=== PATIENT | female | born 1975 | race Caucasian/White ===

== ENCOUNTER 2020-12-31 00:27 | Observation (INO) | payer OTHER, SELFPAY ==
[2020-12-31] VITALS (54 sets, daily range): BP systolic 97–146; BP diastolic 55–91; PULSE 54–92; RESP 12–21; TEMP 36.1–36.8; O2SAT 96–100; BMI 29.5
--- NOTE | ~2020-12-31 | CT_ITS ---
EXAMINATION: CT brain wo con INDICATION: Headache and altered mental status COMPARISON: None TECHNIQUE: Standard unenhanced head CT. The dose-length product (DLP) was 605.33 mGy-cm. The mA was a djusted according to patient size. Iterative reconstruction technique was employed. FINDINGS: There is no intracranial hemorrhage, acute infarction, or abnormal mass lesion. The ventric les are normal. There is no abnormal mass effect or midline shift. The hercules-white matter differentiat ion is normal. The basal cisterns are patent. The orbits are normal. There is mild mucosal thickening of the paranasal sinuses. IMPRESSION: 1. No acute intracranial abnormality. Reviewed, dictated and finalized at location A.
--- NOTE | ~2020-12-31 | CT_ITS ---
EXAMINATION: CTA brain carotid DATE: 12/31/2020 06:48 INDICATION: Headache, repetitive speech TECHNIQUE: Computed tomographic angiography (CTA) of the head was performed without and with 100 mL O mnipaque-350 intravenous contrast. CTA of the neck was performed with intravenous contrast. The dose- length product was 1131.84 mGy-cm. Maximum intensity projection and volume rendered 3D-reconstruction s were created by the technologist on a separate workstation. Automated exposure control and iterativ e reconstruction technique were employed. COMPARISON: None. FINDINGS: HEAD CTA: There is no intracranial hemorrhage, acute infarction, or abnormal mass lesion. The ventric les are normal. There is no abnormal mass effect or midline shift. The hercules-white matter differentiat ion is normal. The basal cisterns are patent. The orbits are normal. There is mild mucosal thickening of the paranasal sinuses. . There is no significant stenosis of the basilar artery or posterior cerebral arteries. There is no si gnificant stenosis of the intracranial internal carotid arteries or the anterior or middle cerebral a rteries. The anterior communicating artery and left posterior communicating arteries are normal. The right posterior communicating artery is diminutive. There is no aneurysm. NECK CTA: The thyroid gland is unremarkable. The submandibular and parotid glands are symmetric. Ther e is no lymphadenopathy. There are no masses identified. The airway is unremarkable. There is mild ce rvical spondylosis. The superior mediastinum is unremarkable. There is 0% stenosis of the proximal right internal carotid artery relative to normal distal artery l umen diameter (NASCET criteria). There is 0% stenosis of the proximal left internal carotid artery re lative to normal distal artery lumen diameter. IMPRESSION: 1. No acute intracranial abnormality. Unremarkable head CTA. 2. 0% stenosis of the proximal right internal carotid artery relative to normal distal artery lumen d iameter (NASCET criteria). 3. 0% stenosis of the proximal left internal carotid artery relative to normal distal artery lumen di ameter. Reviewed, dictated and finalized at location A. IMPRESSION: 1. No acute intracranial abnormality. Unremarkable head CTA. 2. 0% stenosis of the proximal right internal carotid artery relative to normal distal artery lumen diameter (NASCET criteria). 3. 0% stenosis of the proximal left internal carotid artery relative to normal distal artery lumen diameter.
--- NOTE | ~2020-12-31 | MR_ITS ---
EXAMINATION: MR brain/brain stem wo/w con EXAM DATE: 12/31/2020 12:57 INDICATION: Headache. TECHNIQUE: Magnetic resonance imaging (MRI) of the brain/brain stem obtained without contrast. Sagit rich T1, axial diffusion, gradient echo (T2*), T1, T2, FLAIR sequences obtained. Patient was then inj ected with 14 cc intravenous Multihance contrast. Axial and coronal postcontrast T1 weighted sequence s obtained. Correlation is made to head CT earlier same day. FINDINGS: Small region of left periventricular nonspecific white matter signal T2 hyperintensity, wit hin normal limits for patient's age. There are no areas of restricted diffusion to suggest acute infa rction. There is no acute hemorrhage seen on the T2*, a hemosiderin sensitive sequence. No intrapar enchymal brain mass. The ventricles are normal in size. There are no extra-axial collections. Flow voids are seen in the cerebral arteries on the T2-weighted sequences consistent with their expected p atency. The orbits are unremarkable. Soft tissue is unremarkable. There are no areas of abnormal enhancement on the postcontrast images. IMPRESSION: 1. No acute intracranial findings. Reviewed, dictated and finalized at location B.
[2020-12-31 00:59] LABS: Basophils Percent Auto 0.5 % (0.2-1.2); Eosinophils Absolute Auto 0.2 K/mm3 (0-0.3); Eosinophils Percent Auto 2.2 % (0-4.4); Hematocrit 44.5 % (37.0-47.0); Immature Granulocyte Absolute 0.03 K/mm3 (0.00-0.031); Immature Granulocyte Percent A 0.4 % (0-0.5); Lymphocytes Absolute Auto 2.03 K/mm3 (0.9-3.2); Lymphocytes Percent Auto 27.3 % (18.3-44.2); Mean Corpuscular HGB Conc 33.7 g/dl (32-36); Mean Corpuscular Hemoglobin 29.4 pg (26-34); Mean Corpuscular Volume 87.3 fl (80-100); Mean Platelet Volume 10.4 fl (7.4-10.4); Monocytes Absolute Auto 0.4 K/mm3 (0.1-0.6); Monocytes Percent Auto 5.2 % (2.6-8.5); Neutrophils Absolute Auto 4.8 K/mm3 (1.3-6.7); Neutrophils Percent Auto 64.4 % (45.5-73.1); Platelet Count Result 302 k/mm3 (150-375); Red Cell Distribution Width 13.2 % (11.5-14.5); White Blood Count 7.4 K/mm3 (4.5-10.0)
[2020-12-31] MEDS: SODIUM CHLORIDE 0.9% IV 1,000 ML 999 ML IV CONT (01:04)
[2020-12-31] MEDS: PROCHLORPERAZINE EDISYLATE 10 MG/2 ML VIAL IV PUSH (01:05)
[2020-12-31] MEDS: KETOROLAC 30 MG/ML VIAL (*BKC) 15 MG IV PUSH (01:05)
[2020-12-31] MEDS: diphenhydrAMINE HCl INJ 50 MG/ML VIAL IV PUSH (01:05)
[2020-12-31 01:06] LABS: Add Urine Microscopic? NO; Appearance Urine Clear (Clear); Bilirubin Urine Negative (Negative); Blood Urine Negative (Negative); Color Urine Yellow (Yellow); Glucose Urine UA Negative (Negative); Ketones Urine Negative (Negative); Leukocyte Esterase Ur Negative LEU/UL (Negative); Nitrate Urine Negative (Negative); Protein Urine Negative (Negative); Specific Grav Ur 1.015 (1.001-1.035); Urobilinogen Urine Negative mg/dL (<2.0)
--- NOTE | 2020-12-31 01:09 | ED.GENADULT ---
HPI - General Adult General Chief complaint: Unspecified <Andrew Mueller MD - Last Filed: 12/31/20 07:06> Stated complaint: nausea vomiting x 30 min <Andrew Mueller MD - Last Filed: 12/31/20 07:06> Time Seen by Provider: 12/31/20 00:38 <Andrew Mueller MD - Last Filed: 12/31/20 07:06> History of Present Illness HPI narrative: Patient is a 45-year-old female presents to emergency department with chief complaint of headache. Patient reports that this evening she started having severe pain in her head reports nausea photophobia patient states is not able to get comfortable in any position reports is not improved by anything. Patient denies focal neurological deficit. Patient significant other reports symptoms started this evening around midnight patient does report that she has been having a headache for about a week. <Andrew Mueller MD - Last Filed: 12/31/20 07:06> Related Data Home medications: Home Medications Medication Instructions Recorded Confirmed No Home Medications 12/31/20 12/31/20 <Andrew Mueller MD - Last Filed: 12/31/20 07:06> Allergies/adverse reactions: Allergies Allergy/AdvReac Type Severity Reaction Status Date / Time No Known Allergies Allergy Verified 12/31/20 00:31 <Andrew Mueller MD - Last Filed: 12/31/20 07:06> Review of Systems Review of Systems: A 10 system review of systems was completed on the patient and is negative except for what is stated in the HPI. Nursing and ancillary documentation was reviewed. <Andrew Mueller MD - Last Filed: 12/31/20 07:06> Exam Narrative: GENERAL: Well-appearing, well-nourished, and in no acute distress. HEAD: Normocephalic, atraumatic. EYES: PERRLA and EOMI. ENT: Nares clear, no rhinorrhea or epistaxis. Mucous membranes moist. NECK: Supple. CHEST: Clear to auscultation. No respiratory distress. HEART: Regular rate and rhythm. No murmur heard. Normal peripheral pulses. ABDOMEN: Soft, nontender, nondistended, normal active bowel sounds. EXTREMITIES: Normal range of motion. No edema. SKIN: Warm, dry, no rash. NEURO: No focal deficits. Alert and oriented x3. PSYCH: Normal mood and affect. <Andrew Mueller MD - Last Filed: 12/31/20 07:06> Course Course Emergency Course: Patient was treated with antiemetics Benadryl and low-dose Toradol the patient after receiving these does report that the headache has improved but has occasional episodes where she has had repeated questioning and has had problems answering the appropriate answer to a question. The patient still has no focal motor deficit the case was discussed with the on-call stroke neurologist at [facility] who given the patient's overall presentation felt this was highly unlikely to be a stroke event. A CTA was obtained to determine if there is any large vessel occlusion. If this is negative the plan will be to admit the patient for MRI and neurological consultation <Andrew Mueller MD - Last Filed: 12/31/20 07:06> Reevaluation(s) Reevaluation #2: Patient with persistent headache. Informed results. Will admit for observation and MRI and pain control. Discussed case with neurology as well as hospitalist service. <Pernell Chaudhary MD - Last Filed: 12/31/20 08:17> Date: 12/31/20 <Pernell Chaudhary MD - Last Filed: 12/31/20 08:17> Time: 08:16 <Pernell Chaudhary MD - Last Filed: 12/31/20 08:17> Vital Signs Vital signs: Vital Signs Temperature 97.7 F 12/31/20 00:23 Pulse Rate 84 12/31/20 00:23 Respiratory Rate 20 12/31/20 00:23 Blood Pressure 131/82 12/31/20 00:23 Pulse Oximetry 99 12/31/20 00:23 Temperature 97.7 F 12/31/20 00:23 Pulse Rate 72 12/31/20 07:32 Respiratory Rate 16 12/31/20 07:32 Blood Pressure 139/73 12/31/20 07:30 Pulse Oximetry 98 12/31/20 07:01 <Andrew Mueller MD - Last Filed:
[2020-12-31 01:12] LABS: Alanine Aminotransferase 13 U/L (4-35); Albumin Level 4.3 g/dL (3.5-5.1); Alkaline Phosphatase 62 U/L (38-126); Anion Gap 11 mmol/L (8-16); Aspartate Amino Transferase 18 U/L (14-36); Bilirubin,Total 0.3 mg/dL (0.2-1.3); Blood Urea Nitrogen 11 mg/dL (7-17); Calcium 9.5 mg/dL (8.4-10.2); Carbon Dioxide 22 mmol/L (22-30); Chloride 104 mmol/L (98-107); Estimated Glomerular Filt Rate > 60; Glucose 119 mg/dL (65-110); Lipase 124 U/L (23-300); Potassium 3.6 mmol/L (3.4-5.0); Sodium 137 mmol/L (137-145)
[2020-12-31 01:13] LABS: Lactic Acid Reflex 1.4 mmol/L (0.7-2.1)
--- NOTE | 2020-12-31 01:27 | PC.NURSE ---
Pt asked to go to the bathroom. pct notified and upon entry to room found pt squatting and urinating on the floor.
--- NOTE | 2020-12-31 01:56 | PC.NURSE ---
Pt here after ems called to her home for vomiting. On arrival, pt c/o headache x 1 week worse tonight. able to answer her name, and speech delayed but clear. unable to state birthday. per boyfriend, pt has no hx of same. he reports pt c/o stomach pain x 1 week and brown tonight. On MD arrival in room, pt more responsive and able to answer his questions without difficulty. still tearful at times. Pt also called out, stating she had to urinate. on embedded software engineer arrival in room, pt found squatting in corner, urinating on floor. pt also continuously pulling off monitoring equipment including cardiac leads, pulse ox, and bp cuff.
--- NOTE | 2020-12-31 02:53 | PC.NURSE ---
Pt resting on stretcher c eyes closed. resps even, nonlabored, regular, symmetrical. no s/s of distress. will continue to monitor.
[2020-12-31 04:00] LABS: Barbiturate Screen Urine Negative (Negative)
[2020-12-31 04:01] LABS: Amphetamine Screen Urine Negative (Negative); Cannabinoid Screen Urine Negative (Negative); Cocaine Screen Urine Negative (Negative); Methadone Screen Urine Negative (Negative); Opiate Screen Urine Negative (Negative); Phencyclidine Screen Urine Negative (Negative)
[2020-12-31 04:05] LABS: Benzodiazepines Screen Urine Negative (Negative)
--- NOTE | 2020-12-31 05:16 | PC.NURSE ---
Pt ambulated with unsteady gait with assist of 2 ED techs per verbal order from ED MD. Back to ED 12 and to [facility] assist. When asked if pt's headache was better, pt nodded in assent. When asked where she was at, pt able to state hospital , but when asked which specific hospital she was at, pt kept repeating hospital . ED MD notified, and pt continues to be monitored with family at bedside. no s/s of distress.
--- NOTE | 2020-12-31 06:02 | PC.NURSE ---
Pt continues to have repetitive speech patterns. when asked her name, pt able to answer correctly. but when asked her age, pt continues to repeat her name. After multiple repetitions, pt able to state 29 , but not month or year of . pt continues to repeat 29 . notified and in room with this RN to assess pt. will continue to monitor.
[2020-12-31] MEDS: MORPHINE SULFATE (*CRX) 4 MG/ML INJ IV PUSH ×2 (07:50→09:35)
[2020-12-31] MEDS: SODIUM CHLORIDE 0.9% IV 1,000 ML 125 ML IV CONT ×2 (09:36→18:50)
--- NOTE | 2020-12-31 10:33 | ADMGEN ---
This patient, Mary Gunderson, was admitted to 3 [facility] Surg Room 324-01. Patient/family oriented to hospital policies and general routines including ID bracelet, bed and alarms, visiting hours, pain management, procedures, bathroom and other care routines, personal items, smoking policy, room service/diet, and visiting hours. Information on how to activate the Rapid Response Team has been discussed. Patient/Family are encouraged to report perceived risks to care and to ask questions if they do not understand what they are told or what they should do. BOYFRIEND AT BEDSIDE
[2020-12-31] MEDS: HYDROcodone/acetaminophen (*CRX) 5-325 MG TABLET 1 TAB PO (14:16)
--- NOTE | 2020-12-31 15:33 | PM.IMHP ---
H&P: HPI History of Present Illness Date/Time: 12/31/20 15:33 Chief Complaint: Headache Narrative: Patient is a 45-year-old female who presents to the ED with complaint of headache that started about a week ago. The headache is in the frontal area. There is a so associated watering of the eyes. No sinus pain or cough or shortness of breath or chest pain. The pain has been constant however was aggravated last night which brought her to the ER. The pain is associated with nausea and abdominal pain last night there is also associated photophobia with the pain that started since the week now she denies any prior history of headaches or migraines in the past. She reports she had some tingling and numbness in her month forearm yesterday along with her headache. No fever or chills shortness of breath chest pain no lower extremity pain or weakness. CT head in the ER was done which suggested no acute abduction abnormality. This was followed by head neck CTA which showed no acute intracranial abnormality unremarkable head CT a no carotid artery disease noted as well. Patient was treated with antiemetic Benadryl and low-dose Toradol which improved some headache. And on called stroke neurologist at [facility] was contacted and was felt it was highly unlikely to be a stroke event and suggested admission in this hospital and further neurology consultation. Dr. Murphy has been contacted and suggested admission and further evaluation an MRI brain. She is getting admitted for above reasons Review of Systems Review of Systems: - CONSTITUTIONAL: Denies weight loss, fever and chills. - HEENT: Reports changes in vision and denies hearing loss - RESPIRATORY: Denies SOB and cough. - CV: Denies palpitations and CP. - GI: Reports abdominal pain, nausea, denies vomiting and diarrhea. - : Denies dysuria and urinary frequency. - MSK: Denies myalgia and joint pain. - SKIN: Denies rash and pruritus. - NEUROLOGICAL: Reports headache and denies syncope. - PSYCHIATRIC: Denies recent changes in mood. Denies anxiety and depression. All systems reviewed & are unremarkable except as noted in HPI and below Constitutional: Constitutional: Reports fatigue and Reports weakness Neurologic: Reports weakness Endocrine: Endocrine: Reports fatigue [facility] Family History Family History (Updated 12/31/20 @ 10:42 by Xochitl Gallardo RN) Mother Cerebrovascular accident Father Acute myocardial infarction Social History Social History Smoking packs per day: 0.5 Smoking cigarettes per day: 10.0 Years smoked: 20 Smoking pack-years: 10.00 Smoking status: Current every day smoker Tobacco type: cigarettes Alcohol intake: never Substance use: never Substance use type: does not use Spiritual care concerns: No Meds Home Medications and Allergies Home Medications Medication Instructions Recorded Confirmed Type No Home Medications 12/31/20 12/31/20 History Allergies Allergy/AdvReac Type Severity Reaction Status Date / Time No Known Allergies Allergy Verified 12/31/20 00:31 Vital Signs Vital Signs - 24 hr 12/31/20 00:23 12/31/20 01:01 12/31/20 01:02 Temperature 97.7 F Pulse Rate 84 85 79 Respiratory Rate 20 17 17 Blood Pressure 131/82 128/79 Pulse Oximetry 99 12/31/20 01:18 12/31/20 01:30 12/31/20 01:36 Temperature Pulse Rate 80 Respiratory Rate 17 Blood Pressure 97/80 L Pulse Oximetry 99 99 100 12/31/20 01:45 12/31/20 01:47 12/31/20 01:48 Temperature Pulse Rate 64 68 67 Respiratory Rate 14 18 14 Blood Pressure 111/56 L Pulse Oximetry 98 100 100 12/31/20 02:00 12/31/20 02:03 12/31/20 02:19 Temperature Pulse Rate 92 66 Respiratory Rate 17 16 Blood Pressure 116/75 Pulse Oximetry 100 100 12/31/20 02:30 12/31/20 02:31 12/31/20 02:32 Temperature Pulse Rate 74 73 70 Respiratory Rat
[2020-12-31] MEDS: SUMAtriptan SUCCINATE 25 MG TABLET 50 MG PO (17:37)
[2020-12-31] MEDS: ACETAMINOPHEN 325 MG TABLET 650 MG PO (22:10)
[2021-01-01] VITALS: PULSE 54
[2021-01-01] MEDS: SODIUM CHLORIDE 0.9% IV 1,000 ML 125 ML IV CONT (03:00)
[2021-01-01 03:56] VITALS: BP 127/66; PULSE 59; RESP 17; TEMP 36; O2SAT 100
[2021-01-01 04:00] VITALS: PULSE 72
[2021-01-01] MEDS: HYDROcodone/acetaminophen (*CRX) 5-325 MG TABLET 1 TAB PO (09:08)
[2021-01-01 09:15] VITALS: PULSE 81
[2021-01-01 10:12] LABS: Folic Acid 5.2 ng/mL (2.76->20)
[2021-01-01] MEDS: CYANOCOBALAMIN 1,000 MCG TABLET 1000 MCG PO (12:33)
[2021-01-01 14:00] VITALS: BP 104/65; PULSE 69; RESP 18; TEMP 36.4; O2SAT 99
--- NOTE | 2021-01-01 16:58 | WPDNEURCNPN ---
Assessment and Plan Additional Plan Even though the patient thought it was the 1st episode of headache but on further conversation she managed to say that she had had milder headaches before her happened to be in the room after thorough discussion I started her on Imitrex p.r.n. for the headache in addition to transient 3.75 mg p.o. HS she has been advised to call me the headaches recur and I will consider changing the medication all the pros and cons of the diagnosis were discussed Consult date: 01/01/21 HPI: Mary Gunderson is a 45 year old female 45 years old lady has been admitted to [facility] through the emergency room for the complaints of 3 of a headache which she never had before of 1 week duration mainly located in the frontal area without associated any other neurological signs the pain had been constant however it was aggravated last night when she was brought to the emergency room along with nausea and abdominal pain there was no history of such headaches in the past she did complain of tingling and numbness in her perioral area and forearm CT head of in the emergency room was negative CTA of the head also revealed no evidence of aneurysm or territorial blockage patient was treated symptomatically with the diagnosis of migraine and neuro consultation was obtained for that particular reason as well Review of Systems Review of Systems: All systems reviewed & are unremarkable except as noted in HPI and below PMFSH Family History Family History Mother Cerebrovascular accident Father Acute myocardial infarction Social History Social History Smoking packs per day: 0.5 Smoking cigarettes per day: 10.0 Years smoked: 20 Smoking pack-years: 10.00 Smoking status: Current every day smoker Tobacco type: cigarettes Alcohol intake: never Substance use: never Substance use type: does not use Spiritual care concerns: No Meds Home Medications and Allergies Home Medications Medication Instructions Recorded Confirmed Type clorazepate dipotassium [Tranxene 3.75 mg PO HS 60 Days #30 tablet 01/01/21 Rx T-Tab] sumatriptan succinate [Imitrex] 50 mg PO PRN PRN #30 tablet 01/01/21 Rx Allergies Allergy/AdvReac Type Severity Reaction Status Date / Time No Known Allergies Allergy Verified 12/31/20 00:31 Vital Signs Vital Signs - 24 hr 12/31/20 20:00 12/31/20 20:44 12/31/20 21:07 Temperature 36.1 C L Pulse Rate 54 L 57 L 62 Respiratory Rate 16 16 Blood Pressure 136/73 Pulse Oximetry 98 98 01/01/21 00:00 01/01/21 03:56 01/01/21 04:00 Temperature 36.0 C L Pulse Rate 54 L 59 L 72 Respiratory Rate 17 Blood Pressure 127/66 Pulse Oximetry 100 01/01/21 09:15 01/01/21 14:00 Temperature 36.4 C Pulse Rate 81 69 Respiratory Rate 18 Blood Pressure 104/65 Pulse Oximetry 99 Exam Narrative: examination revealed her to be awake alert cooperative in no obvious acute distress at this particular time head was normocephalic with no cranial bruit ear nose throat examination was normal neck was supple with no cervical bruits no thyromegaly no lymphadenopathy heart was regular with no murmur lungs were clear to auscultation with no crepitations abdomen was soft with no organomegaly. Neurological examination revealed her to be awake alert oriented x3 his speech nor dysphasic not dysarthric nor dysphonic pupils round regular feels the vision full extraocular movements. Face symmetrical tongue midline motor examination revealed her to have no drift a one-sided other side tone normal reflexes symmetrical plantars downgoing no evidence of ataxia or dysmetria on [id number]-finger and heel to knee to pang. Results Labs CBC & Chem 7: 12/31/20 00:53 12/31/20 00:53 [facility]G Consult Billing Inpatient Consult [id number] Consult Moderate
--- NOTE | 2021-01-01 17:01 | PM.DS ---
DS: Admitting Diagnosis Discharge Date 01/01/21 Admitting Diagnosis migraine DS: Discharge Diagnosis Discharge Diagnosis (1) Migraine: Code(s): G43.909 - Migraine, unspecified, not intractable, without status migrainosus Status: Acute DS: Summary Hospital Course Hospital Course: DOS 01/01/21 Pt is 45-year-old female who presented emergency room due to severe frontal headache. She did also mention that she had some tingling and numbness around her mouth yesterday. Vitals in the ER temperature 97.7? F, pulse 84, respiratory rate 20, blood pressure 131/82, pulse ox 99 on room air. CBC and BMP within normal limits. UA with no sign of infection. test negative. Head CT showed no acute abnormalities. CTA of the brain was unremarkable was 0% stenosis. Patient was admitted to the hospitalist service and given any done medications to help such as Imitrex, Benadryl, ketorolac, morphine, hydrocodone etc. she underwent MRI of the brain showed no acute findings. The day of discharge the patient was feeling much better and only had a very mild headache. She had no further numbness or tingling. She did have a slightly low B12 lab which was replaced to see if that helped with her numbness and tingling around her mouth. She is to follow up with her primary care physician about that. Neurology was consulted and recommended some medications outpatient. I did inform her in the discharge instructions to only use tranxene sparingly as needed as this can have potential for addiction. She was educated about the worrisome signs and symptoms to come back to emergency room for and was discharged in stable condition Status at Discharge Functional status at discharge: independent ambulation Time Spent with Patient Time attestation: Total time spent providing and/or coordinating discharge services:38 min Time spent: Greater than 30 minutes Exam Narrative: General: Well developed well nourished patient in NAD HEENT: normocephalic Neck: supple Neuro: Alert and oriented x4. Cranial nerves 2-12 intact. Equal strength the upper lower extremity 5/5. Able to do [id number] and rapid alternating movements CV:RRR Resp:CTA Abd: Soft, non distended. No pain to palpation. Positive bowel sounds Extremities: No swelling, erythema, or pain to palpation. DS: Data Data Completed and Pending Labs on day of discharge: Labs from last 24 hours 01/01/21 08:39 Vitamin B12 263.0 Folate 5.2 Discharge Plan Discharge Attending physician on discharge: Brittani Ferguson Consulting providers: Jorge L Murphy Discharging Clinician: Roxana Alba Patient Disposition: Home, Self-Care Activity: as tolerated Diet: regular Discharge Instructions: Do not drive on clorazepate (tranxene). Please note, this medication can be addicting and should only be taken for short amount of time. Please follow-up with Dr. Murphy, Neurology if you have further questions with this medication -If you have stroke like symptoms which include: numbness/tingling to any part of the body, asymmetrical features, problems with speech, problems with word-finding, problems with balance or walking, or worsened confusion call 911 -follow-up with your primary care physician in 1-2 weeks about this stay Worrisome signs and symptoms come back to emergency room for: Chest pain, shortness of breath, progressive significant weakness, fevers 100.4 or greater, worsening headache, or any other worrisome symptom Patient Instructions: Antibiotic Form, How to Stop Smoking (GEN), Cigarette Smoking and Your Health (GEN) Stand Alone Forms: General Discharge Information, Work/School Release IP Follow-up/Referrals: Jorge L Murphy MD [Physician] - 6 Weeks Discharge Medications: New cyanocobalamin (vitamin B-12) [Vitamin B-12] 1,000 mcg Tablet 1,000 mcg PO QAM Qty: 30 RF: 0 clorazepate dipotassium [Tranxene T-Tab] 7.5 mg Tablet 3.75 mg P
== END 2021-01-01 18:06 | disposition home or self-care (01) ==
LOC: ANHED 08:17 → ANH3MEDSUR 08:26
PROVIDERS: Emergency Medicine; Physician Assistant; Admitting Provider Internal Medicine; Emergency Provider Emergency Medicine; PCP Advanced Practice Midwife; Visit Provider Family Medicine
DX: G43.909 Migraine, unspecified, not intractable, without status migrainosus (principal); R10.9 Unspecified abdominal pain; R11.0 Nausea; F17.210 Nicotine dependence, cigarettes, uncomplicated; R41.0 Disorientation, unspecified
CPT/HCPCS: 36415; 70450; 70496; 70498; 70553; 80053; 80307; 81003; 81025; 82607; 82746; 83605; 83690; 85025; 96360; 96361; 96374; 96375; 96376; 99285; A9270; A9577; G0378; G0379; J0780; J1200; J1885; J2270; J7030; Q9967

== ENCOUNTER 2021-01-16 10:44 | Outpatient (CLI) | payer OTHER, SELFPAY ==
[2021-01-16 11:22] LABS: Hemoglobin A1C 5.1 % (<5.7)
[2021-01-16 11:26] LABS: Albumin Level 4.1 g/dL (3.5-5.1); Anion Gap 8 mmol/L (8-16); Blood Urea Nitrogen 9 mg/dL (7-17); Calcium 9.3 mg/dL (8.4-10.2); Carbon Dioxide 21 mmol/L (22-30); Chloride 109 mmol/L (98-107); Cholesterol 135 mg/dL (0-200); Estimated Glomerular Filt Rate > 60; Glucose 90 mg/dL (65-110); HDL Direct 35 mg/dL; Phosphorus 3.8 mg/dL (2.5-4.5); Potassium 4.1 mmol/L (3.4-5.0); Sodium 138 mmol/L (137-145); Triglycerides 148 mg/dL (<150)
[2021-01-16 11:33] LABS: Rheumatoid Factor < 8.6 IU/ML (<12)
[2021-01-16 11:36] LABS: LDL Cholesterol Direct 76 mg/dL
[2021-01-16 11:40] LABS: Creatinine Urine 216.3 mg/dL
[2021-01-16 11:46] LABS: MALB Creatinine Ratio 3.4 mg/g (0-30); Microalbumin Urine Random 7.3 mg/L (0-16.7)
[2021-01-16 12:49] LABS: Erythrocyte Sedimentation Rate 8 mm/hr (0-20)
== END 2021-01-16 10:45 | disposition home or self-care (01) ==
PROVIDERS: PCP Emergency Medicine; Visit Provider Emergency Medicine
DX: Z00.00 Encounter for general adult medical examination without abnormal findings (principal)
CPT/HCPCS: 36415; 80061; 80069; 82043; 83036; 84439; 84443; 85652; 86038; 86430

== ENCOUNTER 2021-01-30 14:02 | Outpatient (CLI) | payer OTHER, SELFPAY ==
--- NOTE | ~2021-01-30 | US_ITS ---
US abdomen complete EXAMINATION: US Abdomen Complete INDICATION: Abdomen pain for 2 months. PROCEDURE: Realtime High Resolution abdomen ultrasound. COMPARISON: Ultrasound dated 11/28/2016 FINDINGS: There are multiple echogenic foci in the gallbladder lumen some of which shadow and some no t, likely a combination of a bladder polyps and gallstones. Common bile duct measures 6.5 mm. Liver echotexture within normal limits without focal mass. Pancreas within normal limits. Pancreati c tail is obscured by bowel gas. Spleen is unremarkeable. Renal echotexture is within normal limits bilaterally without hydronephrosis, contour deforming mass or renal stone. Right kidney measures 11.1 cm. Left kidney measures 10.2 cm. Visualized aspects of the aorta and IVC are within normal limits. Portal vein is patent. No sonograph ic Vega's sign indicated by the technologist. IMPRESSION: 1: Multiple echogenic foci of the gallbladder which likely represents a combination of stones and gal lbladder polyps. Reviewed, dictated and finalized at location A. WORK OPERATOR IMPRESSION: 1: Multiple echogenic foci of the gallbladder which likely represents a combina tion of stones and gallbladder polyps.
== END 2021-01-30 14:03 | disposition home or self-care (01) ==
LOC: ANHIMG 14:07
PROVIDERS: PCP Emergency Medicine; Visit Provider Advanced Practice Midwife
DX: R10.9 Unspecified abdominal pain (principal); R93.3 Abnormal findings on diagnostic imaging of other parts of digestive tract
CPT/HCPCS: 76700

== ENCOUNTER → 2021-04-03 01:47 | Outpatient (CLI) | payer OTHER, SELFPAY ==
[2021-04-03 19:36] LABS: SARS-CoV-2 RNA PCR Negative
== END ==
PROVIDERS: PCP Emergency Medicine; Visit Provider Surgery
DX: Z01.812 Encounter for preprocedural laboratory examination (principal); Z20.822 Contact with and (suspected) exposure to COVID-19
CPT/HCPCS: C9803; U0003; U0005

== ENCOUNTER 2021-04-03 09:45 | Outpatient (CLI) | payer OTHER, SELFPAY ==
[2021-04-03 11:05] LABS: Alanine Aminotransferase 17 U/L (4-35); Albumin Level 4.4 g/dL (3.5-5.1); Alkaline Phosphatase 63 U/L (38-126); Amylase 68 U/L (30-110); Aspartate Amino Transferase 22 U/L (14-36); Bilirubin,Total 0.5 mg/dL (0.2-1.3); Lipase 49 U/L (23-300)
== END 2021-04-03 09:46 | disposition home or self-care (01) ==
LOC: ANHSURGERY 09:48
PROVIDERS: PCP Emergency Medicine; Visit Provider Surgery
DX: Z01.818 Encounter for other preprocedural examination (principal); K80.20 Calculus of gallbladder without cholecystitis without obstruction
CPT/HCPCS: 36415; 80076; 82150; 83690; 86850; 86900; 86901; C9803; U0003; U0005

== ENCOUNTER 2021-04-05 01:31 | Day surgery (SDC) | payer OTHER, SELFPAY ==
[2021-04-01 11:57] VITALS: BMI 28.3
--- NOTE | 2021-04-01 12:13 | PC.NURSE ---
Report to the Outpatient Waiting Room, entrance under the green pavilion located off [facility], at time 10:00 on date 04/05/21. OR Time: 12:00. - You will be asked a series of questions to screen for COVID 19 for your protection. - A mask is required within the hospital. - No visitors are allowed at this time. Preoperative COVID Testing Requirements: MARCH 2021 - E-MAILING RESULT No COVID Test needed if: (proof is required; if not received patient will have Rapid Test prior to entry) - Patient has received COVID Vaccine at least 14 days prior to procedure date or - Patient has positive COVID test result within last 90 days of surgery date. COVID Test needed if above criteria is not met Patients may have clear liquids (water, carbonated beverages, clear teas, apple juice) until 3 hours prior to surgery (9:00) with a maximum of 20 ounces. - No food from midnight until time of surgery Take the following medications with a SIP of water the morning of surgery: PREGABALIN, NURTEC (IF NEEDED) Medications to discontinue per physician: VITAMINS/SUPPLEMENTS Date to take last dose: 04/01/21 Please no make-up, nail hong konger, hairspray, perfume, deodorant, or body powder the day of surgery. No jewelry (including any body piercings) or valuables the day of surgery, leave them at home. Please take a shower or bath the night before, or the morning of, surgery with an antibacterial soap. Wear comfortable, loose fitting clothing. HIBICLENS SHOWER - Jewelry must be removed prior to entering the operating room. Rings and piercings that are not removed may be cut off. - The hospital will not accept responsibility for valuables. - Please leave all valuables, including medications, at home the day of surgery. If you are going home after surgery, a licensed special events driver must drive you home. - NO public transportation without another adult. - We recommend that an adult stay with you for 24 hours following discharge. - We also recommend that you do not drive, make important decision, drink alcoholic beverages, or take any drugs that were not prescribed by your health care provider for at least 24 hours after your discharge time. Follow any additional instructions given to you from your surgeon. Telephone instructions given to TRUDY BARNES and asked if any additional questions and then verbalized understanding. Patient advised to call surgeon office or pre surgery nurse liaison [phone] if any additional questions.
[2021-04-05] VITALS (14 sets, daily range): BP systolic 106–143; BP diastolic 64–77; PULSE 75–95; RESP 14–20; TEMP 36.8–37.4; O2SAT 96–100
[2021-04-05] MEDS: LACTATED RINGERS 1,000 ML 30 ML IV CONT ×3 (10:56→15:53)
--- NOTE | 2021-04-05 11:31 | WPDHPUPDATE1 ---
History and Physical Update Update Date/Time: 04/05/21 11:31 History and Physical has been reviewed, including an updated exam of the patient. There are NO changes in the patient's condition. Risks, benefits, and alternatives have been discussed and questions answered. Patient agrees to proceed with procedure.
--- NOTE | 2021-04-05 11:32 | PM.IMHP ---
H&P: HPI History of Present Illness Date/Time: 04/05/21 11:32 Chief Complaint: RUQ pain Narrative: 45 yo woman presents for laparoscopic cholecystectomy. She reports no changes since last seen in office. Review of Systems Review of Systems: All systems reviewed & are unremarkable except as noted in HPI and below Constitutional: Constitutional: Denies chills, Denies fever(s), Denies headache(s) and Denies weight loss Eyes: Eyes: Denies change in vision ENT: Denies dizziness, Denies headache(s), Denies neck mass and Denies throat swelling Cardiovascular: Cardiovascular: Denies chest pain, Denies lightheadedness and Denies dyspnea Respiratory: Respiratory: Denies cough, Denies dyspnea and Denies wheezing Gastrointestinal: Gastrointestinal: Denies abdominal pain, Denies change in bowel habits, Denies nausea and Denies vomiting Genitourinary: Genitourinary: Denies hematuria and Denies dysuria Musculoskeletal: Musculoskeletal: Reports as per HPI Integumentary/Breasts: Skin/Breast: Reports as per HPI Neurologic: Denies dizziness and Denies headache(s) Allergic/Immunologic: Allergic/Immunologic: Denies throat swelling and Denies wheezing [facility] Past Medical History Medical History delivery delivered Family History Family History Mother Cerebrovascular accident Father Acute myocardial infarction Social History Social History Social History: occasional caffeine use Smoking packs per day: 0.5 Smoking cigarettes per day: 10.0 Years smoked: 20 Smoking pack-years: 10.00 Smoking status: Current every day smoker Tobacco type: cigarettes Alcohol intake: never Substance use: never Substance use type: does not use Living arrangements: with family Spiritual care concerns: No Meds Home Medications and Allergies Home Medications Medication Instructions Recorded Confirmed Type cyanocobalamin (vitamin B-12) 1,000 mcg PO QAM #30 tablet 01/01/21 04/01/21 Rx [Vitamin B-12] rimegepant 75 mg disintegrating 75 mg PO ONCE PRN 02/18/21 04/01/21 History tablet pregabalin 50 mg PO BID 04/01/21 04/01/21 History Allergies Allergy/AdvReac Type Severity Reaction Status Date / Time No Known Allergies Allergy Verified 04/01/21 11:56 Vital Signs Vital Signs - 24 hr 04/05/21 10:55 Temperature 37.4 C Pulse Rate 75 Respiratory Rate 14 Blood Pressure 106/72 Pulse Oximetry 98 Exam Const: General: no acute distress and alert Orientation/consciousness: patient oriented x3 HENMT: Head: normocephalic and atraumatic Ears: hearing grossly normal bilaterally General nose exam: Normal nares present Mouth: Yes Normal oral and palatal mucosa present Eyes: Periorbital: periorbital findings normal Sclera: sclerae normal EOM: EOMs intact bilaterally Neck: Neck: normal visual inspection, no lymphadenopathy and trachea midline Chest: Chest palpation & inspection: normal inspection of the chest Resp: Effort & Inspection: normal respiratory effort Auscultation: clear to auscultation bilaterally Cardio: Jugular venous distension: no JVD Rate: regular rate Rhythm: regular rhythm Heart sounds: S1 normal heart sound present and S2 normal heart sound present Peripheral pulses: Peripheral pulses 2+ throughout GI: Inspection: normal to inspection GI Palp: Yes Soft to palpation, No Tenderness to palpation present (GI), No Guarding due to palpation present (GI) and No Rebound tenderness present Percussion: Yes normal to percussion Auscultation: normal bowel sounds : General: Yes no CVA tenderness Back/Spine/Pelvis: Back: no CVA tenderness Neuro: General: patient oriented x3, no focal motor deficits and CN's II-XI intact bilaterally Cognition (Neuro): normal cognition Speech: normal speech Motor exam (n
--- NOTE | 2021-04-05 11:35 | SUR.PREOP ---
PATIENT NOTIFIED OF POSSIBLE DELAY TO SURGERY START.
[2021-04-05] MEDS: ACETAMINOPHEN 500 MG TABLET 1000 MG PO (11:36)
[2021-04-05] MEDS: KETOROLAC 15 MG/ML VIAL (*BKC) IV PUSH (11:38)
--- NOTE | 2021-04-05 11:57 | WPDANESEPPF ---
Anes - Initial Pre Proc Eval Procedure: Operation Date: 04/05/21 12:00 Proposed Procedures p Laparoscopic Cholecystectomy, Possible Open - Dano Hurtado DO Date/Time: 04/05/21 11:57 Surgeon: Dano Hurtado DO Pre Op Diagnosis: symptomatic cholelithiasis Patient Data Age: 45 Gender: F Height: 1.55 m Weight: 69.6 kg Last Vital Signs Temp 37.4 C 04/05/21 10:55 Pulse 75 04/05/21 10:55 Resp 14 04/05/21 10:55 BP 106/72 04/05/21 10:55 Pulse Ox 98 04/05/21 10:55 Allergies Allergy/AdvReac Type Severity Reaction Status Date / Time No Known Allergies Allergy Verified 04/05/21 11:54 Home Medications Medication Instructions Recorded Confirmed Type cyanocobalamin (vitamin B-12) 1,000 mcg PO QAM #30 tablet 01/01/21 04/01/21 Rx [Vitamin B-12] rimegepant 75 mg disintegrating 75 mg PO ONCE PRN 02/18/21 04/01/21 History tablet pregabalin 50 mg PO BID 04/01/21 04/01/21 History Patient hx anesthesia problems: none Family hx anesthesia problems: none Results Review: All pre-operative results and documents have been reviewed as part of the pre-operative evaluation. [facility] Past Medical History Medical History delivery delivered Migraine Family History Family History Mother Cerebrovascular accident Father Acute myocardial infarction Social History Social History Social History: occasional caffeine use Smoking packs per day: 0.5 Smoking cigarettes per day: 10.0 Years smoked: 20 Smoking pack-years: 10.00 Smoking status: Current every day smoker Tobacco type: cigarettes Alcohol intake: never Substance use: never Substance use type: does not use Living arrangements: with family Spiritual care concerns: No Anes - Eval Final PreProcedure Day of Procedure 04/05/21 11:57 Patient weight: overweight Heart: regular rate and rhythm Lungs: decreased breath sounds Airway: Mallampati scale class II Neurological: alert and oriented Last oral intake: >/= 8 hours ASA classification: III Emergent: no Anesthetic plan: proceed Anesthesia type and monitoring: general ETT and standard monitoring Results Review: All pre-operative results and documents have been reviewed as part of the pre-operative evaluation. Informed Consent: The patient's anesthetic plan and its attendant risks and benefits were discussed with the patient/family/POA. Questions were solicited and answers provided to the satisfaction of the patient/family/POA.
[2021-04-05] MEDS: ceFAZolin 2 GM/D5W 50 ML 2 GM/50 ML BAG IVPB (13:10)
[2021-04-05] MEDS: BUPIVACAINE/EPINEPHRINE 0.5% 10 ML VIAL 30 ML INFILTRATE (14:01)
--- NOTE | 2021-04-05 14:15 | W.PM.PROC2 ---
Procedure Note - Detailed Date of Procedure 04/05/21 Pre-op Diagnosis symptomatic cholelithiasis Post-op Diagnosis other (Gallbladder hydrops) Procedure Performed Laparoscopic Cholecystectomy Surgeon Dano Hurtado, DO Anesthesia general and local (0.5% bupivacaine) Indications This is a 45-year-old woman who presented with intermittent upper abdominal pain for the past year. She underwent a gallbladder ultrasound which showed evidence of cholelithiasis and a gallbladder polyp. Discussions were made with the patient about her treatment options and decision was made to proceed with laparoscopic cholecystectomy, possible open. Findings Laparoscopic cholecystectomy was performed. The gallbladder was somewhat tense and dilated. A laparoscopic aspirating needle was used to decompress the gallbladder and about 50 mL of clear mucus bile was aspirated. There were several stones within the gallbladder and 1 notably right near the neck of the gallbladder. The cystic duct appeared normal in size. No other abnormalities were noted. The gallbladder was removed and sent to the lab for pathology. Description of Procedure Procedure as well as risks, benefits, and alternatives were discussed with patient. Written consent was obtained and placed in chart prior to procedure. The patient was brought back to surgical suite. Patient was placed in supine position on operating table. Time-out was done to confirm patient and procedure. Patient was then intubated by the anesthesia department. Abdomen was prepped and draped in sterile fashion using chlorhexidine prep. 0.5% bupivacaine with epinephrine was infiltrated at each site of incision. A 5 millimeter incision was made near the umbilicus, and a 5 millimeter Optiview trocar was advanced through the abdominal layers under direct visualization. Once inside the abdominal cavity, carbon dioxide was insufflated to create a pneumoperitoneum. The camera was inserted and the abdomen was inspected. No immediate abnormalities were identified. The patient was placed in reverse Trendelenburg position and rotated slightly to the left. An 11 millimeter incision was made in the subxiphoid region, and an 11 millimeter trocar was inserted under direct visualization. Two 5 millimeter incisions were made in the right upper quadrant, and two 5 millimeter trocars were inserted under direct visualization. The gallbladder was identified and grasped at the fundus and retracted superiorly. It was then grasped at the infundibulum retracted laterally. Careful dissection around the neck of the gallbladder was performed using blunt dissection with a [place] grasper and hook electrocautery. The cystic duct was identified, and a window was created behind it. The cystic artery was also identified and a window was created behind it. The critical view of safety was identified, visualizing the cystic duct running directly into the neck of the gallbladder, and the cystic artery running directly into the wall of the gallbladder. A 5 millimeter clip crime lab analyst was then used to place 2 clips proximally and 1 clip distally on both the cystic duct and cystic artery. They were then both transected using endoscopic scissors. Once safely away from the lucho hepatitis, the gallbladder was dissected free from the liver bed using hook electrocautery. Hemostasis was achieved along the way. The gallbladder was removed completely and then removed through the subxiphoid port. The liver bed was then inspected. Hemostasis appeared adequate, and our clips appeared secure. The area was gently irrigated with sterile saline. No other abnormalities were seen. The patient was flattened out in bed, and 1 final inspection was made around the abdominal cavity. The subxiphoid port was removed, and a Aaron Padmini cone was used to approximate the fascia with an 0-Vicryl simple interrupted suture. The remaining ports were then removed under direct visualization, the camer
[2021-04-05] MEDS: fentaNYL CITRATE INJ (*CRX) 100 MCG/2 ML VIAL 25 MCG IV PUSH ×8 (14:39→15:14)
--- NOTE | 2021-04-05 15:20 | SUR.PHASEI ---
[id number]- Call to Dr. Walden patient having 8/10 pain to abdomen after 200MCG fentanyl IVP. Patient requesting additional pain medication. Per Dr. Walden place orders for Dilaudid 1MG IVP every 5 minutes up to 3MG total.
[2021-04-05] MEDS: ONDANSETRON INJ 4 MG/2 ML VIAL IV PUSH (15:21)
[2021-04-05] MEDS: HYDROmorphone HCL INJ (*CRX) 1 MG/ML SYR IV PUSH (15:22)
[2021-04-05] MEDS: oxyCODONE HCL (*CRX) 5 MG TAB IR PO (16:21)
[2021-04-05] MEDS: diphenhydrAMINE HCl INJ 50 MG/ML VIAL 25 MG IV PUSH (16:33)
[2021-04-05] MEDS: SCOPOLAMINE 1.5 MG PATCH TRANSDERM (16:35)
== END 2021-04-05 17:30 | disposition home or self-care (01) ==
PROVIDERS: PCP Emergency Medicine; Visit Provider Surgery
PROC: 0FT44ZZ Resection of Gallbladder, Percutaneous Endoscopic Approach (ICD-10-PCS; CPT 47562; principal; 2021-04-05 12:00)
DX: K80.10 Calculus of gallbladder with chronic cholecystitis without obstruction (principal); K82.1 Hydrops of gallbladder; R10.13 Epigastric pain; F17.210 Nicotine dependence, cigarettes, uncomplicated
CPT/HCPCS: 47562; 88304; A9270; J0690; J1100; J1170; J1200; J1885; J2250; J2405; J2704; J2710; J3010; J7030; J7120

== ENCOUNTER 2021-04-26 11:31 | Outpatient (CLI) | payer OTHER, SELFPAY ==
--- NOTE | ~2021-04-26 | XR_ITS ---
XR chest 2V DATE: 04/26/2021 12:08 INDICATION: Tobacco use 2 views TECHNIQUE: PA and lateral views COMPARISON: None FINDINGS: Normal heart size. No hilar or mediastinal enlargement. No pulmonary infiltrate or consolid ation. Possible 5 mm nodular density overlying the lateral right upper lung; CT thorax examination is recommended. No pleural effusion or pulmonary vascular congestion or pneumothorax. Surgical clips appear to overlie right upper quadrant, likely due to cholecystectomy. Included skeletal structures are unremarkable. IMPRESSION: 5 mm nodular density overlying the lateral right upper lung; CT thorax is recommended Reviewed, dictated and finalized at location B. H SUPERVISOR IMPRESSION: 5 mm nodular density overlying the lateral right upper lung; CT thorax is recom mended
--- NOTE | ~2021-04-26 | XR_ITS ---
EXAMINATION: XR cervical spine 4-5V EXAM DATE: 04/26/2021 12:08 INDICATION: Back Pain, Reduced Mobility X 5 Months, No Injury TECHNIQUE: Cervical spine frontal, lateral, lateral swimmers, and open-mouth odontoid projections. There is no prior study for comparison. FINDINGS: There is mild reversal of the normal cervical lordosis which may be positional or spasm. T here is mild to moderate disc disease at C5-6, mild at C4-5. Mild to moderate cervical arthropathy. T he odontoid process is intact. The lateral masses of C1 line up with C2. Prevertebral soft tissue an d pre-dens space are within normal limits. IMPRESSION: 1. Mild to moderate cervical spondylosis. 2. Mild reversal of cervical lordosis. Reviewed, dictated and finalized at location G. UNICATIONS OFFICER
--- NOTE | ~2021-04-26 | XR_ITS ---
EXAMINATION: XR thoracic spine 3V EXAM DATE: 04/26/2021 12:08 INDICATION: Back Pain, Reduced Mobility X 5 Months, No Injury TECHNIQUE: Frontal and lateral projections of the thoracic spine as well as lateral swimmers projecti on of the upper thoracic spine for interpretation. There is no prior study for comparison. FINDINGS: The vertebral bodies are aligned in the AP dimension. Vertebral body and disc heights are w ell-maintained. There are no acute fractures identified. Paraspinal soft tissue is unremarkable. Ther e are cholecystectomy clips. IMPRESSION: Unremarkable thoracic x-ray. Reviewed, dictated and finalized at location G. OR NETWORK SECURITY ARCHITECT
--- NOTE | ~2021-04-26 | XR_ITS ---
EXAMINATION: XR lumbar spine 2-3V EXAM DATE: 04/26/2021 12:08 INDICATION: Back pain, instability. TECHNIQUE: Lumber spine frontal, lateral, lateral L5-S1 projections for interpretation. There is no prior study for comparison. FINDINGS: There are cholecystectomy clips. There is mild upper lumbar, mild to moderate lower lumbar facet arthropathy. There are no bony erosions identified. Paraspinal soft tissue is unremarkable. Th ere are no acute fractures identified. IMPRESSION: Mild to moderate lower lumbar facet arthropathy. Reviewed, dictated and finalized at location G. 4 H YOUTH DEVELOPMENT SPECIALIST
== END 2021-04-26 11:32 | disposition home or self-care (01) ==
LOC: ANHIMG 11:36
PROVIDERS: PCP Emergency Medicine; Visit Provider Emergency Medicine
DX: M54.50 Low back pain, unspecified (principal); M12.88 Other specific arthropathies, not elsewhere classified, other specified site; M47.812 Spondylosis without myelopathy or radiculopathy, cervical region; M53.82 Other specified dorsopathies, cervical region; R91.8 Other nonspecific abnormal finding of lung field
CPT/HCPCS: 71046; 72050; 72072; 72100

== ENCOUNTER 2021-05-15 11:32 | Outpatient (CLI) | payer OTHER, SELFPAY ==
--- NOTE | ~2021-05-15 | CT_ITS ---
EXAMINATION: CT diagnostic chest wo con DATE: 05/15/2021 13:09 INDICATION: Lung nodule TECHNIQUE: Computed tomography (CT) of the chest was performed without intravenous contrast. The dose -length product (DLP) was 81.13 mGy-cm. Automated exposure control and iterative reconstruction techn ique were employed. COMPARISON: Chest radiograph, 04/26/2021 FINDINGS: There are multiple some solid right upper lobe nodules which measure up to 4 mm. None defin itely correlate with the chest radiographic finding. There is no pleural effusion or pneumothorax. No pathologically enlarged thoracic lymph nodes are identified. The heart size is normal. There is mild thoracic spondylosis. IMPRESSION: 1. Multiple right upper lobe nodules, likely infectious or inflammatory. Follow-up low-dose chest CT in 3-6 months is recommended. Reviewed, dictated and finalized at location B. DYNAMICS PROFESSOR IMPRESSION: 1. Multiple right upper lobe nodules, likely infectious or inflammatory. Follow -up low-dose chest CT in 3-6 months is recommended.
[2021-05-15 12:53] LABS: Iron 35 ug/dL (37-170)
[2021-05-15 13:03] LABS: Percent Iron Saturation 12 % (20-50)
== END 2021-05-15 11:33 | disposition home or self-care (01) ==
LOC: ANHIMG 11:33
PROVIDERS: PCP Emergency Medicine; Visit Provider Emergency Medicine
DX: R91.8 Other nonspecific abnormal finding of lung field (principal)
CPT/HCPCS: 36415; 71250; 83540; 83550

== ENCOUNTER 2021-05-31 12:30 | Outpatient (RCR) | payer OTHER, SELFPAY ==
--- NOTE | 2021-04-26 10:51 | PTOPEVAL ---
PHYSICAL THERAPY EVALUATION AND PLAN OF CARE 04-26-21 Thank you for referring Mary Gunderson to [facility], for the diagnosis of muscle weakness. Mary is scheduled to be seen for therapy? 1-2x/week for 5 weeks. The plan of care is for 1-2 x/wk due to her multiple testing and dr appointments, work schedule and relying on others for transportation. Please review, sign, date and return this plan of care DARCY. I agree with and certify that the following plan of care is medically necessary. Referring Physician Date Attending Provider: Arleen Rodriguez APRN-[facility] Past Medical History Past Medical History Source of Past Medical History Recalled from Previous Visit, Confirmed with Patient/Family Neurological History Hx Migraine Yes: meds, have migraines every couple days Cardiovascular History Hx Cardiac Disorders No Significant History Respiratory History Hx COVID-19 Yes: MAR 2021 - H/A, BODY ACHES- ill for 2 days Hx Sleep Apnea Yes: to have test next week Gastrointestinal History Hx Cholecystectomy Yes: Mar 2021; no restrictions /limitations- Hx Gall Bladder Disease Yes Genitourinary History Hx Genitourinary Disorders No Significant History Musculoskeletal History Hx Back Pain Yes Hx Fractures Yes: R CHEEK Hx Orthopedic Surgery Yes: R CHEEK Hematological History Hx Hematological Disorders No Significant History Endocrine History Hx Endocrine Disorders No Significant History HEENT History Hx HEENT Disorders No Significant History Integumentary History Hx Skin Disorders No Significant History Reproductive History Hx Section Yes: X1 Diagnosis muscle weakness Onset Dec 2020 Additional Evaluation Detail pt PT order is dated January 2021--pt reports dr told her to wait until after gall bladder surgery to start PT; Subjective Information saw neurologiast ? small fiber Query Text:As Reported By Patient/ neuropathy-test June 03 to Family determine what it is; in December- sudden onset of weakness; no falls, but have had loss of balance; to have back and chest x ray, from orders of general dr; MRI of back next week- to be done at [facility], by orders of neurologist; pt and Jeevan voiced frustration about her situation and not a
--- NOTE | 2021-05-29 12:31 | PCPTNOTE ---
Patient called & cancelled scheduled appointment this date due to have MD appointment.
--- NOTE | 2021-05-31 13:25 | PTOPEVAL ---
PHYSICAL THERAPY RE-EVALUATION 05-31-21 Refer to the clinical summary below, for her status today, compared to the initial evaluation. Mary continues to have high pain rating and limited mobility, with neurological type movements of her legs. She has upcoming appointments for neurological dr, back dr and EMG testing. PLAN: she is to continue with her home exercise program for strengthening, use the wheeled walker for walking. Will hold PT for now, she will discuss therapy with her doctors, get results of the appointments, and determine if PT is to continue or not. If PT is to continue, she will need a new PT order for continued treatment. Thank you for referring Mary Gunderson to [facility]. Please review, sign, date and return this updated plan of care DARCY. I agree with and certify that the following plan of care is medically necessary. Referring Physician Date Attending Provider: Arleen Rodriguez APRN-YARN SPOOLER CC: Saleem Mckeon MD-- per pt request, her general physician Subjective Information Mary and her report: Query Text:As Reported By Patient/ have not had any falls; saw Family neuro dr earlier this week--to have EMG next week and see back in June; saw lung dr --had more blood work, with repeat CT scan on lung in Nov -due to R nodules there; on iron pills, continue to have headaches every day- all day long; when it gets worse, vision starts to go, take meds have not gone down into the basement- steep steps; activity about 5 min then have to rest Pain Assessment Pain Scale Used Numeric (1 - 10) Self Report Pain Assessment Bilateral Back Reported Pain Level 7 Pain Description Aching,Sharp Radicular Pain Location have headaches daily, last all day, vary in intensity Pain Frequency Chronic,Continuous Other Pain Description feels like a headache over my whole body painful Lowest Pain Intensity 5 Greatest Pain Intensity 10 Pain Aggravating Factors Exercise/Activity Pain Score Pain Score 7: Self Report Additional Pain Score Comments heat pad does not help pain; awaken from sleep due to pain about 2 x/night; Interventions Used Interventions Used By Clinicians Education,Exercise Pain Relief Interventions Used By Inactivity/Rest,Medication Patient Other Alleviating Interventions have script med for headache; over the counter meds not
--- NOTE | 2021-05-31 15:51 | PCPTNOTE ---
reeval performed today; pt to see dr, and have further testing done; await further orders if PT is to continue;
--- NOTE | 2021-07-04 14:26 | PCPTNOTE ---
PHYSICAL THERAPY DISCHARGE 07-04-21 Attending Provider: MANNY Tejada Patient:Mary Gunderson Date of :1975 Mary has not returned for any further treatments since the reevaluation on 05/31/2021, therefore she will be discharged at this time. I called her today and she stated she has an appointment with a neurosurgeon in next few weeks. She stated her walking and mobility were about the same. Discussed with her that she will need a new dr order if PT is to continue. Thank you for referring Mrs. Gunderson to [facility]. Please review, sign, date and return this discharge summary DARCY. I have been updated about the patient's current status and I agree with discharge from the above service at this time. Referring Physician Date
== END 2021-07-05 12:54 | disposition home or self-care (01) ==
LOC: ANHPT 12:30
PROVIDERS: PCP Emergency Medicine
DX: M62.81 Muscle weakness (generalized) (principal)
CPT/HCPCS: 97014; 97110; 97112; 97116; 97140; 97162; G0283

== ENCOUNTER 2021-06-05 10:50 | Outpatient (CLI) | payer OTHER, SELFPAY ==
[2021-06-05 12:55] LABS: Vitamin D 25 Hydroxy 31.2 ng/mL
[2021-06-08 11:59] LABS: NIL 0.05 IU/mL; Quantiferon TB Plus, 1T NEGATIVE (NEGATIVE); TB1-NIL 0.02 IU/mL; TB2-NIL 0.02 IU/mL
[2021-06-08 23:49] LABS: Legionella pneumophila Ag Ur Not Detected (Not Detected)
[2021-06-09 04:58] LABS: Angiotensin Converting Enzyme 23 U/L (9-67)
[2021-06-10 10:03] LABS: Blastomyces Antibody Negative
[2021-06-13 19:52] LABS: Coccidioides Ab to F Ag (IgG) NEGATIVE; Coccidioides Ab to TP Ag (IgM) NEGATIVE
== END 2021-06-05 10:51 | disposition home or self-care (01) ==
PROVIDERS: PCP Emergency Medicine; Referring Provider Nurse Practitioner; Visit Provider Advanced Practice Midwife
DX: R53.83 Other fatigue (principal); R91.8 Other nonspecific abnormal finding of lung field
CPT/HCPCS: 36415; 82164; 82306; 82607; 86038; 86331; 86480; 86606; 86609; 86612; 86635; 86698; 87449

== ENCOUNTER 2021-06-19 13:27 | Outpatient (CLI) | payer OTHER, SELFPAY ==
--- NOTE | ~2021-06-19 | MR_ITS ---
EXAMINATION: MR lumbar spine wo con DATE: 06/19/2021 14:17 INDICATION: Chronic bilateral low back pain. TECHNIQUE: Magnetic resonance imaging (MRI) of the lumbar spine was performed without intravenous con trast. Sequences included sagittal T2-weighted FSE, sagittal T2-weighted FS FSE, sagittal T1-weighted FSE, and axial T2-weighted FSE. COMPARISON: None FINDINGS: There is 4 degrees levocurvature of lumbar spine. Vertebral body heights are normal. There is mildly decreased disc height at L4-L5. The distal spinal cord signal intensity is normal. The conu s medullaris is at L1. The following disc levels are specifically discussed: L1-L2: The disc does not extend beyond the endplate margin. There is mild bilateral facet joint osteo arthritis. There is no neural foraminal stenosis. There is no central canal stenosis. L2-L3: The disc does not extend beyond the endplate margin. There is no facet joint osteoarthritis. T here is no neural foraminal stenosis. There is no central canal stenosis. L3-L4: The disc does not extend beyond the endplate margin. There is mild bilateral facet joint osteo arthritis. There is no neural foraminal stenosis. There is no central canal stenosis. L4-L5: The disc is bulging and has an annular fissure. There is severe bilateral facet joint osteoart hritis. There is mild bilateral neural foraminal stenosis. There is mild central canal stenosis. L5-S1: The disc is bulging. There is severe bilateral facet joint osteoarthritis. There is mild bilat eral neural foraminal stenosis. There is mild central canal stenosis. IMPRESSION: 1. Mild lumbar spondylosis. Reviewed, dictated and finalized at location A. IMPRESSION: 1. Mild lumbar spondylosis.
== END 2021-06-19 13:28 | disposition home or self-care (01) ==
PROVIDERS: PCP Emergency Medicine
DX: M54.50 Low back pain, unspecified (principal); G89.29 Other chronic pain; R26.0 Ataxic gait; R29.898 Other symptoms and signs involving the musculoskeletal system; M47.816 Spondylosis without myelopathy or radiculopathy, lumbar region
CPT/HCPCS: 72148

== ENCOUNTER 2021-06-28 14:51 | Outpatient (CLI) | payer OTHER, SELFPAY ==
--- NOTE | ~2021-06-28 | US_ITS ---
EXAMINATION: US art doppler w press LE BI DATE: 06/28/2021 15:55 INDICATION: Bilateral lower limb weakness TECHNIQUE: Segmental pressures and plethysmographic and Doppler waveforms of the brachial and lower e xtremity arteries were obtained. COMPARISON: None. FINDINGS: Right and left brachial artery pressures of 113 mm Hg and 95 mm Hg, respectively, are concordant (nor mal difference <= 30 mmHg). The right and left high-thigh pressure indices are 1.14 and 1.22, respect ively (normal > 1.2). The right ankle-brachial index (GARRETT) is 1.12 (normal >= 0.9-1). The right great toe-brachial index (T BI) is 0.78 (normal >= 0.6-0.8). The right lower extremity segmental pressure gradients are normal (n ormal gradients <= 20-30 mmHg between adjacent levels on the same leg or the same levels on the two l egs). Arterial waveforms are triphasic at the right superficial femoral artery and biphasic in the re maining arteries of the right lower limb with brisk systolic upstrokes throughout. The left GARRETT is 1.11. The left TBI is 0.74. The left lower extremity segmental pressure gradients are normal. Arterial waveforms are triphasic at the left common femoral, superficial femoral and posteri or tibial arteries and biphasic at the left popliteal and dorsalis pedis arteries with brisk systolic upstrokes throughout. IMPRESSION: 1. Normal GARRETT's and TBI's bilaterally. No significant occlusive disease. Reviewed, dictated and finalized at location A.
== END 2021-06-28 14:52 | disposition home or self-care (01) ==
LOC: ANHIMG 14:54
PROVIDERS: PCP Emergency Medicine; Visit Provider Emergency Medicine
DX: R53.1 Weakness (principal)
CPT/HCPCS: 93923

== ENCOUNTER 2022-02-06 10:00 | Outpatient (RCR) | payer OTHER, SELFPAY ==
--- NOTE | 2022-01-10 11:56 | PTOPEVAL1 ---
Assessment and note entered by Coty Larson DPT Evaluation Information Assessment Status Evaluation Reported Pain Level Pain Score 7: Self Report Additional Pain Score Comments Pt reports her MD wants her to try aquatic PT now. Has been using a walker for about 6-7 months. States she is shaky with any kind of movement. Had a migraine last December which started her issues. Has pain everywhere but her legs and back are worse than her arms. Also has neck pain. Describes as a squeezing. Highest pain recently 10/10 and lowest 7/10. Wants to be able to walk better and without the walker at home. Pt requires assistance for most activities at home and work. Assessment PT Clinical Summary The patient is presenting to skilled therapy with a diagnosis of cervical myelopathy, extensive pain and difficulty with gait. She is currently ambulating with a walker and demonstrates overall decreased balance, strength, and endurance. She will benefit from skilled therapy to address these impairments and improve safety and functional mobility. Plan of Care Interventions Aquatic Therapy,Electrical Stimulation,Gait Training,Hot Pack/Cold Pack,Manual Therapy,Neuro Re-education,Patient/Caregiver Education,Therapeutic Activities,Therapeutic Exercise,Self-Care/Home Management,Ultrasound PT Services Indicated Yes Treatment Frequency and 1-2 times a week for 4 weeks Duration These treatments will address the objective and functional deficits as defined above. The patient will be advanced safely and appropriately in order for the patient to progress towards his/her prior level of function. Additional exercises will be introduced and as well as a comprehensive home exercise program upon discharge, if needed, ?to ensure carryover of functional gains achieved in the clinic. This treatment plan has been reviewed and agreement upon by the patient.
--- NOTE | 2022-02-06 10:35 | PTOPDC ---
Assessment and note entered by Coty Larson DPT Evaluation Information Assessment Status Discharge Subjective Information Pt reports feeling about the same with therapy. Has an appointment with a [facility] MD in several months . Sees her primary in March. Highest pain 10/10 and lowest 8/10 recently. Reports no changes with activities at home Reported Pain Level Pain Score 8: Self Report Assessment PT Clinical Summary The patient has reached a plateau in therapy at this time. She reports no improvements in her pain or function at home. She demonstrates mild strength improvements but worse time with 2 minute walk test and 5 time sit to stand. She will be discharged this visit with education to follow up with PT or MD as needed. Plan of Care PT Services Indicated No
== END 2022-02-06 10:51 | disposition home or self-care (01) ==
LOC: ANHPT 10:00
PROVIDERS: PCP Emergency Medicine
DX: G95.9 Disease of spinal cord, unspecified (principal)
CPT/HCPCS: 97014; 97110; 97113; 97163; 97530; G0283

== ENCOUNTER 2022-02-18 10:14 | Outpatient (CLI) | payer OTHER, SELFPAY ==
--- NOTE | ~2022-02-18 | CT_ITS ---
EXAMINATION:CT diagnostic chest wo con DATE: 02/18/2022 10:40 INDICATION: Multiple nodules of lung. TECHNIQUE: Computed tomography (CT) of the chest was performed without intravenous contrast. Automate d exposure control and iterative reconstruction technique were employed. The dose-length product (DLP ) was 81.42 mGy-cm. COMPARISON: Chest CT 05/15/2021 FINDINGS: There are chronic mild groundglass opacities in the right upper lobe and bilateral lower lo bes associated with peripheral septal thickening. There is chronic discoid atelectasis in right upper lobe and right lower lobe. The small right upper lobe nodules have resolved. No bronchiectasis or ho neycombing. There is subsegmental air trapping in right lower lobe. No pleural effusion. The heart si ze is normal. No pericardial effusion. There are changes of cholecystectomy. There are no pathologica lly enlarged lymph nodes. There is mild thoracic spondylosis. IMPRESSION: 1. Interval resolution of small right upper lobe nodules. 2. Mild chronic interstitial lung disease in a pattern of nonspecific interstitial pneumonia (NSIP) o r chronic hypersensitivity pneumonitis. Reviewed, dictated and finalized at location A. OPEDIC DENTIST IMPRESSION: 1. Interval resolution of small right upper lobe nodules. 2. Mild chronic interstitial lung disease in a pattern of nonspecific interstit ial pneumonia (NSIP) or chronic hypersensitivity pneumonitis.
== END 2022-02-18 10:15 | disposition home or self-care (01) ==
PROVIDERS: PCP Emergency Medicine; Visit Provider Nurse Practitioner
DX: R91.8 Other nonspecific abnormal finding of lung field (principal); J84.9 Interstitial pulmonary disease, unspecified
CPT/HCPCS: 71250

== ENCOUNTER 2022-03-13 13:01 | Outpatient (CLI) | payer OTHER, SELFPAY ==
--- NOTE | 2022-03-13 15:00 | WPDPFTINT ---
PFT Procedure Performed PFT Procedure Performed Spirometry with Pre/Post Bronchodilator Plethysmography (Lung Vol) Diffusing Cap (DLCO) Flow Vol Loop PFT Interpretation Lung volumes were measured with the body plethysmography method. Lung volumes are unremarkable. Spirometry showed normal expiratory flow rates and a normal FEV1 to FVC ratio 78%. Following administration of a bronchodilator there was no significant increase in expiratory flow rates. Lung diffusion capacity is moderately reduced at 57% predicted. Impression: Spirometry and lung volumes within normal range. Moderately reduced lung diffusion capacity.
== END 2022-03-13 13:02 | disposition home or self-care (01) ==
LOC: ANHPFT 13:02
PROVIDERS: PCP Emergency Medicine; Visit Provider Nurse Practitioner
DX: R06.09 Other forms of dyspnea (principal)
CPT/HCPCS: 94060; 94726; 94729

== ENCOUNTER 2022-05-14 11:06 | Outpatient (CLI) | payer OTHER, SELFPAY ==
--- NOTE | 2022-05-14 | ECG_ITS ---
Measurements Intervals [place] Rate: 66 P: -25 MO: 142 QRS: -1 QRSD: 98 T: 20 QT: 386 QTc: 405 Interpretive Statements SINUS RHYTHM INCOMPLETE RIGHT BUNDLE BRANCH BLOCK BORDERLINE ECG NO PREVIOUS ECG AVAILABLE FOR COMPARISON Electronically Signed On 05-14-2022 11:46:42 [address] [facility] by Fabián Bahena D.O.
== END 2022-05-14 11:07 | disposition home or self-care (01) ==
LOC: ANHCARD 11:09
PROVIDERS: PCP Family Medicine; Visit Provider Nurse Practitioner
DX: R00.8 Other abnormalities of heart beat (principal); I45.10 Unspecified right bundle-branch block
CPT/HCPCS: 93005

== ENCOUNTER 2022-07-07 11:19 | Outpatient (CLI) | payer OTHER, SELFPAY ==
--- NOTE | ~2022-07-07 | CT_ITS ---
EXAMINATION:CT diagnostic chest wo con DATE: 07/07/2022 11:39 INDICATION: Interstitial lung disease. TECHNIQUE: Computed tomography (CT) of the chest was performed without intravenous contrast. Automate d exposure control and iterative reconstruction technique were employed. The dose-length product (DLP ) was 176.75 mGy-cm. COMPARISON: Chest CT 02/18/2022 FINDINGS: There are chronic groundglass opacities and septal thickening involving apical and posterio r segments of right upper lobe with volume loss. There are chronic posterior groundglass opacities an d septal thickening in the lungs bilaterally. No bronchiectasis or honeycombing. No pleural effusion. The heart size is normal. No pericardial effusion. There are changes of cholecystectomy. There is mi ld thoracic spondylosis. IMPRESSION: 1. Worsened mild chronic interstitial lung disease in a pattern of nonspecific interstitial pneumonia (NSIP) or chronic hypersensitivity pneumonitis. Reviewed, dictated and finalized at location A.
== END 2022-07-07 11:20 | disposition home or self-care (01) ==
PROVIDERS: PCP Family Medicine; Visit Provider Nurse Practitioner
DX: J84.9 Interstitial pulmonary disease, unspecified (principal)
CPT/HCPCS: 71250

== ENCOUNTER 2022-09-23 12:45 | Outpatient (CLI) | payer OTHER, SELFPAY ==
--- NOTE | 2022-09-23 | ECHO_ITS ---
Patient Info Name: Mary Gunderson Age: 47 years : 1975 Gender: Female Ht: 61 in Wt: 160 lbs BSA: 1.79 m2 HR: 76 bpm BP: 129 / 78 mmHg Heart Rhythm: Sinus Rhythm Technical Quality: Good Exam Date: 09/23/2022 1:17 PM Exam Location: [facility] Patient Status: Outpatient Admit Date: 09/23/2022 Staff Ordering Physician: Nerissa, Lucia WORTHY Bin Worker: Stevan Morgan RDCS Attending Provider: Nerissa, Lucia WORTHY Exam Type: CA 2-Dimentional, M-Mode and Doppler Echocardiogram Study Info Indications - palpatation Complete two-dimensional, color flow and Doppler transthoracic echocardiogram is performed. Summary 1. Complete two-dimensional, color flow and Doppler transthoracic echocardiogram is performed. 2. Left ventricular chamber dimension is normal. 3. Left ventricular systolic function is normal, estimated at 55-60%. 4. There is no increased left ventricular wall thickness. 5. The left ventricular diastolic function is normal. 6. There is mild mitral valve regurgitation. 7. There is mild tricuspid valve regurgitation. 8. There is mild pulmonic regurgitation. Left Ventricle Left ventricular chamber dimension is normal. Left ventricular systolic function is normal, estimated at 55-60%. There is no increased left ventricular wall thickness. The left ventricular diastolic function is normal. Right Ventricle Right ventricular chamber dimension is normal. Right ventricular systolic function is normal. Left Atria Left atrial chamber dimension is normal. Right Atria Right atrial chamber dimension is normal. Atrial Septum Suspected patent foramen ovale visualized by color flow imaging. Aortic Valve The aortic valve is trileaflet. There is no aortic valve sclerosis. There is no aortic valve stenosis. There is trace aortic valve regurgitation. Pulmonic Valve The pulmonic valve is normal. There is no pulmonic valve stenosis. There is mild pulmonic regurgitation. Mitral Valve The mitral valve has normal leaflets. There is no mitral valve stenosis. There is mild mitral valve regurgitation. Tricuspid Valve The tricuspid valve leaflets are normal. There is no significant tricuspid valve stenosis. There is mild tricuspid valve regurgitation. No pulmonary hypertension, estimated pulmonary arterial systolic pressure is 12 mmHg. Pericardium/Pleural The pericardium appears normal. There is no pericardial effusion. Inferior Vena Cava Normal inferior vena cava with >50% collapse upon inspiration consistent with normal right atrial pressure, 10 mmHg. Aorta The aortic root size at the sinus of Valsalva is normal. Left Ventricular Outflow Tract Name Value Normal LVOT 2D LVOT Diameter 1.8 cm LVOT Doppler LVOT Peak Gradient 4 mmHg LVOT Mean Gradient 2 mmHg LVOT VTI 23 cm LVOT VTI/AV VTI Ratio 1.1 LVOT Stroke Volume 61 ml LVOT CO 3.6 l/min LVOT CI
== END 2022-09-23 12:46 | disposition home or self-care (01) ==
PROVIDERS: PCP Family Medicine; Visit Provider Nurse Practitioner
DX: R00.2 Palpitations (principal); I34.0 Nonrheumatic mitral (valve) insufficiency; I07.1 Rheumatic tricuspid insufficiency; I37.1 Nonrheumatic pulmonary valve insufficiency
CPT/HCPCS: 93306

== ENCOUNTER 2024-06-10 11:58 | Outpatient (CLI) | payer OTHER, SELFPAY ==
--- NOTE | ~2024-06-10 | US_ITS ---
EXAMINATION: US venous doppler UE RT DATE: 06/10/2024 12:47 INDICATION: Right arm upper limb and swelling TECHNIQUE: Grayscale images without and with compression and Doppler images of the bilateral upper ex tremity veins were obtained. COMPARISON: None. FINDINGS: The right internal jugular vein, subclavian vein, axillary vein, brachial vein, basilic vein, cephali c vein, radial vein, and ulnar vein are patent. IMPRESSION: 1. Patent right upper extremity veins. No evidence of venous thrombosis. Reviewed, dictated and finalized at location A.
--- NOTE | ~2024-06-10 | XR_ITS ---
Lumbosacral Spine: AP and lateral views Clinical History: Pain Findings: The normal lordotic curve is maintained. The vertebral bodies and posterior elements are i ntact. The intervertebral disc spaces are preserved. There is moderate to advanced facet arthropathy at L4-L5 and L5-S1. The sacroiliac joints are normally outlined. Impression: Facet arthropathy, as above. Reviewed, dictated and finalized at location . Impression: Facet arthropathy, as above.
--- OUTSIDE RECORDS SUMMARY | 2024-06-10 12:04 | XMS_ITS | Encounter Summary ---
Author Organization [facility] Healthcare Address [address] [place] [address] Care Team Providers Care Spoilage Worker Name Role Phone Magdalena Walden Primary Care Provider [phone] Reason for Visit * Reason Onset Date Comments Paperwork from Public Aide 06/07/2024 Encounter Details Date Type Department Care Team (Late st Contact Info) Description 06/07/2024 Telephone [facility] Pulmonary at [address] [place] [address] Lizbet Kimbrough LPN Paperwork from [facility] Social History Tobacco Use Types Packs/Day Years Used Date Smoking Tobacco: Every Day Cigarettes 0.5 20.4 Started: 12/29/2003 Smokeless Tobacco: Never AUDIT-C Answer Date Recorded Q1: How often do you have a drink containing alc ohol? 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 There is more than she expected and questions like when she was first seen (I need to gather stuff from [facility]) I assured her that Lucia is working on it * Telephone Encounter - Lucia Multani NP - 06/08/2024 3:31 PM CDT I am about half way through. There is more than I expected and questions like when she was first seen (I need to gather stuff from [facility]) please assure her that I'm working on it Thanks * Telephone Encounter - Lizbet Kimbrough LPN - 06/07/2024 10:52 AM CDT Pt called wondering if Lucia Multani DIRECTOR OF PROFESSIONAL SERVICES had her paperwork done. I will check with Lucia and let her know when it is done. documented in this encounter Plan of Treatment Not on file documented as of this encounter Visit Diagnoses Not on filedocumented in this encounter Care Teams Spoilage Worker Relationship Specialty Start Date End Date Magdalena Walden PA [address] [place] [address] PCP - General 05/19/22 documented as of this encounter
--- OUTSIDE RECORDS SUMMARY | 2024-06-10 12:04 | XMS_ITS | Clinical Summary ---
Author Organization [facility] Address [address] [place] [id number] Phone Care Team Providers Care Senior Engineering Technician Name Role Phone Carlos Shah MD Primary Care Provider [phone] Allergies No known active allergies Medications VIT/FE FUMARATE/FA (REZA ORAL) Take 1 Tab by mouth daily. Active ondansetron (ZOFRAN ODT) 4 mg Tablet, Rapid Dissolve Take 1 Tablet (4 mg) by mouth every 6 hours as needed for Nausea/Emesis Dissolve tablet on top of tongue, then swallow with saliva.. 30 Tablet 03/06/2018 Active Active Problems Problem Noted Date Diagnosed Date Right sided abdominal pain 03/05/2018 , incidental Abdominal pain, acute, right lower quadrant Family History Medical History Relation Name Comments Healthy Brother Healthy Daughter Healthy Father Healthy Maternal Grandfather Healthy Maternal Grandmother Healthy Mother Healthy Other Healthy Paternal Grandfather Healthy Paternal Grandmother Healthy Sister Healthy Son Relation Name Status Comments Brother Daughter Father Maternal Grandfather Maternal Grandmother Mother Other Paternal Grandfather Paternal Grandmother Sister Son Social History Tobacco Use Types Packs/Day Years Used Date Smoking Tobacco: Every Day Alcohol Use Standard Drinks/Week Comments No 0 (1 standard drink = 0.6 oz pur e alcohol) Comments No Sex and Gender Information Value Date Recorded Sex Assigned at Not on file Legal Sex Female 6:03 AM ORDER ENTRY CLERK Gender Identity Not on file Sexual Orientation Not on file Last Filed Vital Signs Vital Sign Reading Time Taken Comments Blood Pressure 113/64 03/06/2018 9:32 AM ORDER ENTRY CLERK Pulse 80 03/05/2018 4:15 PM ORDER ENTRY CLERK Temperature 36.9 C (98.5 F) 03/06/2018 9:32 AM ORDER ENTRY CLERK Respiratory Rate 17 03/06/2018 9:32 AM ORDER ENTRY CLERK Oxygen Saturation - - Inhaled Oxygen Concentration - - Weight 68 kg (150 lb) 03/05/2018 4:15 PM ORDER ENTRY CLERK Height 152.4 cm (5') 03/05/2018 4:15 PM ORDER ENTRY CLERK Body Mass Index 29.29 03/05/2018 4:15 PM ORDER ENTRY CLERK Plan of Treatment Health Maintenance Due Date Last Done Comments DTAP/TDAP/TD VACCINES (1 - Tdap) 1996 HEPATITIS B VACCINES (1 of 3 - 19+ 3-dose series) 1996 HPV/Cotest (21-29) 1998 PAP SMEAR 1998 CERVICAL CANCER SCREENING 07/04/2007 HPV/Cotest (30-65) 07/04/2007 PAP SMEAR 07/04/2007 BREAST CANCER SCREENING 2017 COLORECTAL SCREENING 2022 Colorectal Cancer Screening 2022 FIT-DNA Q 3 years 2022 FIT/FOBT Q 1 year 2022 Flex Sig/CT Colonography Q 5 years 2022 INFLUENZA VACCINE (#1) 2023 HPV VACCINES Aged Out No longer eligi ble based on patient's age to complete this topic Insurance Advance Directives For more information, please contact: [phone] * Full Code (Latest Code Status on File) Date Activated Date Inactivated Comments 03/05/2018 3:46 PM 03/06/2018 2:55 PM Care Teams Senior Engineering Technician Relationship Specialty Start Date End Date Carlos Shah MD [address] [place] [id number] PCP - General Family Practice 10/18/10
--- OUTSIDE RECORDS SUMMARY | 2024-06-10 12:04 | XMS_ITS | Clinical Summary ---
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 Gender Identity Not on file Sexual Orientation Not on file Plan of Treatment Health Maintenance Due Date Last Done Comments Hepatitis C Virus (HCV) Screening 1975 Hepatitis B Immunization (1 of 3 - 19+ 3-dose series) 1996 Pap Smear 1998 Cervical Cancer Screening (CCS) 07/04/2007 HPV/Cotest 07/04/2007 Discussion re Starting/Frequency of Mammograms 2017 Colonoscopy 2022 Colorectal Cancer Screening 2022 Influenza Immunization (#1) 2023 SARS-COV-2 Immunization ( season) 2023 Respiratory Syncytial Virus (RSV) Immunization (Adult) (1 - 1-dose 75+ series) 2052 DTaP/Tdap/Td Immunization Discontinued 2018, 04/29/2016 TdaP Immunization Completed 08/16/2018, 04/29/2016 Meningococcal Immunization (ACWY) Aged Out No longer eligible based on patient's age to complete this topic Pneumococcal Immunization Combined Aged Out No longer eligible based on patient's age to complete this topic Rotavirus Immunization Aged Out No lo nger eligible based on patient's age to complete this topic
--- OUTSIDE RECORDS SUMMARY | 2024-06-10 12:04 | XMS_ITS | Referral Summary ---
Author Organization [facility] Address [address] [place] [address] Phone Care Team Providers Care Tongsman Name Role Phone Magdalena Walden Primary Care Provider [phone] Encounters Date Type Department Care Team Description 06/07/2024 Telephone [facility] Pulmonary at [address] [place] [phone] Lizbet Kimbrough LPN Paperwork from Public [employer] 06/01/2024 11:00 AM CDT Office Visit [facility] Pulmonary at [address] [place] [phone] Lucia Multani NP Centrilobular emphysema (HCC) (Primary Dx); Vitamin D deficiency; Iron deficiency; Cigarette nicotine dependence without complication 04/25/2024 11:00 AM LIFE SKILLS CONSULTANT Office Visit [facility] Pulmonary at [address] [place] [address] Lucia Multani NP Centrilobular emphysema (HCC) (Primary Dx); Cigarette nicotine dependence without complication 04/13/2024 5:00 PM LIFE SKILLS CONSULTANT - 04/13/2024 11:59 PM LIFE SKILLS CONSULTANT Hospital Encounter [facility] [address] [place] [address] Interstitial lung disease (HCC) Discharge Disposition: Discharge to home or self care 03/24/2024 Telephone [facility] Pulmonary at [address] [place] [address] Villatoro, Yun J., MA testing prior to appointment from Last 3 Months Allergies No known active allergies Medications gabapentin (NEURONTIN) 100 mg capsule Take 100 mg by mouth 3 (three) times a day 01/29/2021 Active HYDROcodone-acet aminophen (NORCO) 5-325 mg per tablet Take 1 tablet by mouth every 4 (four) hours as needed for pain 04/09/2021 Active cyanocobalamin (Vitamin B-12) 1,000 mcg tablet Take 1 tablet (1,000 mcg total) by mouth daily Active FeroSuL 325 mg (65 mg iron) tablet Take 1 tablet by mouth daily 05/16/2021 Active rimegepant (Nurtec ODT) tablet,disintegr ating Take 1 tablet (75 mg total) by mouth daily as needed 01/29/2021 Active pregabalin (LYRICA) 50 mg capsule Take 50 mg by mouth 2 (two) times a day 03/22/2021 Active topiramate (TOPAMAX) 25 mg tablet Take 25 mg by mouth 2 (two) times a day 05/29/2021 Active albuterol HFA (PROVENTIL HFA,VENTOLIN HFA,PROAIR HFA) 90 mcg/actuation inhaler 2 puffs every 4 (four) hours as needed Active umeclidinium-verito anteroL (Anoro Ellipta) 62.5-25 mcg/actuation blister with deviceIndication s:Centrilobular emphysema (HCC) Inhale 1 puff daily 1 each 11 04/25/2024 Active Active Problems Problem Noted Date Diagnosed Date Vitamin D deficiency 06/02/2024 Assessment & Plan (06/02/2024 12:13 PM CDT): Likely a contributor to her fatigue Check levels today Iron deficiency 06/02/2024 Assessment & Plan (06/02/2024 12:13 PM CDT): She is no longer taking an additional Fe supplement Check Iron panel Interstitial lung disease 06/02/2024 Chronic obstructive pulmonary disease, unspecifi ed 04/25/2024 Assessment & Plan (06/02/2024 12:09 PM CDT): Emphysematous changes via CT chest Pulmonary function testing demonstrated air trapping and hyperinflation Continue Anoro Ellipta 1 puff daily I will check labs today Albuterol as needed only, we have discussed indications for use however this was not overly helpful to her in the past Need alpha1 buccal swab We have discussed signs and symptoms that would require earlier evaluation or change to her plan of care Assessment & Plan (04/25/2024 2:30 PM LIFE SKILLS CONSULTANT): Emphysematous changes via CT chest Pulmonary function testing demonstrated air trapping and hyperinflation I will trial her on Anoro Ellipta 1 puff daily We have discussed daily use and technique Albuterol as needed only, we have discussed indications for use however this was not overly helpful in the past We have discussed signs and symptoms that would require earlier evaluation or change to her plan of care Cigarette nicotine dependence without complicati on 04/25/2024 Assessment & Plan (06/02/2024 12:12 PM CDT): - Smoking cessation counseling and techniques reviewed at length - Avoid triggers and use distraction techniques - Information given regarding [place] [employer] Quit line: 7-049-NWBV-YES for free services - 5 minutes spent discussing cessation She is currently pre contemplative about quitting and I have strongly encouraged her to call the quit line for free NRT She does not qualify for annual lung cancer screening, her last CT chest was 04/2024 Assessment & Plan (04/25/2024 2:29 PM LIFE SKILLS CONSULTANT): - Smoking cessation counseling and techniques reviewed at length - Avoid triggers and use distraction techniques - Participate in support groups - Information given regarding [place] [employer] Quit line: 7-115-CDHS-YES for free services - 5 minutes spent discussing cessation She was currently pre contemplative about quitting She does not qualify for annual lung cancer screening Fibromyalgia 07/23/2022 Migraines 07/23/[address] of the chest Resolved Problems Problem Noted Date Diagnosed Date Resolved Date Current smoker 07/23/2022 04/25/2024 Social History Tobacco Use Types Packs/Day Years Used Date Smoking Tobacco: Every Day Cigarettes 0.5 20.4 Started: 12/29/2003 Smokeless Tobacco: Never Tobacco Cessation:Ready to Q uit: Not Asked; Counseling Given: Not Answered AUDIT-C Answer Date Recorded Q1: How often do you have a drink containing alc ohol? Never 04/25/2024 Average Number of Drinks Not on file 025 Frequency of Binge Drinking Not on file 04/09 Comments Unknown Sex and Gender Information Value Date Recorded Sex Assigned at Not on file Legal Sex Female 6:14 PM LIFE SKILLS CONSULTANT Gender Identity Not on file Sexual Orientation Not on file Last Filed Vital Signs Vital Sign Reading Time Taken Comments Blood Pressure 110/60 06/01/2024 10:39 AM CDT Pulse 69 06/01/2024 10:39 AM CDT Temperature 36.3 C (97.3 F) 06/01/2024 10:39 AM CDT Respiratory Rate 16 06/01/2024 10:39 AM CDT Oxygen Saturation 98% 06/01/2024 10:39 AM CDT Inhaled Oxygen Concentration - - Weight 73.1 kg (161 lb 3.2 oz) 06/01/2024 10:39 AM CDT Height 152.4 cm (5') 06/01/2024 10:39 AM CDT Body Mass Index 31.48 06/01/2024 10:39 AM CDT Plan of Treatment Not on file Procedures Procedure Name Priority Date/Time Associated Diagnosis Comments CT CHEST HIGH RESOLUTION WO CONTRAST Schedule Routine, Read Routine (OP Routine) 04/13/2024 5:38 PM LIFE SKILLS CONSULTANT Interstitial lung disease (HCC) HEPATITIS PANEL, ACUTE Routine 05/12/2016 9:59 PM LIFE SKILLS CONSULTANT from Last 3 Months or Most Recently Relevant to Health Maintenance Results * CT Chest High Resolution WO Contrast (04/13/2024 5:38 PM LIFE SKILLS CONSULTANT) Anatomical Region Laterality Modality Chest N/A Computed Tomogra phy 04/14/2024 1:19 PM LIFE SKILLS CONSULTANT Narrative 04/14/2024 1:27 PM LIFE SKILLS CONSULTANT EXAM DESCRIPTION: CT CHEST HIGH RESOLUTION WO CONTRAST REASON FOR STUDY: Interstitial lung disease F/u on lung nodules TECHNIQUE: CT scan of the chest performed without intravenous contrast using helical scanning technique. Inspiratory and expiratory images were acquired. Prone inspiratory images were acquired. Reconstructed coronal and sagittal MPR images reviewed. All images stored on PACS. Automated exposure control was used as a dose optimization technique for this examination. COMPARISON: CT chest 05/12/2016 FINDINGS: LUNGS: Patent central airways. Mild emphysema. There is evidence of air trapping on expiratory phase images. No nodules or masses. No acute consolidation. No bronchial wall thickening or bronchiectasis. No architectural distortion or honeycombing. No groundglass opacities or reticulation. PLEURA: No effusion. No pneumothorax. MEDIASTINUM/KAVEH: No identified masses or abnormal nodes. HEART: No pericardial effusion. CORONARY ARTERY CALCIFICATION: None VASCULATURE: No aortic aneurysm. AXILLA: No adenopathy. CHEST WALL: No masses. No subcutaneous air. HARDWARE/LINES/TUBES: None. UPPER ABDOMEN: Postcholecystectomy. No acute findings. MUSCULOSKELETAL: No acute findings. No hernias. OTHER: No other significant finding. IMPRESSION: Mild emphysema. No suspicious pulmonary nodule. THIS IS AN ELECTRONICALLY VERIFIED FINAL REPORT 04/14/2024 1:27 PM - Electronically signed by Carole Benedict M.D. FT: FT Report ID: [id number] Reading Location: [place] [address] Procedure Note Carole Sheppard MD - 04/14/2024 EXAM DESCRIPTION: CT CHEST HIGH RESOLUTION WO CONTRAST REASON FOR STUDY: Interstitial lung disease F/u on lung nodules TECHNIQUE: CT scan of the chest performed without intravenous contrastusing helical scanning technique. Inspiratory and expiratory images wereacquired. Prone inspiratory images were acquired. Reconstructed coronal andsagittal MPR images reviewed. All images stored on PACS. Automated exposurecontrol was used as a dose optimization technique for this examination. COMPARISON: CT chest 05/12/2016 FINDINGS: LUNGS: Patent central airways. Mild emphysema. There is evidence ofair trapping on expiratory phase images. No nodules or masses. No acute consolidation. No bronchial wall thickening or bronchiectasis. No architectural distortion or honeycombing. No groundglass opacities or reticulation. PLEURA: No effusion. No pneumothorax. MEDIASTINUM/KAVEH: No identified masses or abnormal nodes. HEART: No pericardial effusion. CORONARY ARTERY CALCIFICATION: None VASCULATURE: No aortic aneurysm. AXILLA: No adenopathy. CHEST WALL: No masses. No subcutaneous air. HARDWARE/LINES/TUBES: None. UPPER ABDOMEN: Postcholecystectomy. No acute findings. MUSCULOSKELETAL: No acute findings. No hernias. OTHER: No other significant finding. IMPRESSION: Mild emphysema. No suspicious pulmonary nodule. THIS IS AN ELECTRONICALLY VERIFIED FINAL REPORT 04/14/2024 1:27 PM - Electronically signed by Carole Benedict M.D. FT: FT Report ID: [id number] Reading Location: [place] [address] Prieto Duke MD IM CT PROCEDURES Final Result * Hepatitis panel, acute (05/12/2016 9:59 PM LIFE SKILLS CONSULTANT) HepBsAg NONREACT NONREACTIVE 05/12/2016 11:58 PM LIFE SKILLS CONSULTANT [employer] HISTORICAL RESULTS Comment: Siemens CentaurXP using VIJAYA (chemiluminescent immunoassay) technology. NONREACTIVE: IgM antibodies to Hepatitis B Surface antigen not detected. REACTIVE: IgM antibodies to Hepatitis B Surface antigen detected. Reactive results will be confirmed by neutralization testing. HBsAb qn < 3.10 mIU/mL 05/12/2016 11:48 PM LIFE SKILLS CONSULTANT [employer] HISTORICAL RESULTS Comment: Siemens CentaurXP using VIJAYA (chemiluminescent immunoassay) technology. 9.99 IU/L or less.....NONREACTIVE: IgM antibodies to Hepatitis B Surface antibody are not detected. 10.00 IU/L or greater..REACTIVE: IgM antibodies to Hepatitis B Surface antibody are detected. Hep B core IgM NONREACT NONREACTIVE 12:24 AM LIFE SKILLS CONSULTANT [employer] HISTORICAL RESULTS Comment: Siemens CentaurXP using VIJAYA (chemiluminescent immunoassay) technology. NONREACTIVE: IgM antibodies to Hepatitis B Core antigen not detected. EQUIVOCAL: IgM antibodies to Hepatitis B Core antigen may or may not be present. Obtain a new specimen and retest. REACTIVE: IgM antibodies to Hepatitis B Core antigen detected. Hep A IgM NONREACT NONREACTIVE 05/13/2016 12:25 AM LIFE SKILLS CONSULTANT [employer] HISTORICAL RESULTS Comment: Siemens CentaurXP using VIJAYA (chemiluminescent immunoassay) technology. NONREACTIVE: IgM antibodies to Hepatitis A not detected. This does not exclude possibility of exposure to Hepatitis A or early acute infection. EQUIVOCAL:IgM antibodies to Hepatitis A may or may not be present. Suggest recollection and retest. REACTIVE: Antibodies to Hepatitis A detected. Hep C Ab NONREACT NONREACTIVE 05/13/2016 12:23 AM LIFE SKILLS CONSULTANT [facility] HISTORICAL RESULTS Comment: Siemens CentaurXP using VIJAYA (chemiluminescent immunoassay) technology. NONREACTIVE: Antibodies to Hepatitis C not detected. This does not exclude early acute Hepatitis C infection, possibility of exposure to Hepatitis C, antibodies below detection limit, or to lack of antibody reactivity to the antigen used in this assay. EQUIVOCAL: Antibodies to Hepatitis C may or may not be present. Sample to be confirmed by real-time PCR method. REACTIVE: Antibodies to Hepatitis C detected. 05/12/2016 9:59 PM LIFE SKILLS CONSULTANT 05/12/2016 10:01 PM LIFE SKILLS CONSULTANT Luis Hernandez DO LAB MICROBIOLOGY - GENERAL ORDERABLES Final Result [facility] HISTORICAL RESULTS from Last 3 Months or Most Recently Relevant to Health Maintenance Insurance [facility] Care Teams Tongsman Relationship Specialty Start Date End Date Magdalena Walden PA [address] [place] [address] PCP - General 05/19/22
--- OUTSIDE RECORDS SUMMARY | 2024-06-10 12:04 | XMS_ITS | Encounter Summary ---
Author Organization [facility] Address [address] [place] [address] Phone Care Team Providers Care Workers Compensation Specialist Name Role Phone Saleem Mckeon MD Primary Care Provider [phone] Magdalena Walden Primary Care Provider [phone] Encounter Details Date Type Department Care Team (Latest Contact Info) Description 02/18/2022 Orders Only [facility] Scanning, Provider Social History Tobacco Use Types Packs/Day Years Used Date Smoking Tobacco: Every Day Cigarettes Smokeless Tobacco: Never AUDIT-C Answer Date Recorded Q1: How often do you have a drink containing alc ohol? Never 06/12/2021 Average Number of Drinks Not on file 022 Q3: How often do you have si x or more drinks on one occasion? 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 Gender Identity Not on file Sexual Orientation Not on file documented as of this encounter Plan of Treatment Not on file documented as of this encounter Procedures Procedure Name Priority Date/Time Associated Diagnosis Comments SCAN - RADIOLOGY/IMAGING 02/18/2022 documented in this encounter Results * SCAN - RADIOLOGY/IMAGING (02/18/2022) Anatomical Region Laterality Modality Other us Provider Scanning Final Result documented in this encounter Visit Diagnoses Not on filedocumented in this encounter Care Teams Workers Compensation Specialist Relationship Specialty Start Date End Date Saleem Mckeon MD PCP - General Emergency Medicine 05/21/21 05/18/22 Magdalena Walden PA [address] [place] [address] PCP - General 05/19/22 documented as of this encounter
--- OUTSIDE RECORDS SUMMARY | 2024-06-10 12:04 | XMS_ITS | Continuity of Care Document ---
Author Organization [facility] Address [address] [place] [address] Phone Care Team Providers Care Data Processing Systems Consultant Name Role Phone Unavailable Unavailable Unavailable Advance Directives Directive Yes / No Effective Date File Name No Information Encounters Encounter Description Practice Location Reason(s) For Visit Diagnoses Date Provider Providers Copied on Encounter [facility], [address] [facility], [place], [place], [id number], [place] tel:[phone] [facility] No Information No Information Referring Provider: MARRY Vasquez, [address], [place], [address]. tel:[phone] Family History Family Member Type Diagnosis Age At Onset No Information Payers Payer name Insurance type Covered constitution party ID Eveline chavez(s) [employer] [facility] [id number] Social History Type Description Quantity Date Captured Comments Sex Female Smoking Status No Information Chief Complaint And Reason For Visit No Information History Of Present Illness Encounter Date Complaint History Of Prese nt Illness No Information Instructions Date Instruction Additional Infor mation No Information Assessments Type Assessment Date No Information
--- OUTSIDE RECORDS SUMMARY | 2024-06-10 12:04 | XMS_ITS | Clinical Summary ---
Author Organization [facility] Address [address] [place] [place] [address] Care Team Providers Care Travel Ot Name Role Phone Gustavo Owens MD Unavailable [phone] Angelo Portillo APRN-AERONAUTICAL ENGINEER Primary Care Provider [phone] Source Comments [facility],non-owned Affiliates and Associated Physician Practices is amultiple site organization consisting of ambulatory clinics and hospital sitesin [place], [place], [place] and [place]. This disclosure is being madepursuant to the Care Everywhere program and may not contain all information available regarding this patient. Last updated 17.[facility] Allergies No known active allergies Medications * Be aware that medications may not be up to date on this document. Alwaysverify current medications with the patient. Medication Sig Dispensed Refills Start Date End Date Status cyanocobalamin (VITAMIN B-12) 1000 MCG tablet Take 1 (one) tablet by mouth once daily Active amitriptyline (Elavil) 25 MG tabletIndications:I ntractable migraine with aura with status migrainosus Take 1 (one) tablet by mouth every evening 90 tablet 4 12/09/2021 Active Additional Information Patient not taking.Reported on 10/29/2023 HYDROcodone-acetami nophen ([place]) 5-325 MG tablet Take 1 (one) tablet by mouth every 4 hours as needed Active tiZANidine (Zanaflex) 2 MG tabletIndications:I ntractable migraine with aura with status migrainosus Take 1 (one) tablet by mouth at bedtime 30 tablet 11 10/29/2023 Active propranolol (Inderal) 10 MG tabletIndications:I ntractable migraine with aura with status migrainosus Take 1 (one) tablet by mouth 2 times daily 180 tablet 3 10/29/2023 Active Nurtec 75 MG tabletIndications:I ntractable migraine with aura with status migrainosus DISSOLVE 1 TABLET ON THE TONGUE EVERY DAY NEEDED FOR MIGRAINE 8 tablet 11 05/06/2024 Active Active Problems Problem Noted Date Diagnosed Date Abnormal CT of the chest 10/29/2023 Degeneration of lumbar intervertebral disc 06/23 Intermittent palpitations 08/22/2022 Obstructive sleep apnea syndrome 08/22/2022 Current smoker 07/23/2022 Neuropathy 05/15/2022 Interstitial lung disease 03/24/2022 Irregular heart beat 03/24/2022 Dyspnea on exertion 02/24/2022 Multiple nodules of lung 05/29/2021 Nicotine dependence 05/29/2021 UARS (upper airway resistance syndrome) 05/20/19 Restless legs syndrome (RLS) 05/19/2021 Iron deficiency anemia 05/19/2021 Sleep talking 05/19/2021 Sleep related leg cramps 05/19/2021 Sleep related bruxism 05/19/2021 Back pain 05/19/2021 Migraine 05/19/2021 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 05/19/2021 Hypersomnia due to medical condition 05/19/2021 Resolved Problems Problem Noted Date Diagnosed Date Resolved Date Cough 02/24/2022 11/26/2023 , incidental 01/29/20212021 Abdominal pain, acute, right lower quadrant 01/29/2021 05/19/2021 Ataxia 01/29/2021 05/19/2021 Encounters Date Type Department Care Team Description 05/06/2024 Refill [facility] - Neurology [address] [place] [address] Arleen Rodriguez APRN-AERONAUTICAL ENGINEER Refill Request 04/25/2024 Telephone [facility] - Centralized Scheduling [address] [place] [phone] Arleen Rodriguez APRN-CNP Reschedule Appointment (Second attempt. Left voicemail to call to reschedule. 04/25/24 JLM) 04/19/2024 Telephone [facility] - Neurology [address] [place] [phone] Arleen Rodriguez APRN-CNP [facility] from Last 3 Months Family History Medical History Relation Name Comments Sleep Disorder - Other Mother rls Diabetes - Type 2 Neg Hx Thyroid Disease Neg Hx Relation Name Status Comments Mother Social History Tobacco Use Types Packs/Day Years Used Date Smoking Tobacco: Every Day Smokeless Tobacco: Never Tobacco Cessation:Ready to Q uit: Not Asked; Counseling Given: Not Answered Alcohol Use Standard Drinks/Week Comments Never 0 (1 standard drink = 0.6 oz pur e alcohol) Sex and Gender Information Value Date Recorded Sex Assigned at Not on file Gender Identity Not on file Sexual Orientation Not on file Last Filed Vital Signs Vital Sign Reading Time Taken Comments Blood Pressure 122/82 10/29/2023 10:04 AM CDT Pulse 77 10/29/2023 10:04 AM CDT Temperature 36.6 C (97.8 F) 06/11/2022 10:25 AM CDT Respiratory Rate - - Oxygen Saturation 99% 10/29/2023 10:04 AM CDT Inhaled Oxygen Concentration - - Weight 75 kg (165 lb 6.4 oz) 10/29/2023 10:04 AM CDT Height 157.5 cm (5' 2 ) 10/29/2023 10:04 AM CDT Body Mass Index 30.25 10/29/2023 10:04 AM CDT Plan of Treatment Upcoming Encounters Date Type Department Care Team (Late st Contact Info) Description 06/27/2024 9:30 AM CDT Office Visit [facility] - Neurology [address] [place] [phone] Arleen Rodriguez APRN-CNP [address] [place] [address] [place] [phone] Health Maintenance Due Date Last Done Comments COLOGUARD (AGES 45-75) - COL ON CA SCREENING 1977 COLON MONITORING 1977 COLONOSCOPY - COLON CA SCREENING 1977 CT COLONOGRAPHY - COLON CA SCREENING 1977 Colorectal Cancer Screening 1977 FIT - COLON CA SCREENING 1977 FLEX SIG - COLON CA SCREENING 1977 LIPID TESTING 1977 MAMMOGRAM 1977 HIV SCREENING 1992 HEPATITIS C SCREENING 06/29/1995 DTAP/TDAP/TD VACCINES (1 - Tdap) 1996 HEPATITIS B VACCINE (1 of 3 - 19+ 3-dose series) 1996 PNEUMOCOCCAL VACCINE (1 of 2 - PCV) 1996 PAP with HPV 07/04/2007 SCREENING FOR DIABETES 10/29/2023 COVID-19 VACCINE (1 - 2023-2 5 season) 2023 INFLUENZA VACCINE (#1) 2023 DEPRESSION SCREENING 03/09/2024 ZOSTER VACCINE (1 of 2) 07/04/2027 HIB VACCINE Aged Out No longer eligi ble based on patient's age to complete this topic HPV VACCINE Aged Out No longer eligi ble based on patient's age to complete this topic MENINGOCOCCAL (Group B) VACC INE SHARED DECISION-MAKING Aged Out No longer eligibl e based on patient's age to complete this topic MENINGOCOCCAL GROUPS A/C/Y/W VACCINE Aged Out No longer eligible b ased on patient's age to complete this topic Care Teams Travel Ot Relationship Specialty Start Date End Date Angelo Portillo APRN-AERONAUTICAL ENGINEER [address] [place] [phone] PCP - General Nurse Practitioner Family 10/29/23 Gustavo Owens MD [address] OF NEUROLOGY [place], [place] Resident Neurology 03/28/21
--- OUTSIDE RECORDS SUMMARY | 2024-06-10 12:04 | XMS_ITS | Clinical Summary ---
Author Organization [facility] Address [address] [place] [address] Phone Care Team Providers Care Library Cataloging Technician Name Role Phone Magdalena Walden Primary Care Provider [phone] Allergies No known active allergies Medications gabapentin [...] care Assessment & Plan (04/25/2024 2:30 PM FREEZER MACHINE OPERATOR): Emphysematous changes via CT chest Pulmonary function [...] Information given regarding [place] Tobacco Quit line: 3-225-JAXL-YES for free services - 5 minutes spent discussing cessation She is currently pre contemplative about quitting and I have strongly encouraged her to call the quit line for free NRT She does not qualify for annual lung cancer screening, her last CT chest was 04/2024 Assessment & Plan (04/25/2024 2:29 PM FREEZER MACHINE OPERATOR): - Smoking cessation counseling and techniques reviewed at length - Avoid triggers and use distraction techniques - Participate in support groups - Information given regarding [place] Tobacco Quit line: 6-404-KODI-YES for free services - 5 minutes spent discussing cessation She was currently pre contemplative about quitting She does not qualify for annual lung cancer screening Fibromyalgia 07/23/2022 Migraines 07/23/[address] of the chest Resolved Problems Problem Noted Date Diagnosed Date Resolved Date Current smoker 07/23/2022 04/25/2024 Encounters Date Type Department Care Team Description 06/07/2024 Telephone [facility] Pulmonary at [address] [place] [phone] Lizbet Kimbrough LPN Paperwork from [place] [facility] 06/01/2024 11:00 AM CDT Office Visit [facility] Pulmonary at [address] [place] [phone] Lucia Multani NP Centrilobular emphysema (HCC) (Primary Dx); Vitamin D deficiency; Iron deficiency; Cigarette nicotine dependence without complication 04/25/2024 11:00 AM FREEZER MACHINE OPERATOR Office Visit [facility] Pulmonary at [address] [place] [phone] Lucia Multani NP Centrilobular emphysema (HCC) (Primary Dx); Cigarette nicotine dependence without complication 04/13/2024 5:00 PM FREEZER MACHINE OPERATOR - 04/13/2024 11:59 PM FREEZER MACHINE OPERATOR Hospital Encounter [facility] [address] [place] [address] Interstitial lung disease (HCC) Discharge Disposition: Discharge to home or self care 03/24/2024 Telephone [facility] Pulmonary at [address] [place] [phone] Yun Villatoro MA testing prior to appointment from Last 3 Months Surgical History Surgery Date Site/Laterality Comments CHOLECYSTECTOMY SECTION Medical History Medical History Date Comments 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 ILD (interstitial lung disease) (HCC) Family History Medical History Relation Name Comments Arthritis Father Arthritis Mother Stroke Mother Relation Name Status Comments Father Mother Social History Tobacco Use Types Packs/Day [...] on file Legal Sex Female 6:14 PM FREEZER MACHINE OPERATOR Gender Identity Not on file Sexual Orientation Not on file Obstetrics History Last Filed Vital Signs Vital Sign Reading [...] 06/01/2024 10:39 AM CDT Plan of Treatment Health Maintenance Due Date Last Done Comments Breast Cancer Screening-Mammogram 1975 Cervical Cancer Screening 1975 Colon Cancer Screening-Colonoscopy 1975 Depression Screening 1977 Hepatitis B Screening 07/04/1995 Regular Well Visit/Exam 18-64 07/04/1995 Pneumococcal vaccine <65 (1 of 2 - PCV) 1996 Influenza Vaccine (Season Ended) 2024 DTaP/Tdap/Td Vaccine (4 - Td or Tdap) 08/16/2028 08/16/2018, 04/29/2016, 04/29/2016 Hepatitis C Screening Completed 05/12/2016 HPV Vaccines Aged Out No longer eligi ble based on patient's age to complete this topic Procedures Procedure Name Priority Date/Time Associated Diagnosis Comments CT CHEST HIGH RESOLUTION WO CONTRAST Schedule Routine, Read Routine (OP Routine) 04/13/2024 5:38 PM FREEZER MACHINE OPERATOR Interstitial lung disease (HCC) HEPATITIS PANEL, ACUTE Routine 05/12/2016 9:59 PM FREEZER MACHINE OPERATOR from Last 3 Months or Most Recently Relevant to Health Maintenance Results * CT Chest High Resolution WO Contrast (04/13/2024 5:38 PM FREEZER MACHINE OPERATOR) Anatomical Region Laterality Modality Chest N/A Computed Tomogra phy 04/14/2024 1:19 PM FREEZER MACHINE OPERATOR Narrative 04/14/2024 1:27 PM FREEZER MACHINE OPERATOR EXAM DESCRIPTION: CT CHEST HIGH RESOLUTION WO [...] Carole Benedict M.D. FT: FT Report ID: [id number] Reading Location: [id number] Procedure Note Carole Sheppard MD - 04/14/2024 [...] Carole Benedict M.D. FT: FT Report ID: [id number] Reading Location: [id number] Prieto Duke MD IM CT PROCEDURES Final Result * Hepatitis panel, acute (05/12/2016 9:59 PM FREEZER MACHINE OPERATOR) HepBsAg NONREACT NONREACTIVE 05/12/2016 11:58 PM FREEZER MACHINE OPERATOR [facility] HISTORICAL RESULTS Comment: Siemens ROX MedicalaurXP using VIJAYA (chemiluminescent immunoassay) technology. NONREACTIVE: IgM antibodies to Hepatitis B Surface antigen not detected. REACTIVE: IgM antibodies to Hepatitis B Surface antigen detected. Reactive results will be confirmed by neutralization testing. HBsAb qn < 3.10 mIU/mL 05/12/2016 11:48 PM FREEZER MACHINE OPERATOR [facility] HISTORICAL RESULTS Comment: Siemens CentaurXP using VIJAYA (chemiluminescent immunoassay) technology. 9.99 IU/L or less.....NONREACTIVE: IgM antibodies to Hepatitis B Surface antibody are not detected. 10.00 IU/L or greater..REACTIVE: IgM antibodies to Hepatitis B Surface antibody are detected. Hep B core IgM NONREACT NONREACTIVE 12:24 AM FREEZER MACHINE OPERATOR [facility] HISTORICAL RESULTS Comment: Siemens CentaurXP using VIJAYA (chemiluminescent immunoassay) technology. NONREACTIVE: IgM antibodies to Hepatitis B Core antigen not detected. EQUIVOCAL: IgM antibodies to Hepatitis B Core antigen may or may not be present. Obtain a new specimen and retest. REACTIVE: IgM antibodies to Hepatitis B Core antigen detected. Hep A IgM NONREACT NONREACTIVE 05/13/2016 12:25 AM FREEZER MACHINE OPERATOR [facility] HISTORICAL RESULTS Comment: Siemens CentaurXP using VIJAYA (chemiluminescent immunoassay) technology. NONREACTIVE: IgM antibodies to Hepatitis A not detected. This does not exclude possibility of exposure to Hepatitis A or early acute infection. EQUIVOCAL:IgM antibodies to Hepatitis A may or may not be present. Suggest recollection and retest. REACTIVE: Antibodies to Hepatitis A detected. Hep C Ab NONREACT NONREACTIVE 05/13/2016 12:23 AM FREEZER MACHINE OPERATOR [facility] HISTORICAL RESULTS Comment: Siemens CentaurXP using VIJAYA [...] to Hepatitis C detected. 05/12/2016 9:59 PM FREEZER MACHINE OPERATOR 05/12/2016 10:01 PM FREEZER MACHINE OPERATOR Luis Hernandez DO LAB MICROBIOLOGY - GENERAL ORDERABLES Final Result [facility] HISTORICAL RESULTS from Last 3 Months or Most Recently Relevant to Health Maintenance Insurance [facility] Care Teams Library Cataloging Technician Relationship Specialty Start Date End Date Magdalena Walden PA [address] [place] [address] [place] [address] PCP - General 05/19/22
--- OUTSIDE RECORDS SUMMARY | 2024-06-10 12:04 | XMS_ITS | Encounter Summary ---
Author Organization [facility] Address [address] [place] [address] Care Team Providers Care Remote Sensing Technician Name Role Phone Unavailable Primary Care Provider Unavailabl e Reason for Visit * MRI/CAT/PET Scan (Routine) - Closed Specialty Diagnoses / Procedures Referred By Yokasta t Referred To Contact Procedures MSK MR Outside Reference Transcribed Order, Provider Referral ID Status Reason Start Date Expiration Date Visits Re quested Visits Authorized [id number] Closed 10/14/2021 11/13/2022 1 1 Encounter Details Date Type Department Care Team (Late st Contact Info) Description 1975 Ancillary Procedure [facility] [address] [facility] [place] [facility] [place] [address] Social History Tobacco Use Types Packs/Day Years Used Date Smoking Tobacco: Never Assessed Comments Unknown Sex and Gender Information Value Date Recorded Sex Assigned at Not on file Legal Sex Female 6:14 PM CORE RESCUER Gender Identity Not on file Sexual Orientation Not on file documented as of this encounter Plan of Treatment Not on file documented as of this encounter Procedures Procedure Name Priority Date/Time Associated Diagnosis Comments MSK MR OUTSIDE REFERENCE Routine 1977 12:00 AM CORE RESCUER documented in this encounter Results * MSK MR Outside Reference (1977 12:00 AM CORE RESCUER) Narrative BLANCO_FRANK_[facility] - 10/14/2021 2:49 PM CDT This order has been auto-finalized and does not contain a result. us Provider Transcribed Order IMG MRI PROCEDURES Fi nal Result TIANNA_KHALIF_FRANK_[facility] documented in this encounter Visit Diagnoses Not on filedocumented in this encounter
--- OUTSIDE RECORDS SUMMARY | 2024-06-10 12:04 | XMS_ITS | Continuity of Care Document ---
Author Organization [place] [facility] Address [address] [address] Assessment No assessment recorded. Plan of Treatment Reminders Order Date Submit Date Provider Last Modified By Organization Details Last Modified Time Details Appointments Any 30 2024 10:00A M BAKARI Reyes Not available Not available Not available Follow Up 15 2024 10:30A BAKARI Matthews Not available Not available Not available Lab None recorded. Referral None recorded. Procedures None recorded. Surgeries None recorded. Imaging US, duplex, venous, upper extremity , unilatera l 2024 025 [facility], [address] [facility] [address], [place], [address], 06/10/2024 12:09:08 Medication Orders None recorded. Patient TargetsNo targets recorded. Patient InstructionsNo instructions recorded. Reason for Referral None Reported. Problems Name Problem SNOMED Code Status Onset Date Resolution Date Notes Provider Name and Address Organization Details Recorded Time Interstiti al lung disease 660435054 Active 2022 Not Available [facility] 3 06:36:04 Irregular heart beat 706457653 Active 2022 Not Available [facility] 3 06:36:04 Multiple nodules of lung 217058991 Active 2021 Not Available [facility] 3 06:36:04 Cough 78472050 Active 2021 Not Available [facility] 3 06:36:04 Nicotine dependence 17359809 Active 2021 Not Available [facility] 3 06:36:04 Dyspnea on exertion 21316872 Active 2021 Not Available [facility] 3 06:36:04 64281098 Completed 201703/23/2018 Not Available [facility] 3 20:21:28 Neuropathy 044749742 Active 2022 Not Available [facility] 3 06:36:04 Fibromyalg ia 932123979 Active 2022 Not Available [facility] 3 06:36:04 Chronic back pain 038935105 Active 2022 Not Available [facility] 3 06:36:04 Headache 02929896 Active 2022 Not Available [facility] 3 06:36:04 Intermitte nt palpitatio ns 100241373 Active 2022 Not Available [facility] 3 06:36:04 Obstructiv e sleep apnea syndrome 02109714 Active 2022 Not Available [facility] 3 06:36:04 Degenerati on of lumbar interverte bral disc 88804109 Active 2023 Elsa Leggett MD [address], [place], [address] , [facility] 4 14:30:21 Swelling of upper limb 583448468 Active 2024 BAKARI Reyes [address], [place], [address] , [facility] 5 12:09:01 Muscle weakness 05484488 Active 2024 BAKARI Reyes [address], [place], [address] , [facility] 5 12:50:02 Notes:RA Vogel [facility] home sleep study 09/16/22 AHI = 6, supine AHI = 17 Medical History: Nicotine use Migraine headaches Obesity with mild OSAHS, AHI = 6, 09/16/22 Mild TR/MA/MR EF 55% ILD Iron deficiency Thoracic spondylosis Fibromyalgia Procedure History: Cholecystectomy Problem Notes None recorded. Procedures Surgical History Date Name Laterality Status Provider Name and Address Organization Details Recorded Time 03/09/19 22 cholecystectomy completed Not Available [facility] 0303/2022 20:20:00 04/30/19 13 section completed Not Available [facility] 03/2022 20:20:00 cheek operation completed Not Available [facility] 05/07/2022 20:20:00 Imaging Results None recorded. Procedure Notes None recorded. Medical Equipment None Reported. Allergies No known drug allergies Medications Name Sig Start Date Stop Date Status Note LastModified by Organization Details LastModified Time amoxicillin 500 mg capsule TAKE ONE CAPSULE BY MOUTH EVERY 8 HOURS UNTIL ALL TAKEN 04/01 completed Not Available Not Available Not Available tizanidine 2 mg tablet TAKE 1 TABLET BY MOUTH AT BEDTIME 06/03 completed Not Available Not Available Not Available hydrocodone 5 mg-acetamin ophen 325 mg tablet TAKE 1 TABLET BY MOUTH EVERY 4 HOURS NEEDED FOR PAIN active Not Available Not Available No t Available sumatriptan 50 mg tablet TAKE 1 TABLET BY MOUTH NEEDED FOR MIGRAINE 04/01 completed Not Available Not Available Not Available topiramate 25 mg tablet TAKE 1 TABLET BY MOUTH TWICE DAILY 04/01 completed Not Available Not Available Not Available nifedipine ER 30 mg tablet,exte nded release 01/25 completed Not Available Not Available Not Available propranolol 10 mg tablet TAKE 1 TABLET BY MOUTH TWICE DAILY 06/03 completed Not Available Not Available Not Available amitriptyli ne 25 mg tablet TAKE 1 TABLET BY MOUTH EVERY EVENING 04/01 completed Not Available Not Available Not Available hydrocodone 7.5 mg-acetamin ophen 325 mg tablet 01/25 completed Not Available Not Available Not Available gabapentin 100 mg capsule TAKE 1 CAPSULE BY MOUTH THREE TIMES DAILY 04/01 completed Not Available Not Available Not Available ergocalcife rol (vitamin D2) 1,250 mcg (50,000 unit) capsule 01/25 completed Not Available Not Available Not Available ibuprofen 600 mg tablet 01/25 completed Not Available Not Available Not Available methylpredn isolone 4 mg tablets in a dose pack TAKE DIRECTED 04/01 completed Not Available Not Available Not Available albuterol sulfate HFA 90 mcg/actuati on aerosol inhaler INHALE 2 PUFFS BY MOUTH EVERY 4 HOURS NEEDED 06/03 completed Not Available Not Available Not Available norethindro ne (contracept mikey) 0.35 mg tablet 01/25 completed Not Available Not Available Not Available ondansetron 4 mg disintegrat ing tablet 04/01 completed Not Available Not Available Not Available clorazepate dipotassium 7.5 mg tablet TAKE 1/2 TABLET BY MOUTH AT BEDTIME. MAY REPEAT WITH 1 ADDITIONA L DOSE IN 30 TO 60 MINUTES IF NEEDED 04/01 completed Not Available Not Available Not Available amoxicillin 875 mg-potassiu m clavulanate 125 mg tablet TAKE 1 TABLET BY MOUTH EVERY 12 HOURS UNTIL ALL TAKEN 04/01 completed Not Available Not Available Not Available duloxetine 20 mg capsule,del ayed release TAKE 1 CAPSULE BY MOUTH EVERY DAY 06/03 completed Not Available Not Available Not Available pregabalin 50 mg capsule TAKE ONE CAPSULE BY MOUTH TWICE DAILY 04/01 completed Not Available Not Available Not Available FeroSul 325 mg (65 mg iron) tablet TAKE 1 TABLET BY MOUTH DAILY 06/03 completed Not Available Not Available Not Available Anoro Ellipta 62.5 mcg-25 mcg/actuati on powder for inhalation USE 1 INHALATIO N BY MOUTH ONCE DAILY active Not Available Not Available No t Available Nurtec ODT 75 mg disintegrat ing tablet DISSOLVE 1 TABLET ON THE TONGUE EVERY DAY NEEDED FOR MIGRAINE active Not Available Not Available No t Available Vitals Date Recorded Body height Body temperature Heart rate Respiratory rate Oxygen saturation Oxygen saturation in Arterial blood by Pulse oximetry Pain severity - 0-10 verbal numeric rating [Score] - Reported Systolic blood pressure Diastolic blood pressure Provider Name and Address Organization Details Last Updated DateTime 157.48 cm 97.5 [degF] 72 /min 20 /min 97 % 97 % 8 118 mm[Hg] 76 mm[Hg] So Nolan RN [facility] Leo 11:08:33 Social History Question Answer Notes LastModified by Organization Details LastModified Time Tobacco Smoking Status Current Every Day Smoker Kori Krishnamurthy LPN null, [facility] 05/16/2022 12:02:35 Do You Have An Advance Directive? No [id number] [id number] Information not available 05/07/2022 What Is Your Level Of Alcohol Consumption? None [email or web address] [id number] Information not available 05/07/2022 What Is Your Level Of Caffeine Consumption? Moderate Information not available 06/03/2024 In The 14 Days Before Symptom Onset, Have You Had Close Contact With A Laboratory-conf irmed COVID-19 While That Case Was Ill? No [email or web address] Information not available 05/16/2022 In The 14 Days Before Symptom Onset, Have You Had Close Contact With A Person Who Is Under Investigation For COVID-19 While That Person Was Ill? No Information not available 05/16/2022 Are You Currently Employed? No Disability Information not available 06/03/2024 What Type Of Diet Are You Following? REGULAR [id number] Information not available 05/07/2022 What Is The Highest Grade Or Level Of School You Have Completed Or The Highest Degree You Have Received? [id number] [email or web address] Information not available 05/16/2022 Have There Been Any Changes To Your Family Or Social Situation? No [email or web address] Information not available 05/16/2022 Do You Use Insect Repellent Routinely? Yes Information not available 06/03/2024 Where Do You Live? SingleLevelHouse [email or web address] Information not available 05/16/2022 What Is Your Current Pack Years? 30ormorepackyears [email or web address] Information not available 05/16/2022 Do You Have Any Pets? No [email or web address] Information not available 05/16/2022 What Is Your Relationship Status? Single [id number] Information not available 05/07/2022 Do You Use Your Seat Belt Or Car Seat Routinely? Yes Information not available 06/03/2024 Do You Have Smoke And Carbon Monoxide Detectors In Your Home? Yes Information not available 05/16/2022 At What Age Did You Start Smoking Tobacco? 16 [email or web address] Information not available 05/16/2022 Are You Passively Exposed To Smoke? Yes [email or web address] Information not available 05/16/2022 Are There Any Smokers In Your House? Yes [email or web address] Information not available 05/16/2022 How Much Tobacco Do You Smoke? 0.5 PPD Information not available 06/03/2024 Do You Participate In Social Media? Yes [email or web address] Information not available 05/16/2022 Do You Feel Stressed (tense, Restless, Nervous, Or Anxious, Or Unable To Sleep At Night)? [id number] [email or web address] Information not available 05/16/2022 Do You Use Any Illicit Or Recreational Drugs? No [email or web address] Information not available 05/16/2022 Do You Use Sunscreen Routinely? Yes Information not available 06/03/2024 Have You Recently Traveled Abroad? No [email or web address] Information not available 05/16/2022 Are You Currently In School? No Information not available 05/16/2022 Do You Have Any Dietary Restrictions? No Information not available 05/16/2022 Do You Or Have You Ever Used Any Other Forms Of Tobacco Or Nicotine? No [email or web address] Information not available 05/16/2022 Sex: Unknown Functional Status Question Answer Note LastModified by Organizat ion Details LastModified Time What is your exercise level? None [id number] Information not available 05/07/2022 Mental Status None recorded. Family History Relationship Description Onset Age of this Age Resolved Age Notes LastModified by Organization Details LastModified Time Father No current problems or disability [id number] Not available 05/07/2022 20:20:01 Mother No current problems or disability stroke [id number] Not available 05/07/2022 20:20:01 Medical History Condition Response HEADACHES/MIGRAINES Y EMPHYSEMA Y ANXIETY DISORDER Y FIBROMYALGIA Y Gynecological History Statement/Question Response Menses Monthly N Abnormal Pap Y Date of LMP 02/06/2022 Obstetrics History GPAL:G 12 P 12 0 0 12 Type Value Full Term 12 Living 12 Total 12 Immunizations Vaccine Type Date Status Note Provider Christian ahmadi and Address Organization Details Recorded Time Tdap 04/29/2016 completed BAKARI Reyes [email or web address], [place], [address], [place] [facility] 06/03/2024 12:03:26 Tdap 08/16/2018 completed BAKARI Reyes [email or web address], [place], [address], [place] [facility] 06/03/2024 12:03:26 Past Encounters Encounter ID Performer Location Encounter Start Date Encounter Closed Date Diagnosis/Indication Diagnosis SNOMED-CT Code Diagnosis ICD10 Code Diagnosis Note [id number] Supriya ElizondoBAKARI [facility] [address] [address] 06/03/2024 11:29:58 06/03/2024 13:58:51 Adult health examination 687498443 Z00.00 Patient is in fair healthHeal th maintenanc e reviewedDi scussed diet and exercisePa tient questions answered Irregular heart beat 361 786903 R00.8 Happens approx 1-2 times per week. EKG and Echo normal Screening for malignant neoplasm of colon 716690152 Z12.11 Degenerati on of lumbar intervertebral disc 01385620 M51.369 Severe pain, mobility issues. Spends most of her days in bed Cholesterol screening 27 7748273 Z13.220 Diabetes m ellitus screening 418768678 Z13.1 Thyroid di sorder screening 164420271 Z13.29 [id number] Supriya Dumasgiselediane [facility] [address] [address] 06/10/2024 10:55:22 06/10/2024 12:51:18 Swelling of upper limb 407748434 R22.31 Muscle weakness 54360959 M62.81 Severe deficits. Disability forms completed Health Concerns Section Related Observation LastModified by Organization Detai ls LastModified Time None Recorded Concern Status LastModified by Organization Details LastModified Time None Recorded Payers Encounter Date Sequence Insurance Name Policy Number Policy Lindsey Covered Member ID Lindsey Member ID Guarantor Name 06/10/2024 1 [facility] - DOS ON OR AFTER 20 (MEDICAID REPLACEMENT - HMO) Mary Gunderson [id number] Mary Gunderson Notes Date Note Type Note Provider Name and Address Organization Details Recorded Time 06/10/2024 text/html Mary Gunderson is a 48 year old female patient here today to complete disability paperwork She has severe physical limitations, current diagnosis is fibromyalgia, though this feels insufficient to explain her symptoms. She has limited ambulation, unable to ambulate without assistance.Left foot drop causes moderate to severe tripping hazard. Notes right arm pain and heaviness, worsened in the last few days. Right brachial pulse diminished. Neuro exam shows significant strength deficit on the right arm and left leg. Mary spends most days in bed due to migraines and chronic pain. BAKARI Reyes [address] [facility] [facility] [address], [place], [address], [place] [facility] [place] [email or web address] 06/10/2024 12:51:16 OBGyn Episode No OBEpisode recorded.
--- OUTSIDE RECORDS SUMMARY | 2024-06-10 12:04 | XMS_ITS | Encounter Summary ---
Author Organization [facility] Address [address] [place] [address] Phone Care Team Providers Care Paint Maker Name Role Phone Magdalena Walden Primary Care Provider [phone] Encounter Details Date Type Department Care Team (Latest Contact Info) Description 07/07/2022 Orders Only [facility] Scanning, Provider [...] on file Legal Sex Female 6:14 PM SENIOR GRADUATE ADVISOR Gender Identity Not on file Sexual Orientation Not on file documented as of this encounter Plan of Treatment Not on file documented as of this encounter Procedures Procedure Name Priority Date/Time Associated Diagnosis Comments SCAN - RADIOLOGY/IMAGING 07/07/2022 documented in this encounter Results * SCAN - RADIOLOGY/IMAGING (07/07/2022) Anatomical Region Laterality Modality Other us Provider Scanning Final Result documented in this encounter Visit Diagnoses Not on filedocumented in this encounter Care Teams Paint Maker Relationship Specialty Start Date End Date Magdalena Walden PA [address] [id number] PCP - General 05/19/22 documented as of this encounter
--- OUTSIDE RECORDS SUMMARY | 2024-06-10 12:05 | XMS_ITS | Data Portability ---
Author Organization [facility] [place] Address [address] [place] [address] Care Team Providers Care Sys Dir Name Role Phone BERONICA ALCARAZ Primary Care Provider Assessment Encounter Date Assessment Date Assessment LastModified by Organization Details LastModified Time 01/22/2021 01/22/2021 if any of the sxs of migraine or abd pain worse rec pt to ED for immediate evaluation Not available 01/22/2021 11:20:20 02/08/2021 02/08/2021 Annual gynecological exam performed. Patient will come back in a year unless there are new symptoms. Suggest Calcium with Vitamin D if not eating in diet. Patient advised to get annual flu shot. Recommend yearly physicals and preform monthly breast exams. Genetic testing is available for patients with family history of cancer. Engage in safe sexual practices, use condoms. Encouraged to have daily exercise. Avoid tobacco and illicit drugs, moderation of alcohol. If BMI greater than 25 dietary consult advised. If you have any questions please call or email. mammogram order given refer to surgeon for abn gallbladder us Not available 02/08/2021 13:32:14 04/01/2024 04/01/2024 Annual gynecological exam performed. Patient will come back in a year unless there are new symptoms. Not available 04/01/2024 11:11:31 Plan of Treatment Reminders Order Date Submit Date Provider Last Modified By Organization Details Last Modified Time Details Appointments None recorded. Lab hormone panel, serum or plasma 2024 025 [facility] (Lab), [address], [place], [address], 5 06:16:36 beta-HCG, quantitati ve, serum or plasma 2024 025 [facility] (Lab), [address], [place], [address], 5 06:16:35 test, urine 2019 020 [email or web address] [id number] [place], [place], [address], 0 09:15:01 Referral None recorded. Procedures None recorded. Surgeries None recorded. Imaging MAMMO, screening, digital, bilateral 2024 025 [email or web address] [facility], [address], [place], [address], 5 17:06:45 Medication Orders None recorded. Patient TargetsNo targets recorded. Patient Instructions Encounter Date Encounter Id Patient Instructions Last Modified By Organization Details Last Modified Time 06/21/2019 [id number] intercours e x 1 week Not available 06/22/2019 08:55:25 discussed possible follow up, pendning pathology Not available 06/22/2019 08:55:42 Reason for Referral None Reported. Results Created Date Observation Date Name Description Value Unit Range Abnormal Flag Note LastModifiedBy Organization Detail LastModifiedTime 06/21/1906/21/2019 pregn alessandro test, urine HCG negati ve Not Available [facility] [address], [place], [address], 06/21/2019 22:12:15 06/21/19 20 06/23/2019 surgi ramírez patho logy study surgical pathology View Report ACCKEVIN FLORES #: [id number] Patie nt Name: MARY BARNES Age-S ex-DO B: 43y F [birth year] Proce dure Date: 06/20 Acckevin dave Date: 2019 Pt Acct# : Repor t Date: 2019 Locat ion: OFFIC E Physi karon( s): Marjorie Rivers le P A T H O L O G Y R E P O R T DIAGN OSIS: 1. Endoc ervix , curet tage: Fragm ents of benig n endoc ervic al and lower uteri ne segme nt gland s. 2. Uteri ne cervi x, brush biops y: Fragm ents of super ficia l endoc ervic al and ectoc ervic al epith elium with no evide nce of dyspl jazlyn or malig tim . See comme nts. Comme nts: The patie nt's histo ry is noted of a prior Pap test demon strat ing ASCUS with detec tion of high risk HPV DNA ([id number]-P [id number]). Of note, these are relat ively limit ed super ficia l sampl ings of diagn ostic cervi ramírez tissu e, with no defin itive trans forma tion zone mucos a prese nt for evalu ation . To minim ize the possi bilit y of false negat mikey evalu ation , recom mend corre latio n with clini ramírez and labor atory studi es with mohan nued follo wup and evalu ation as appro priat e. Figueroa abraham MD elect daniel ceetyrell katelin d 06/22 03:27 PM Gross Descr iptio n: 1. Recei allan in forma radha label ed Mary Barnes and ECC is a cervi ramírez brush conta ining multi ple piece s of hercules- mckeon mucoi d mater ial that in aggre gate are 3 x 0.7 x 0.1 cm. The speci men is place d in a tea bag and total ly submi tted in casse tte 1A, M/1. 2. Recei allan in forma radha label ed Mary Barnes and cervi ramírez biops y is a Spira brush conta ining multi ple piece s of hercules- white tissu e that in aggre gate are 3 x 1 x 0.1 cm. The speci men is place d in a tea bag and total ly submi tted in casse tte 2A, M/1. (AC2, LT3,m lm) Micro scopi c Descr iptio n: Micro scopi c exami natio n is perfo rmed. Clini ramírez Histo ry: Cervi ramírez high risk human papil lomav irus (HPV) DNA test posit mikey (R87. 810); HPV risk on Pap Speci men List: 1. ECC 2. Cervi ramírez biops y brush End of Repor t Techn ical servi keegan provi ded by [facility] [employer] [facility], [address] [facility] , [place] [address] Kelby Cruz MD, Labor atory Direc tor. Case revie wed and diagn osis rende red at [facility], [address] [facility], [place] [address] Prieto garcia MD, Labor atory Dire tor. CONFI DENTI AL Not Available [facility] ([facility]) [facility] [facility] [address], [place], [address], 06/23/2019 16:29:58 01/23/20 21 01/22/2021 CULTU RE: URINE result report SEE RESULT S BELOW Test: Cultu re: Urine Speci men Sourc e: Urine Voide d Speci men Type: Urine Speci men Date: 01/22 1:44 PM Resul t Date: 01/23 10:14 PM Resul t Statu s: Final resul t Abnor mal: No Resul ting Lab: [facility] [address] [facility] [address] Tel: CULTU RE ----- ----- ----- --- No growt h in 1 day (dete ction level of 10,00 0 colon ies / ml.) Not Available [facility] (Lab) [address] [facility], [place], [address], 01/23/2021 23:16:28 01/23/20 21 01/22/2021 pregn alessandro test, urine HCG negati ve Not Available [facility] [address], [place], [address], 01/22/2021 17:34:20 01/23/20 21 01/22/2021 urina lysis , dipst ick Leukocytes trace Not Available [facility] [address], [place], [address], 01/22/2021 13:05:06 01/23/20 21 01/22/2021 urina lysis , dipst ick Nitrite normal Not Available [place] [address], [place], [address], 01/22/2021 13:05:06 01/23/20 21 01/22/2021 urina lysis , dipst ick Urobilinogen normal Not Available [facility]istal [address], [place], [address], 01/22/2021 13:05:06 01/23/20 21 01/22/2021 urina lysis , dipst ick Protein trace Not Available [facility] [address], [place], [address], 01/22/2021 13:05:06 01/23/20 21 01/22/2021 urina lysis , dipst ick pH 5 Not Available [facility] [address], [place], [address], 01/22/2021 13:05:06 01/23/20 21 01/22/2021 urina lysis , dipst ick Blood +++ Not Available [facility] [address], [place], [address], 01/22/2021 13:05:06 01/23/20 21 01/22/2021 urina lysis , dipst ick Specific Addy 1.010 Not Available [facility] [address], [place], [address], 01/22/2021 13:05:06 01/23/20 21 01/22/2021 urina lysis , dipst ick Ketone normal Not Available [facility] [address], [place], [address], 01/22/2021 13:05:06 01/23/20 21 01/22/2021 urina lysis , dipst ick Bilirubin normal Not Available Jamila ahmadi [address], [place], [address], 01/22/2021 13:05:06 01/23/20 21 01/22/2021 urina lysis , dipst ick Glucose normal Not Available [facility] [address], [place], [address], 01/22/2021 13:05:06 01/23/20 21 01/22/2021 urina lysis , dipst ick Appearance normal Not Available [facility] [address], [place], [address], 01/22/2021 13:05:06 01/23/20 21 01/22/2021 urina lysis , dipst ick Color normal Not Available [facility] [address], [place], [address], 01/22/2021 13:05:06 02/09/20 21 02/08/2021 IMAGE GUIDE D PAP AND HPV REGAR DLESS image guided Pap, HPV regardless of Pap result SEE RESULT S BELOW CASE REPOR T: Cytol ogy Gynec ologi ramírez Repor t Case: [id number] Autho trenton g Provi suri: Marjorie Wright, KEYUR Colle cted: 02/08 1423 Order ing Locat ion: [place] [facility] Recei allan: 02/11 0806 First Scree n: DeLuc a, Katelynn, CT Rescr een: Nacha mpass ak, Cash monet, CT Speci men: Scree mike Pap - Image d, Cervi x STATE MENT OF ADEQU ACY: Satis facto ry for evalu ation Trans forma tion zone compo nent prese nt FINAL DIAGN OSIS: Negat mikey for Intra epith elial Lesio n or Parishkelin tim (NIL) . Elect daniel sampson katelin d by Magaly stewart, Cash monet, CT on 02/16 at 3:29 PM ----- ----- ----- ----- ----- ----- ----- ----- ----- ----- ----- ----- ----- ----- ----- ----- ----- ---- HPV RESUL TS: HPV mRNA E6/E7 : No HPV mRNA Detec judith NOTE: This high risk HPV mRNA assay detec ts fourt een high- risk HPV types (16, 18, 31, 33, 35, 39, 45, 51, 52, 56, 58, 59, 66, 68) witho ut diffe renti ation . COMME NT: Note: This speci men was revie wed by a Cytot echno logis t and/o r Patho logis t (as indic ated in this repor t) after evalu ation using the Thinp rep Imagi ng Syste m. CLINI RAMÍREZ INFOR MATIO N: Menst rual Statu s: LMP (if appli cable ): Clini ramírez Histo ry/Pr eviou s Pap: Type of Neopl jazlyn (if appli cable ): Signi fican t Clini ramírez Findi ngs: Other Histo ry: Hormo elroy (if appli cable ): PAP EDUCA AMANDA L NOTE: The Pap Test is a scree mike test with an inher ent false negat mikey rate. Liqui d-bas e sampl ing may decre ase, but will not elimi [place], false negat mikey resul ts. A negat mikey resul t does not precl ude the prese nce and/o r devel opmen t of disea se, since the prese nce of abnor mal cells in the sampl e depen ds on the locat ion of the lesio n and sampl ing techn ique. Mohan nued regul ar scree mike is the best metho d of cance r preve ntion . If repor judith cytol ogic findi ng do not corre late with physi ramírez and/o r histo rical findi ngs, furth er inves tigat ion is recom bernabe d, as clini jarod cain nted. Not Available [facility] (Lab) [address], [place], [address], 02/16/2021 16:32:06 04/01/1904/01/2024 BHCG, QUANT ITATI VE B-HCG <0.2 mIU/m L 0.0-4. 9 This assay was perfo rmed using [employer] ratio n reage nts and test kits. Value s obtai jacob with other assay metho ds or kits canno t be used inter baez eably . Refer ence Range s: Non-p regna nt, preme nopau safia women : 0.0-4 .9 mIU/m L Postm enopa usal women : 0.0-7 .0 mIU/m L Jaquelin l Pregn alessandro: Gesta amanda l Age bHCG Conc. - mIU/m L 3 Weeks 5.8 - 71.7 4 Weeks 9.5 - 750 5 Weeks 217-7 138 6 Weeks 158 - 31,79 5 7 Weeks 3,697 - 162,5 63 8 Weeks 32,06 5 - 149,5 71 9 Weeks 63,80 3 - 151,4 10 10 Weeks 46,50 9 - 186,9 77 12 Weeks 27,83 2 - 210,6 12 14 Weeks 13,95 0 - 62,53 0 15 Weeks 12,03 9 - 70,97 1 16 Weeks 9,040 - 56,45 1 17 Weeks 8,175 - 55,86 8 18 Weeks 8,099 - 58,17 6 Not Available [facility] (Lab) [address], [place], [address], 04/02/2024 06:16:33 04/01/19 25 04/01/2024 FSH, LH, ESTRA DIOL estradiol 57.6 pg/mL This assay was perfo rmed using [employer] reage nts and test kits. Value s obtai jacob with other assay metho ds or kits canno t be used inter [facility] . Femal e Estra diol Range s: Folli cular phase 12.4- 233 pg/mL Ovula tion phase 41.0- 398 pg/mL Lutea l phase 22.3- 341 pg/mL Postm enopa usal <5-13 8 pg/mL Healt hy Pregn ant Women 1st Trime ster 154-3 243 pg/mL 2nd Trime ster 1561- 06772 pg/mL 3rd Trime ster 8525- >3000 0 pg/mL Not Available [facility] (Lab) [address] [place], [address], 04/02/2024 06:16:36 04/01/19 25 04/01/2024 FSH, LH, ESTRA DIOL FSH 11.8 mIU/m L This assay was perfo rmed using [employer] reage nts and test kits. Value s obtai jacob with other assay metho ds or kits canno t be used inter [facility] . Femal es Folli cular : 3.5-1 2.5 mIU/m L Ovula tion: 4.7-2 1.5 mIU/m L Lutea l: 1.7-7 .7 mIU/m L Postm enopa use: 25.8- 134.8 mIU/m L Not Available [facility] (Lab) [address] [place], [address], 04/02/2024 06:16:36 04/01/19 25 04/01/2024 FSH, LH, ESTRA DIOL LH 6.0 mIU/m L This assay was perfo rmed using [employer] reage nts and test kits. Value s obtai jacob with other assay metho ds or kits canno t be used inter [facility] . Femal es Mid-F ollic ular: 2.4-1 2.6 mIU/m L Mid-C ycle: 14.0- 95.6 mIU/m L Mid-L uteal : 1.0-1 1.4 mIU/m L Postm enopa use: 7.7-5 8.5 mIU/m L Not Available [facility] (Lab) [address], [place], [address], 04/02/2024 06:16:36 04/01/19 25 04/01/2024 IMAGE GUIDE D PAP AND HPV REGAR DLESS image guided Pap, HPV regardless of Pap result SEE RESULT S BELOW abnormal CASE REPOR T: Cytol ogy Gynec ologi ramírez Repor t Case: [id number] Aut[address] Provi suri: Yesenia Boudreaux, KEYUR Colle cted: 04/01 1635 Order ing Locat ion: [place] [facility] Recei allan: 04/04 0753 First Scree n: Ree Baptiste, CT Patho logis t: Nayeli sorensen , Rubi Young MD Speci men: Tahirgaldino mckeon Pap - Image d, Cervi x STATE MENT OF ADEQU ACY: Satis facto ry for evalu ation Trans forma tion zone compo nent prese nt ----- ----- ----- ----- ----- ----- ----- ----- ----- ----- ----- ----- ----- ----- ----- ----- ----- ---- FINAL DIAGN OSIS: Epith elial Cell Abnor malit y, Squam ous Cell: Atypi ramírez Squam ous Cells of Undet ermin ed Tracy trejo (ASC- [place]). Elect daniel easton by Rubi sorensen MD on 2024 at 1300 FURNITURE SHAMPOOER ----- ----- ----- ----- ----- ----- ----- ----- ----- ----- ----- ----- ----- ----- ----- ----- ----- ---- HPV RESUL TS: HPV mRNA E6/E7 : No HPV mRNA Detec judith NOTE: This high risk HPV mRNA assay detec ts fourt een high- risk HPV types (16, 18, 31, 33, 35, 39, 45, 51, 52, 56, 58, 59, 66, 68) witho ut diffe renti ation . COMME NT: This speci men was revie wed by a Cytot echno logis t and/o r Patho logis t (as indic ated in this repor t) after evalu ation using the Thinp rep Imagi ng Syste m. CLINI RAMÍREZ INFOR MATIO N: Menst rual Statu s: LMP (if appli cable ): Clini ramírez Histo ry/Pr eviou s Pap: Type of Neopl jazlyn (if appli cable ): Signi fican t Clini ramírez Findi ngs: Other Histo ry: Hormo elroy (if appli cable ): DANNY KONG FOLLO W-UP: Follo w up as warra nted, based on curre nt guide lines and indiv idual patie nt consi derat ions. Not Available [facility] (Lab) [address] [facility], [place], [address], 04/07/2024 14:05:14 01/01/20 21 12/31/2020 CT, brain , w/o contr ast No observ ation record ed. [address] [facility] [place], [address], 01/07/2021 15:40:37 01/01/20 21 12/31/2020 CT, angio gram, carot id arter ies, w/wo contr ast No observ ation record ed. [address] [address], [place], [address], 01/07/2021 15:40:37 01/01/20 21 12/31/2020 MRI, brain + brain stem, w/wo contr ast No observ ation record ed. [facility] [address], [place], [address], 01/01/2021 11:41:43 01/31/2001/30/2021 US, abdom en, compl ete No observ ation record ed. [facility] [address], [place], [address], 02/04/2021 13:30:41 Result Notes None recorded. Problems Name Problem SNOMED Code Status Onset Date Resolution Date Notes Provider Name and Address Organization Details Recorded Time Single live [id number] Completed 201801/22/2021 Single live ;Pr actice ID: 0001 Gilda anderson [facility] 10:42:36 Gestatio n period, 40 weeks [id number] Completed 201801/22/2021 40 weeks gestatio n of pregnanc y;Practi ce ID: 0001 G[facility] 10:41:59 Lochia finding Completed 201801/22/2021 Encounte r for routine postpart um follow-u p;Practi ce ID: 0001 G[facility] 10:42:[address] Concept Completed 201801/22/2021 Encntr for routine child health exam w/o abnormal findings ;Practic e ID: 0001 [facility] 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 10:42:40 Finding of menstrua l bleeding Completed 201801/22/2021 Excessiv e and frequent menstrua tion with regular cycle;Pr actice ID: 0001 Gilda anderson, [facility] 10:41:56 Normal pregnanc y in multigra fidelina [id number] Completed 201801/22/2021 Encounte r for supervis ion of other normal pregnanc y, 3rd trimeste r;Record ed Elsewher e: No Locat ion: [facility] S ource: EHR Supervisor Twisting Department willie: N Segundo ce ID: 0001 Harsh lable Time: 08:30:00 AM Gilda anderson, [facility] 1 10:42:05 Rubella screenin g status [id number] Completed 201801/22/2021 Encounte r for antenata l screenin g, unspecif ied;Samson rded Elsewher e: No Locat ion: [facility] S ource: EHR Supervisor Twisting Department willie: N Segundo ce ID: 0001 Harsh lable Time: 02:45:00 PM Gilda anderson, [facility] 1 10:42:35 Pregnanc y-induce d hyperten dave Completed 201801/22/2021 Gestatio nal hyperten dave w/o signific ant proteinu lencho, 2nd trimeste r;Record ed Elsewher e: No Locat ion: [facility] S ource: EHR Supervisor Twisting Department willie: N Segundo ce ID: 0001 Harsh lable Time: 02:45:00 PM Gilda anderson [facility] 10:42:33 Evaluati on finding Completed 201801/22/2021 Unsp abnormal cytolog findings in specmn from cervix uteri;Re corded Elsewher e: No Locat ion: [facility] S ource: EHR Supervisor Twisting Department willie: N Segundo ce ID: 0001 Harsh lable Time: 10:15:00 AM Gilda anderson [facility] 1 10:41:54 Educatio n Completed 201801/22/2021 Encounte r for other general counseli ng and advice on contrace ption;Re corded Elsewher e: No Locat ion: Jamila ahmadi [facility] S ource: EHR Supervisor Twisting Department willie: N Practi ce ID: 0001 Harsh lable Time: 10:45:00 AM Gilda anderson [facility] 10:41:52 Antenata l screenin g Completed 201801/22/2021 Encounte r for other specifie d antenata l screenin g;Practi ce ID: 0001 Gilda anderson [facility] 10:41:50 Labor and delivery complica tion by meconium in amniotic fluid [id number] Completed 201801/22/2021 Labor and delivery complica judith by meconium in amniotic fluid;Pr actice ID: 0001 [facility] 10:42:01 Problem Notes None recorded. Procedures Surgical History Date Name Laterality Status Provider Name and Address Organization Details Recorded Time 025 Date of Last Pap Smear completed Gilda Hernandez [facility] 04/01/2024 17:32:29 022 cholecystectomy completed Gilda Hernandez [facility] 06/05/2021 11:22:48 020 Colposcopy completed Marjorie Torre CNM [address], [place], [address], [place] [facility] 06/22/2019 08:55:08 020 Colposcopy completed Gilda Hernandez [facility] 06/21/2019 13:21:15 020 Colposcopy completed Gilda Hernandez [facility] 01/22/2021 10:34:53 06/15/2 018 Colposcopy completed [facility] 02/18/2021 12:05:00 017 Colposcopy completed [facility] 02/18/2021 12:05:09 013 section completed [facility] 02/18/2021 12:05:37 996 Dilation and Curettage completed [facility] 02/18/2021 12:05:22 994 cheek operation completed [facility] 02/18/2021 12:06:31 Imaging Results Imaging Date Name Status LastModified by Organiz ation Details LastModified Time 12/31/2020 CT, brain, w/o contrast completed [address] [place] [address], [address], 01/07/2021 15:40:37 12/31/2020 CT, angiogram, carotid arteries, w/wo contrast completed [address] [place] [address], [address], 01/07/2021 15:40:37 12/31/2020 MRI, brain + brain stem, w/wo contrast completed [address] [place] [address], [address], 01/01/2021 11:41:43 01/30/2021 US, abdomen, complete completed [address] [place] [address], [id number], 02/04/2021 13:30:41 Procedure Notes None recorded. Medical Equipment None Reported. Allergies No known drug allergies Medications Name Sig Start Date Stop Date Status Note LastModified by Organization Details LastModified Time tizanidin e 2 mg tablet TAKE 1 TABLET BY MOUTH AT BEDTIME 04/01 completed Not Available Not Available Not Available hydrocodo ne 5 mg-acetam inophen 325 mg tablet TAKE 1 TABLET BY MOUTH EVERY 4 HOURS NEEDED FOR PAIN 04/01 completed Not Available Not Available Not Available topiramat e 25 mg tablet TAKE 1 TABLET BY MOUTH TWICE DAILY 04/01 completed Not Available Not Available Not Available propranol ol 10 mg tablet TAKE 1 TABLET BY MOUTH TWICE DAILY 04/01 completed Not Available Not Available Not Available gabapenti n 100 mg capsule TAKE 1 CAPSULE BY MOUTH THREE TIMES DAILY 06/05 completed Not Available Not Available Not Available Aspir-81 mg tablet,de layed release take 1 tablet by oral route every day 12/21 completed Prescrib ed Elsewher e: Yes Loca tion: [facility] M odify By: harish Ruth r DateTime : 03/30/19 19 02:45:00 PM Not Available Not Available Not Available methylpre dnisolone 4 mg tablets in a dose pack TAKE DIRECTED 06/05 completed Not Available Not Available Not Available amoxicill in 875 mg-potass ium clavulana te 125 mg tablet TAKE 1 TABLET BY MOUTH EVERY 12 HOURS UNTIL ALL TAKEN 06/05 completed Not Available Not Available Not Available Mary 0.35 mg tablet take 1 tablet by oral route every day 01/22 completed Prescrib ed Elsewher e: No Locat ion: [facility] Modify By: [email or web address] Encounwilma r DateTime : 12/22/19 19 03:45:00 PM Not Available Not Available Not Available duloxetin e 20 mg capsule,d elayed release TAKE 1 CAPSULE BY MOUTH EVERY DAY 04/01 completed Not Available Not Available Not Available pregabali n 50 mg capsule TAKE ONE CAPSULE BY MOUTH TWICE DAILY 04/01 completed Not Available Not Available Not Available FeroSul 325 mg (65 mg iron) tablet TAKE 1 TABLET BY MOUTH DAILY 04/01 completed Not Available Not Available Not Available + DHA 01/22 completed Not Available Not Available Not Available 28 mg-800 mcg tablet 12/21 completed Prescrib ed Elsewher e: Yes Loca tion: [facility] M odify By: harish Ruth r DateTime : 03/30/19 19 02:45:00 PM Not Available Not Available Not Available Slynd 4 mg (28) tablet Take 1 tablet every day by oral route. 01/22 completed Not Available Not Available Not Available [facility] ODT 75 mg disintegr ating tablet DISSOLVE 1 TABLET ON THE TONGUE EVERY DAY NEEDED FOR MIGRAINE active Not Available Not Available No t Available Vitals Date Recorded Body height Body mass index (BMI) Body weight Systolic blood pressure Diastolic blood pressure Provider Name and Address Organization Details Last Updated DateTime 01/22/2021 152.4 cm 30.5 kg/m2 28935.41 g 130 mm[Hg] 79 mm[Hg] Gilda Hernandez [facility] 1 10:36:27 Date Recorded Body height Body mass index (BMI) Body weight Systolic blood pressure Diastolic blood pressure Provider Name and Address Organization Details Last Updated DateTime 02/08/2021 152.4 cm 30.5 kg/m2 49254.41 g 110 mm[Hg] 74 mm[Hg] Gilda Hernandez [facility] 1 11:30:46 Date Recorded Body height Body mass index (BMI) Body weight Systolic blood pressure Diastolic blood pressure Provider Name and Address Organization Details Last Updated DateTime 06/05/2021 152.4 cm 30.5 kg/m2 08824.41 g 110 mm[Hg] 75 mm[Hg] Gilda Hernandez [facility] 2 11:21:36 Date Recorded Body height Body mass index (BMI) Body weight Systolic blood pressure Diastolic blood pressure Provider Name and Address Organization Details Last Updated DateTime 04/01/2024 152.4 cm 32 kg/m2 13618.15 g 117 mm[Hg] 77 mm[Hg] Gilda Hernandez [facility] 5 11:11:51 Date Recorded Body height Body mass index (BMI) Body weight Systolic blood pressure Diastolic blood pressure Provider Name and Address Organization Details Last Updated DateTime 06/21/2019 152.4 cm 27.9 kg/m2 78873.71 g 106 mm[Hg] 72 mm[Hg] Gilda Hernandez [facility] 0 13:19:56 Social History Question Answer Notes LastModified by Organizat ion Details LastModified Time Tobacco Smoking Status Current Every Day Smoker [facility] 06/21/2019 13:24:32 What Is Your Level Of Alcohol Consumption? Occasional [email or web address] Information not available 01/22/2021 If You Are , What Was Your Level Of Alcohol Consumption Prior To ? None [email or web address] Information not available 01/22/2021 Are You Blind Or Do You Have Difficulty Seeing? No [email or web address] Information not available 01/22/2021 What Is Your Level Of Caffeine Consumption? Occasional [email or web address] Information not available 01/22/2021 In The 14 Days Before Symptom Onset, Have You Had Close Contact With A Laboratory-confir med COVID-19 While That Case Was Ill? No [email or web address] Information not available 01/22/2021 In The 14 Days Before Symptom Onset, Have You Had Close Contact With A Person Who Is Under Investigation For COVID-19 While That Person Was Ill? No [email or web address] Information not available 01/22/2021 Have You Been To An Area Known To Be High Risk For COVID-19? No [email or web address] Information not available 01/22/2021 Are You Deaf Or Do You Have Serious Difficulty Hearing? No [email or web address] Information not available 01/22/2021 What Type Of Diet Are You Following? REGULAR [email or web address] Information not available 01/22/2021 Have You Ever Been Counseled For Unhealthy Alcohol Use? No [email or web address] Information not available 01/22/2021 Do You Use Your Seat Belt Or Car Seat Routinely? Yes [email or web address] Information not available 01/22/2021 Do You Have Smoke And Carbon Monoxide Detectors In Your Home? Yes [email or web address] Information not available 01/22/2021 How Much Tobacco Do You Smoke? 0.5 PPD [email or web address] Information not available 06/21/2019 Do You Feel Stressed (tense, Restless, Nervous, Or Anxious, Or Unable To Sleep At Night)? [id number] [email or web address] Information not available 01/22/2021 Do You Use Any Illicit Or Recreational Drugs? No Information not available 01/22/2021 Do You Use Sunscreen Routinely? Yes [email or web address] Information not available 01/22/2021 Has Tobacco Cessation Counseling Been Provided? No Information not available 01/22/2021 Do You Or Have You Ever Used Any Other Forms Of Tobacco Or Nicotine? No [email or web address] Information not available 01/22/2021 Sex: Unknown Functional Status Question Answer Note LastModified by Organizat ion Details LastModified Time Do you have difficulty walking or climbing stairs? No [email or web address] Information not available 06/05/2021 Are you able to walk? YESWOREST Information not available 01/22/2021 Are you able to care for yourself? Yes [email or web address] Information not available 06/05/2021 Do you have difficulty dressing or bathing? No [email or web address] Information not available 06/05/2021 What is your exercise level? Occasional [email or web address] Information not available 06/21/2019 Mental Status None recorded. Family History Relationship Description Onset Age of this Age Resolved Age Notes LastModified by Organization Details LastModified Time Mother Cerebrovascu lar accident [email or web address] Not available 12:14:52 Father Myocardial infarction [email or web address] Not available 02/06 12:15:07 Medical History Condition Response Other N Blood Transfusion N Dermatologic Disorders N Gestational Diabetes N Anxiety Disorder N Autoimmune disease N Arthritis N Polyps N Infertility N Acid Reflux (GERD) N Cancer N Varicosities N Stroke N Neurologic/Epilepsy N Fibromyalgia N Headaches Y Kidney Disease N Heart Problems N Kidney or Bladder Problems N Eating Disorder N Art (IVF or FET) N Hepatitis/Liver Disease N No Past Medical History N Urinary Tract Infection N Asthma N Trauma/Violence N Thrombophilias N Allergies (Food, seasonal, environmental ) N Breast Cancer N Drug/Latex Allergies/Reactions N Lung Disease Y Defects or Inherited Disease N Breast Problem N Hematologic disorders N Anesthesia Complications N History of STI Y Deep Vein Thrombosis N Polycystic ovary syndrome N History of abnormal pap Y Endometriosis N High Cholesterol N Thyroid Problems N GI Problems N Anemia N Psychiatric Illness N Ovarian Cancer N Diabetes N Pulmonary (TB, Asthma) N Eczema N Abuse/Domestic Violence N Depression/ depression N Heart Disease N Pre-Eclampsia Y Hypertension Y Osteoporosis N Gynecological History Statement/Question Response Abnormal Pap Yes Date of Last Mammogram Most Recent Bone Density Date of LMP 12/08/2023 STIs/STDs Yes Colposcopy 06/21/2019 Date of Last Pap Smear 04/01/2024 Current Control Method None LMP Definite 10/27/2018 Obstetrics History GPAL:G 11 P 9 0 1 11 Type Value Multiple Births 1 Full Term 9 Spontaneous 1 Living 11 Total 11 Past Encounters Encounter ID Performer Location Encounter Start Date Encounter Closed Date Diagnosis/Indication Diagnosis SNOMED-CT Code Diagnosis ICD10 Code Diagnosis Note [id number] Marjorie Torre [place] [address],[place] [address] 06/21/2019 12:24:05 06/21/2019 12:40:11 Screening procedure 33319209 Z13.9 [id number] Marjorie Torre [place] [address],[place] [address] 01/22/2021 10:23:04 01/22/2021 11:35:38 Abdominal pain 86422582 R10.9 plan us, low fat diet Migraine 07703061 G43.90 9 f/u with neuro as scheduled [id number] Marjorie Torre [place] [address],[place] [address] 02/08/2021 11:01:47 02/08/2021 13:48:36 Gynecologic examination 93603876 Z01.419 Z11.51 [id number] Marjorie Torre [place] [address],[place] [address] 06/05/2021 11:09:43 06/05/2021 12:47:42 Muscle weakness 21316939 M62.81 gave order to check vit d and b12 with next set of labs, handout on IUD given, f/u wwe Fatigue 17837319 R53.83 [id number] VY Dorado [place] [address],[place] [address] 04/01/2024 10:48:30 04/01/2024 12:04:33 Irregular periods 54963067 N92.6 labs ordereddis cussed perimenopa use Gynecologi c examination 38183830 Z01.419 WWEBC - declinedPa p - done todaySTI screen - declinedMa mmogram - order givenColon cancer screening - discussed and encouraged , she is going f/u with PCPRoutine labs - UTD/PCPRTC in 1 yr or sooner if needed Suggested Calcium with Vitamin D daily. Patient advised to get an annual flu shot in the fall and she could obtain at local pharmacy. Also to obtain TDap vaccinatio n if you have not had one in the last 10 years. Recommend yearly mammograms . Encouraged monthly self breast exams. Encourage safe sexual practices, to use condoms and limit partners if not already in a monogamous relationsh ip. Engage in regular exercise. Avoid tobacco and illicit drugs. This lifestyle behavior pattern will lead to less health conditions and longer life span. If BMI greater than 25 dietary consult advised. All questions have been answered. Screening for malignant neoplasm of breast 257268397 Z12.39 Health Concerns Section Related Observation LastModified by Organization Detai ls LastModified Time None Recorded Concern Status LastModified by Organization Details LastModified Time None Recorded Advance Directives Directive None Recorded Payers Encounter Date Sequence Insurance Name Policy Number Policy Lindsey Covered Member ID Lindsey Member ID Guarantor Name 06/21/2019 1 [facility] PRIOR TO 09/06/2020 (MEDICAID REPLACEMENT - HMO) Mary Barnes [id number] 01/22/2021 1 [facility] ON OR AFTER 09/06/20 (MEDICAID REPLACEMENT - HMO) Mary Barnes [id number] 02/08/2021 1 [facility] ON OR AFTER 09/06/20 (MEDICAID REPLACEMENT - HMO) Mary Barnes [id number] 06/05/2021 1 [facility] ON OR AFTER 09/06/20 (MEDICAID REPLACEMENT - HMO) Mary Barnes [id number] 04/01/2024 1 [facility] ON OR AFTER 09/06/20 (MEDICAID REPLACEMENT - HMO) Mary Barnes [id number] Notes Date Note Type Note Provider Name and Address Organization Details Recorded Time 06/21/2019 text/html pt presents for colposcopy, Ascus + HPV, reviewed pap and coplo consent signed Marjorie Torre [facility] [address], [place], [address], [facility] 06/22/2019 08:57:14 01/22/2021 text/html pt dealing wit debilitating migraines, was in ED and CT scans neg, labs negative, doesn't have appt until late march with neuro for follow up.now had been having upper abd pain for awhile under ribs sometimes in back, hurts worse when eats fatty food, no appetitenot on cycle 3+ blood in urine no urinary sxs, will send culture Marjorie Torre CNM [address], [place], [address], [facility] 01/22/2021 11:20:33 02/08/2021 text/html Annual GYNReport ed bypatient.Menstrual cycle:Normal menses Urinary symptoms:No hematuria; No incontinence Vulva:No genital lesion Vagina:Normal vaginal discharge Breast:No breast pain; No breast lump; No nipple discharge Sexual complaints:No sexual complaints; No pain during intercourse; Normal libido Menopausal Symptoms:No menopausal symptoms; Normal vaginal lubrication Psychological symptoms:No depression; No anxiety; No PMDD Preventive measures:Encourage self breast examination; Encourage regular exercise; Encourage no tobacco useNotes:still having trouble with GI sxs, us reviewed will refer to [facility], seeing neuro and they will be doing MRI soon Marjorie Torre CNM [address], [place], [address], [facility] 02/08/2021 13:32:32 06/05/2021 text/html pt pcp wanted he r to see me due to clotting during cycles, bleeding not heavy, clotting not heavy, pt not really interested in hormones, has low iron, has seen slu for migraine and those are better, overall muscle weakness, seeing slu specialist . aslo seeing communications clerk for lung nodules, MRI neg for MS Marjorie Torre CNM [address], [place], [address], [facility] 06/05/2021 11:41:28 04/01/2024 text/html Annual GYNReport ed bypatient.Menstrual cycle:Irregular cycle intervals Urinary symptoms:No hematuria; No incontinence Vulva:No genital lesion Vagina:Normal vaginal discharge Breast:No breast pain; No breast lump; No nipple discharge Current Contraception: control not practiced Sexual complaints:No sexual complaints; No pain during intercourse; Normal libido Menopausal Symptoms:No menopausal symptoms; Normal vaginal lubrication Psychological symptoms:No depression; No anxiety; No PMDD Preventive measures:Encourage self breast examination; Encourage regular exercise; Encourage no tobacco use; Encourage regular mammograms starting age 42Notes:48yo wwelast pap 2020 : wnlh/o abnormal papsBC - nonemammogram - needs orderUTD with PCP LMP 12/2023for the last year periods every 1-3 monthsprior to last year was having monthly periods VY Dorado [address], [place], [address], [facility] 04/01/2024 12:03:42 OBGyn Episode Ob Episode Information Episode Created Date Number of Fetuses Patient Bloodtype Patient rh Status Prepregnancy Weight lbs Domestic Partner Domestic Partner Phone Father Name Spray Gunner Status 06/21/19 20 1 CLOSED Fetus Data First Name Last Name Admitted to NICU Weight (g) Sex Living Outcome Pediatric Complications Fetus ID Race Codes Race Delivery Type 3458.63 9 M Full Term 401 Vaginal Delivery Yunier Calculation Initial Yunier Date Initial Exam Date Initial Exam Provider Initial Ultrasound Date Last Menstrual Period Date Ultra Sound Weeks Gestation 0 Eighteen To Twenty Week Yunier Update Ultra Sound Date Fundal Height At Umbil Quickening Date Ultra Sound Latest Weeks Gestation Final Yunier Confirmed By Final Yunier Confirmed Date Final Yunier Date Ultra Sound Latest Days Gestation 0 0 Menstrual History Last Menstrual Date Menses Monthly On Bcp Conception Prior Menses Frequency Hcg Plus Date Menarche Onset Age Delivery Information Delivery Date Delivery Type Labor Anesthesia Weeks Gestation Incision Type Labor Labor Length Hrs Delivered By Post Complications Tubal Sterilization Discharge Date Comments 7 Discharge Information Feeding Method Contraceptive Method Maternal HG B and HCT Levels Ob Episode Information Episode Created Date Number of Fetuses Patient Bloodtype Patient rh Status Prepregnancy Weight lbs Domestic Partner Domestic Partner Phone Father Name Spray Gunner Status 06/21/19 20 1 CLOSED Fetus Data First Name Last Name Admitted to NICU Weight (g) Sex Living Outcome Pediatric Complications Fetus ID Race Codes Race Delivery Type 2778.25 1 M Full Term 406 V Back Yunier Calculation Initial Yunier Date Initial Exam Date Initial Exam Provider Initial Ultrasound Date Last Menstrual Period Date Ultra Sound Weeks Gestation 0 Eighteen To Twenty Week Yunier Update Ultra Sound Date Fundal Height At Umbil Quickening Date Ultra Sound Latest Weeks Gestation Final Yunier Confirmed By Final Yunier Confirmed Date Final Yunier Date Ultra Sound Latest Days Gestation 0 0 Menstrual History Last Menstrual Date Menses Monthly On Bcp Conception Prior Menses Frequency Hcg Plus Date Menarche Onset Age Delivery Information Delivery Date Delivery Type Labor Anesthesia Weeks Gestation Incision Type Labor Labor Length Hrs Delivered By Post Complications Tubal Sterilization Discharge Date Comments 8 38.2 Discharge Information Feeding Method Contraceptive Method Maternal HG B and HCT Levels Ob Episode Information Episode Created Date Number of Fetuses Patient Bloodtype Patient rh Status Prepregnancy Weight lbs Domestic Partner Domestic Partner Phone Father Name Spray Gunner Status 06/21/19 20 1 CLOSED Fetus Data First Name Last Name Admitted to NICU Weight (g) Sex Living Outcome Pediatric Complications Fetus ID Race Codes Race Delivery Type 3515.33 8 M Full Term 400 Vaginal Delivery Yunier Calculation Initial Yunier Date Initial Exam Date Initial Exam Provider Initial Ultrasound Date Last Menstrual Period Date Ultra Sound Weeks Gestation 0 Eighteen To Twenty Week Yunier Update Ultra Sound Date Fundal Height At Umbil Quickening Date Ultra Sound Latest Weeks Gestation Final Yunier Confirmed By Final Yunier Confirmed Date Final Yunier Date Ultra Sound Latest Days Gestation 0 0 Menstrual History Last Menstrual Date Menses Monthly On Bcp Conception Prior Menses Frequency Hcg Plus Date Menarche Onset Age Delivery Information Delivery Date Delivery Type Labor Anesthesia Weeks Gestation Incision Type Labor Labor Length Hrs Delivered By Post Complications Tubal Sterilization Discharge Date Comments 4 Discharge Information Feeding Method Contraceptive Method Maternal HG B and HCT Levels Ob Episode Information Episode Created Date Number of Fetuses Patient Bloodtype Patient rh Status Prepregnancy Weight lbs Domestic Partner Domestic Partner Phone Father Name Spray Gunner Status 06/21/19 20 1 CLOSED Fetus Data First Name Last Name Admitted to NICU Weight (g) Sex Living Outcome Pediatric Complications Fetus ID Race Codes Race Delivery Type 3515.33 8 F Full Term 402 Vaginal Delivery Yunier Calculation Initial Yunier Date Initial Exam Date Initial Exam Provider Initial Ultrasound Date Last Menstrual Period Date Ultra Sound Weeks Gestation 0 Eighteen To Twenty Week Yunier Update Ultra Sound Date Fundal Height At Umbil Quickening Date Ultra Sound Latest Weeks Gestation Final Yunier Confirmed By Final Yunier Confirmed Date Final Yunier Date Ultra Sound Latest Days Gestation 0 0 Menstrual History Last Menstrual Date Menses Monthly On Bcp Conception Prior Menses Frequency Hcg Plus Date Menarche Onset Age Delivery Information Delivery Date Delivery Type Labor Anesthesia Weeks Gestation Incision Type Labor Labor Length Hrs Delivered By Post Complications Tubal Sterilization Discharge Date Comments 9 39 Discharge Information Feeding Method Contraceptive Method Maternal HG B and HCT Levels Ob Episode Information Episode Created Date Number of Fetuses Patient Bloodtype Patient rh Status Prepregnancy Weight lbs Domestic Partner Domestic Partner Phone Father Name Spray Gunner Status 06/21/19 20 2 CLOSED Fetus Data First Name Last Name Admitted to NICU Weight (g) Sex Living Outcome Pediatric Complications Fetus ID Race Codes Race Delivery Type 2438.05 7 F Full Term 404 Vaginal Delivery 2125.98 5704 M Full Term 405 Primary Yunier Calculation Initial Yunier Date Initial Exam Date Initial Exam Provider Initial Ultrasound Date Last Menstrual Period Date Ultra Sound Weeks Gestation 0 Eighteen To Twenty Week Yunier Update Ultra Sound Date Fundal Height At Umbil Quickening Date Ultra Sound Latest Weeks Gestation Final Yunier Confirmed By Final Yunier Confirmed Date Final Yunier Date Ultra Sound Latest Days Gestation 0 0 Menstrual History Last Menstrual Date Menses Monthly On Bcp Conception Prior Menses Frequency Hcg Plus Date Menarche Onset Age Delivery Information Delivery Date Delivery Type Labor Anesthesia Weeks Gestation Incision Type Labor Labor Length Hrs Delivered By Post Complications Tubal Sterilization Discharge Date Comments 3 37.4 Discharge Information Feeding Method Contraceptive Method Maternal HG B and HCT Levels Ob Episode Information Episode Created Date Number of Fetuses Patient Bloodtype Patient rh Status Prepregnancy Weight lbs Domestic Partner Domestic Partner Phone Father Name Spray Gunner Status 06/21/19 20 1 CLOSED Fetus Data First Name Last Name Admitted to NICU Weight (g) Sex Living Outcome Pediatric Complications Fetus ID Race Codes Race Delivery Type 3316.66 4704 M Full Term 407 V Back Yunier Calculation Initial Yunier Date Initial Exam Date Initial Exam Provider Initial Ultrasound Date Last Menstrual Period Date Ultra Sound Weeks Gestation 0 Eighteen To Twenty Week Yunier Update Ultra Sound Date Fundal Height At Umbil Quickening Date Ultra Sound Latest Weeks Gestation Final Yunier Confirmed By Final Yunier Confirmed Date Final Yunier Date Ultra Sound Latest Days Gestation 0 0 Menstrual History Last Menstrual Date Menses Monthly On Bcp Conception Prior Menses Frequency Hcg Plus Date Menarche Onset Age Delivery Information Delivery Date Delivery Type Labor Anesthesia Weeks Gestation Incision Type Labor Labor Length Hrs Delivered By Post Complications Tubal Sterilization Discharge Date Comments 9 39 Discharge Information Feeding Method Contraceptive Method Maternal HG B and HCT Levels Ob Episode Information Episode Created Date Number of Fetuses Patient Bloodtype Patient rh Status Prepregnancy Weight lbs Domestic Partner Domestic Partner Phone Father Name Spray Gunner Status 06/21/19 20 1 CLOSED Fetus Data First Name Last Name Admitted to NICU Weight (g) Sex Living Outcome Pediatric Complications Fetus ID Race Codes Race Delivery Type , Spontane ous 329 Yunier Calculation Initial Yunier Date Initial Exam Date Initial Exam Provider Initial Ultrasound Date Last Menstrual Period Date Ultra Sound Weeks Gestation 0 Eighteen To Twenty Week Yunier Update Ultra Sound Date Fundal Height At Umbil Quickening Date Ultra Sound Latest Weeks Gestation Final Yunier Confirmed By Final Yunier Confirmed Date Final Yunier Date Ultra Sound Latest Days Gestation 0 0 Menstrual History Last Menstrual Date Menses Monthly On Bcp Conception Prior Menses Frequency Hcg Plus Date Menarche Onset Age Delivery Information Delivery Date Delivery Type Labor Anesthesia Weeks Gestation Incision Type Labor Labor Length Hrs Delivered By Post Complications Tubal Sterilization Discharge Date Comments 6 miscarri a ge Discharge Information Feeding Method Contraceptive Method Maternal HG B and HCT Levels Ob Episode Information Episode Created Date Number of Fetuses Patient Bloodtype Patient rh Status Prepregnancy Weight lbs Domestic Partner Domestic Partner Phone Father Name Spray Gunner Status 06/21/19 20 1 CLOSED Fetus Data First Name Last Name Admitted to NICU Weight (g) Sex Living Outcome Pediatric Complications Fetus ID Race Codes Race Delivery Type 3968.93 M Full Term 330 Vaginal Delivery Yunier Calculation Initial Yunier Date Initial Exam Date Initial Exam Provider Initial Ultrasound Date Last Menstrual Period Date Ultra Sound Weeks Gestation 0 Eighteen To Twenty Week Yunier Update Ultra Sound Date Fundal Height At Umbil Quickening Date Ultra Sound Latest Weeks Gestation Final Yunier Confirmed By Final Yunier Confirmed Date Final Yunier Date Ultra Sound Latest Days Gestation 0 0 Menstrual History Last Menstrual Date Menses Monthly On Bcp Conception Prior Menses Frequency Hcg Plus Date Menarche Onset Age Delivery Information Delivery Date Delivery Type Labor Anesthesia Weeks Gestation Incision Type Labor Labor Length Hrs Delivered By Post Complications Tubal Sterilization Discharge Date Comments 7 Discharge Information Feeding Method Contraceptive Method Maternal HG B and HCT Levels Ob Episode Information Episode Created Date Number of Fetuses Patient Bloodtype Patient rh Status Prepregnancy Weight lbs Domestic Partner Domestic Partner Phone Father Name Spray Gunner Status 06/21/19 1 DELETED Yunier Calculation Initial Yunier Date Initial Exam Date Initial Exam Provider Initial Ultrasound Date Last Menstrual Period Date Ultra Sound Weeks Gestation 0 Eighteen To Twenty Week Yunier Update Ultra Sound Date Fundal Height At Umbil Quickening Date Ultra Sound Latest Weeks Gestation Final Yunier Confirmed By Final Yunier Confirmed Date Final Yunier Date Ultra Sound Latest Days Gestation 0 0 Menstrual History Last Menstrual Date Menses Monthly On Bcp Conception Prior Menses Frequency Hcg Plus Date Menarche Onset Age Delivery Information Delivery Date Delivery Type Labor Anesthesia Weeks Gestation Incision Type Labor Labor Length Hrs Delivered By Post Complications Tubal Sterilization Discharge Date Comments 9 Discharge Information Feeding Method Contraceptive Method Maternal HG B and HCT Levels Ob Episode Information Episode Created Date Number of Fetuses Patient Bloodtype Patient rh Status Prepregnancy Weight lbs Domestic Partner Domestic Partner Phone Father Name Spray Gunner Status 06/21/19 1 DELETED Yunier Calculation Initial Yunier Date Initial Exam Date Initial Exam Provider Initial Ultrasound Date Last Menstrual Period Date Ultra Sound Weeks Gestation 0 Eighteen To Twenty Week Yunier Update Ultra Sound Date Fundal Height At Umbil Quickening Date Ultra Sound Latest Weeks Gestation Final Yunier Confirmed By Final Yunier Confirmed Date Final Yunier Date Ultra Sound Latest Days Gestation 0 0 Menstrual History Last Menstrual Date Menses Monthly On Bcp Conception Prior Menses Frequency Hcg Plus Date Menarche Onset Age Delivery Information Delivery Date Delivery Type Labor Anesthesia Weeks Gestation Incision Type Labor Labor Length Hrs Delivered By Post Complications Tubal Sterilization Discharge Date Comments 2 Discharge Information Feeding Method Contraceptive Method Maternal HG B and HCT Levels Ob Episode Information Episode Created Date Number of Fetuses Patient Bloodtype Patient rh Status Prepregnancy Weight lbs Domestic Partner Domestic Partner Phone Father Name Spray Gunner Status 06/21/19 1 CLOSED Fetus Data First Name Last Name Admitted to NICU Weight (g) Sex Living Outcome Pediatric Complications Fetus ID Race Codes Race Delivery Type 2976.47 0704 F Full Term 403 Vaginal Delivery Yunier Calculation Initial Yunier Date Initial Exam Date Initial Exam Provider Initial Ultrasound Date Last Menstrual Period Date Ultra Sound Weeks Gestation 0 Eighteen To Twenty Week Yunier Update Ultra Sound Date Fundal Height At Umbil Quickening Date Ultra Sound Latest Weeks Gestation Final Yunier Confirmed By Final Yunier Confirmed Date Final Yunier Date Ultra Sound Latest Days Gestation 0 0 Menstrual History Last Menstrual Date Menses Monthly On Bcp Conception Prior Menses Frequency Hcg Plus Date Menarche Onset Age Delivery Information Delivery Date Delivery Type Labor Anesthesia Weeks Gestation Incision Type Labor Labor Length Hrs Delivered By Post Complications Tubal Sterilization Discharge Date Comments 2 38.3 Discharge Information Feeding Method Contraceptive Method Maternal HG B and HCT Levels Ob Episode Information Episode Created Date Number of Fetuses Patient Bloodtype Patient rh Status Prepregnancy Weight lbs Domestic Partner Domestic Partner Phone Father Name Spray Gunner Status 02/19/20 21 1 CLOSED Fetus Data First Name Last Name Admitted to NICU Weight (g) Sex Living Outcome Pediatric Complications Fetus ID Race Codes Race Delivery Type 3543.46 0704 M Full Term [id number] Vaginal Delivery Yunier Calculation Initial Yunier Date Initial Exam Date Initial Exam Provider Initial Ultrasound Date Last Menstrual Period Date Ultra Sound Weeks Gestation 0 Eighteen To Twenty Week Yunier Update Ultra Sound Date Fundal Height At Umbil Quickening Date Ultra Sound Latest Weeks Gestation Final Yunier Confirmed By Final Yunier Confirmed Date Final Yunier Date Ultra Sound Latest Days Gestation 0 0 Menstrual History Last Menstrual Date Menses Monthly On Bcp Conception Prior Menses Frequency Hcg Plus Date Menarche Onset Age Delivery Information Delivery Date Delivery Type Labor Anesthesia Weeks Gestation Incision Type Labor Labor Length Hrs Delivered By Post Complications Tubal Sterilization Discharge Date Comments 9 Discharge Information Feeding Method Contraceptive Method Maternal HG B and HCT Levels Ob Episode Information Episode Created Date Number of Fetuses Patient Bloodtype Patient rh Status Prepregnancy Weight lbs Domestic Partner Domestic Partner Phone Father Name Spray Gunner Status 02/19/20 21 1 CLOSED Fetus Data First Name Last Name Admitted to NICU Weight (g) Sex Living Outcome Pediatric Complications Fetus ID Race Codes Race Delivery Type 3515.33 8 M Full Term [id number] Vaginal Delivery Yunier Calculation Initial Yunier Date Initial Exam Date Initial Exam Provider Initial Ultrasound Date Last Menstrual Period Date Ultra Sound Weeks Gestation 0 Eighteen To Twenty Week Yunier Update Ultra Sound Date Fundal Height At Umbil Quickening Date Ultra Sound Latest Weeks Gestation Final Yunier Confirmed By Final Yunier Confirmed Date Final Yunier Date Ultra Sound Latest Days Gestation 0 0 Menstrual History Last Menstrual Date Menses Monthly On Bcp Conception Prior Menses Frequency Hcg Plus Date Menarche Onset Age Delivery Information Delivery Date Delivery Type Labor Anesthesia Weeks Gestation Incision Type Labor Labor Length Hrs Delivered By Post Complications Tubal Sterilization Discharge Date Comments 2 Discharge Information Feeding Method Contraceptive Method Maternal HG B and HCT Levels
[2024-06-10 14:11] LABS: Basophils Absolute Auto 0.1 K/mm3 (0.0-0.1); Basophils Percent Auto 0.8 % (0.2-1.2); Eosinophils Absolute Auto 0.1 K/mm3 (0-0.3); Hematocrit 46.4 % (37.0-47.0); Hemoglobin 15.5 g/dL (12.0-15.0); Immature Granulocyte Absolute 0.02 K/mm3 (0.00-0.031); Immature Granulocyte Percent A 0.3 % (0-0.5); Lymphocytes Absolute Auto 2.46 K/mm3 (0.9-3.2); Lymphocytes Percent Auto 34.3 % (18.3-44.2); Mean Corpuscular HGB Conc 33.4 g/dl (32-36); Mean Corpuscular Hemoglobin 28.5 pg (26-34); Mean Corpuscular Volume 85.3 fl (80-100); Mean Platelet Volume 10.9 fl (7.4-10.4); Monocytes Absolute Auto 0.4 K/mm3 (0.1-0.6); Neutrophils Absolute Auto 4.1 K/mm3 (1.3-6.7); Neutrophils Percent Auto 57.6 % (45.5-73.1); Platelet Count Result 259 k/mm3 (150-375); Red Blood Count 5.44 M/mm3 (4.2-5.4); Red Cell Distribution Width 13.4 % (11.5-14.5); White Blood Count 7.2 K/mm3 (4.5-10.0)
[2024-06-10 14:29] LABS: Alanine Aminotransferase 27 U/L (6-35); Albumin Level 4.3 g/dL (3.5-5.1); Alkaline Phosphatase 74 U/L (38-126); Anion Gap 8 mmol/L (4-12); Aspartate Amino Transferase 26 U/L (14-36); Bilirubin,Total 0.6 mg/dL (0.2-1.3); Blood Urea Nitrogen 8 mg/dL (7-17); Calcium 8.8 mg/dL (8.4-10.2); Carbon Dioxide 21 mmol/L (22-30); Chloride 108 mmol/L (98-107); Cholesterol 141 mg/dL (0-200); Estimated Glomerular Filt Rate > 60; Glucose 87 mg/dL (65-110); HDL Direct 32 mg/dL; Potassium 3.9 mmol/L (3.4-5.0); Sodium 137 mmol/L (137-145); Triglycerides 196 mg/dL (<150)
[2024-06-10 14:40] LABS: LDL Cholesterol Direct 79 mg/dL
[2024-06-10 15:16] LABS: Iron 117 ug/dL (37-170)
[2024-06-10 15:26] LABS: Percent Iron Saturation 38 % (20-50)
[2024-06-10 16:21] LABS: Vitamin D 25 Hydroxy 22.7 ng/mL
[2024-06-10 16:58] LABS: Hemoglobin A1C 5.5 % (<5.7)
== END 2024-06-10 11:59 | disposition home or self-care (01) ==
PROVIDERS: PCP Family Medicine; Referring Provider Nurse Practitioner
DX: Z13.220 Encounter for screening for lipoid disorders (principal); Z13.1 Encounter for screening for diabetes mellitus; Z13.29 Encounter for screening for other suspected endocrine disorder; M47.816 Spondylosis without myelopathy or radiculopathy, lumbar region; M47.817 Spondylosis without myelopathy or radiculopathy, lumbosacral region; R22.31 Localized swelling, mass and lump, right upper limb; E55.9 Vitamin D deficiency, unspecified; J84.9 Interstitial pulmonary disease, unspecified; E61.1 Iron deficiency
CPT/HCPCS: 36415; 72100; 80053; 80061; 82306; 83036; 83540; 83550; 84443; 85025; 93971

== ENCOUNTER 2024-08-08 16:20 | Emergency (ER) | payer OTHER, SELFPAY ==
--- NOTE | 2024-08-08 16:23 | ED.DENTAL ---
HPI - Dental/Oral General Chief complaint: Extremity Injury, Lower Stated complaint: Dental/Left Leg/Foot Pain Time Seen by Provider: 08/08/24 16:23 Source: patient Mode of arrival: ambulatory Limitations: no limitations History of Present Illness HPI Narrative: Mary is a 49-year-old female patient presenting to the clinic today with complaints of right lower dental pain/possible abscess and left leg/foot swelling. She reports the dental abscess is been going on for the past few days as well as the left leg foot swelling has been going on for 3 days. She reports she recently traveled to [place] and [facility]. She is a smoker. Denies any fevers, chills, body aches. Does report pain and swelling to the calf of the left leg. No localized redness or erythema. Does not take any hormones. She denies any chest pain or shortness of breath. Related Data Home Medications ?Medication ?Instructions ?Recorded ?Confirmed ?Last Taken ?Type rimegepant 75 mg disintegrating 75 mg PO ONCE PRN Migraine Headache 02/18/21 04/22/21 Unknown History tablet (Nurtec ODT) pregabalin 50 mg capsule 50 mg PO BID 04/01/21 04/22/21 Unknown History Allergies Allergy/AdvReac Type Severity Reaction Status Date / Time No Known Allergies Allergy Verified 08/08/24 16:25 Review of Systems Review of Systems: Pertinent positives per HPI. Patient denies any fever, chills, rash, headache, visual changes, dizziness, cough, shortness of breath, chest pain, palpitations, nausea, vomiting, diarrhea, constipation, abdominal pain, or any urinary issues. [facility] Past Medical History Medical History delivery delivered Migraine Family History Family History Mother Cerebrovascular accident Father Acute myocardial infarction Social History Social History Social History: occasional caffeine use Smoking packs per day: 0.5 Smoking cigarettes per day: 10.0 Years smoked: 20 Smoking pack-years: 10.00 Smoking status: Current every day smoker Tobacco type: cigarettes Alcohol intake: never Substance use: never Substance use type: does not use Living arrangements: with family Spiritual care concerns: No Comments At the time of my signature, I reviewed and agree with the nursing past medical, surgical, social, and family history. There is no relevant family history pertinent to the patient complaint. Exam Narrative: General: Well-developed, well nourished, in no apparent distress Head: Normocephalic, atraumatic Eyes: Pupils equally round and reactive to light bilaterally, EOM intact, sclera and conjunctive clear, no discharge, lids normal Ears: TMs intact and clear, ear canals clear, no drainage, grossly hearing normal. Nose: Nares patent, no discharge, no inflammation, no sinus tenderness. Mouth: Oral pharynx without lesions or masses, poor dentition, MMM. Dental abscess to the right posterior molar Neck: Supple, trachea midline, no enlargement of anterior or posterior cervical nodes, no thyroid masses or goiter palpable. Cardio: Regular rate and rhythm, s1 and s2 normal, no murmur appreciated. Resp: Clear to auscultation bilaterally, no rhonchi, rales, wheezing or rubs Musculoskeletal: No deformity,tender to palpation over the calf, grossly normal range of motion, muscle strength strong and equal, peripheral pulse strong, 2+ pitting edema to the left foot and 1+ pitting edema to the left leg, positive Homans sign no cyanosis, normal gait and station Course Course Emergency Course: Portions of this record may have been created with voice recognition software. Level of Care: Express Care Visit Vital Signs Vital signs: Vital Signs Temperature 36.7 C 08/08/24 16:32 Pulse Rate 65 08/08/24 16:32 Respiratory Rate 16 08/08/24 16:32 Blood Pressure 128/78 08/08/24 16:32 Pulse Oximetry 100 08/08/24 16:32 Oxygen Delivery Room Air 08/08/24 16:32 Temperature 36.7 C 08/08/24 16:32 Pulse Rate 65 08/08/24 16:32 Respiratory Rate 16 08/08/24 16:32 Blood Pressure 128/78 08/08/24 16:32 Pulse Oximetry 100 08/08/24 16:32 Oxygen Delivery Room Air 08/08/24 16:32 Vital signs reviewed Transfer Transfered to: [facility]) Transportation: Other (Private car) Transfer rationale: Left lower extremity swelling rule out DVT Accepting physician: Dr. Cason Transfer comments: private car MDM - Dental/Oral MDM Narrative Medical decision making narrative: At the time of visit patient is resting comfortably on the exam table. Patient appears to be nontoxic. Plan: Recommend transfer to the emergency room for DVT rule out. Patient would like to go to [place] emergency room. Venous ultrasound available in recommend transferring the patient to another location. Patient would like to go to [facility]. [facility] is on time critical diagnosis and would not accept the patient however they recommend sending her to [facility] in [place]. Report was called to Dr. Cason at [facility]. Patient to transferred via private car. Prescription for Augmentin was sent to the pharmacy as they stated they would not be able to address the patient's dental abscess. Differential Diagnosis Differential diagnosis: Likely gingival abscess, dental caries, toothache, dental abscess, fracture of tooth, aphthous ulcer and other (Left lower extremity swelling, DVT, congestive heart failure) Discharge Plan Discharge Clinical Impression: Pain and swelling of left lower leg, Dental abscess Patient Disposition: Acute Care Hospital Condition: Stable Patient Language: Lao Prescriptions: New amoxicillin-pot clavulanate 875-125 mg tablet 1 tablet PO Q12H 10 Days Qty: 20 0RF No Action Nurtec ODT 75 mg tablet,disintegrating 75 mg PO ONCE PRN (Reason: Migraine Headache) Rx Instructions: as a single dose; not to exceed 1 dose per 24 hrs OR 15 doses per 30 days cyanocobalamin (vitamin B-12) [Vitamin B-12] 1,000 mcg Tablet 1,000 mcg PO QAM Qty: 30 0RF pregabalin 50 mg capsule 50 mg PO BID Follow-up/Referrals: Mikhail,Supriya Montes, STRAIGHT CUTTER [Primary Care Provider] - Quality NIHSS Nursing Documentation ED NIHSS nursing documentation: reviewed/agree
[2024-08-08 16:32] VITALS: BP 128/78; PULSE 65; RESP 16; TEMP 36.7; O2SAT 100
== END 2024-08-08 17:22 | disposition short-term general hospital (02) ==
PROVIDERS: Emergency Provider Nurse Practitioner Family
DX: M79.662 Pain in left lower leg (principal); R22.42 Localized swelling, mass and lump, left lower limb; K04.7 Periapical abscess without sinus; F17.210 Nicotine dependence, cigarettes, uncomplicated
CPT/HCPCS: 99213; G0463

== ENCOUNTER 2024-12-16 09:37 | Outpatient (CLI) | payer OTHER, SELFPAY ==
--- NOTE | 2024-12-16 | ECHO_ITS ---
Patient Info Name: Mary Gunderson Age: 49 years : 1975 Gender: Female Ht: 61 in Wt: 163 lbs BSA: 1.81 m2 HR: 64 bpm BP: 136 / 78 mmHg Heart Rhythm: Sinus Rhythm Technical Quality: Good Exam Date: 12/16/2024 10:07 AM Patient Status: O Admit Date: 12/16/2024 Exam Type: CA echo doppler color flow Complete two-dimensional, color flow and Doppler transthoracic echocardiogram is performed. Brand Ambassador Promotional Model: Nhi Heaton Attending Provider: Lucia Multani Summary 1. Complete two-dimensional, color flow and Doppler transthoracic echocardiogram is performed. 2. Left ventricular chamber dimension is normal. 3. Left ventricular systolic function is normal, estimated at 60-65. 4. There is no increased left ventricular wall thickness. 5. The left ventricular diastolic function is normal. 6. There is mild tricuspid valve regurgitation. 7. There is mild pulmonic regurgitation. 8. No pulmonary hypertension, estimated pulmonary arterial systolic pressure is 27 mmHg. Left Ventricle Left ventricular chamber dimension is normal. Left ventricular systolic function is normal, estimated at 60-65. There is no increased left ventricular wall thickness. The left ventricular diastolic function is normal. Right Ventricle Right ventricular chamber dimension is normal. Right ventricular systolic function is normal. Left Atria Left atrial chamber dimension is normal. Right Atria Right atrial chamber dimension is normal. Atrial Septum Intact interatrial septum visualized by color flow imaging. Aortic Valve The aortic valve is trileaflet. There is mild aortic valve sclerosis. There is no aortic valve stenosis. There is trace aortic valve regurgitation. Pulmonic Valve The pulmonic valve is normal. There is no pulmonic valve stenosis. There is mild pulmonic regurgitation. Mitral Valve The mitral valve has normal leaflets. There is no mitral valve stenosis. There is trace mitral valve regurgitation. Tricuspid Valve The tricuspid valve leaflets are normal. There is no significant tricuspid valve stenosis. There is mild tricuspid valve regurgitation. No pulmonary hypertension, estimated pulmonary arterial systolic pressure is 27 mmHg. Pericardium/Pleural The pericardium appears normal. There is no pericardial effusion. Inferior Vena Cava Normal inferior vena cava with >50% collapse upon inspiration consistent with normal right atrial pressure, 10 mmHg. Aorta The aortic root size at the sinus of Valsalva is normal. Left Ventricular Outflow Tract Name Value Normal LVOT 2D LVOT Diameter 2.0 cm LVOT Doppler LVOT Peak Velocity 96 cm/s LVOT Peak Gradient 4 mmHg LVOT Mean Gradient 2 mmHg LVOT VTI 19 cm LVOT VTI/AV VTI Ratio 0.8 LVOT Stroke Volume 58 ml LVOT CO 3.7 l/min LVOT CI 2.0 l/min/m2 Pulmonic Valve Name Value Normal RVOT Doppler RVOT Peak Velocity 54 cm/s RVOT Peak Gradient 1 mmHg PV Doppler PV Peak Velocity 89 cm/s PV Peak Gradient 3 mmHg Mitral Valve Name Value Normal MV Diastolic Function MV E Peak Velocity 74 cm/s MV A Peak Velocity 68 cm/s MV E/A 1.1 MV Decel Time (PW) 254 ms MV Annular TDI MV E/e' (Septal) 9.4 MV E/e' (Lateral) 7.1 MV E/e' (Average) 8.3 Tricuspid Valve Name Value Normal TV Regurgitation Doppler TR Peak Velocity 203 cm/s TR Peak Gradient 17 mmHg Estimated PAP/RSVP RA Pressure 10 mmHg <=5 PA Systolic Pressure 27 mmHg <36 RV Systolic Pressure 27 mmHg <36 TV Annular TDI TV Lateral Yessi s' Velocity 11.1 cm/s >=9.5 Aorta Name Value Normal Ascending Aorta Ao Root Diameter (MM) 3.1 cm Ao Root Diam Index (MM) 1.7 cm/m2 Aortic Valve Name Value Normal AV Doppler AV Peak Velocity 108 cm/s AV Peak Gradient 5 mmHg AV Mean Gradient 3 mmHg AV VTI 24 cm AV Area (Cont Eq VTI) 2.4 cm2 >=3.0 AV Area (Cont Eq Von) 2.7 cm2 AV DI (Von) 0.89 AV Regurgitation 2D LVOT Area 3.0 cm2 Ventricles Name Value Normal LV Dimensions 2D/MM IVS Diastolic Thickness (2D) 0.7 cm 0.6-1.0 LVID Diastole (2D) 5.0 cm 3.8-5.2 LVIW Diastolic Thickness (2D) 0.7 cm 0.6-0.9 LVID Systole (2D) 3.1 cm 2.2-3.5 LVOT Diameter 2.0 cm LV Mass (2D Cubed) 120.93 g 67.00-162.00 LV Mass Index (2D Cubed) 67 g/m2 43-95 Relative Wall Thickness (2D) 0.29 <=0.42 LV Fractional Shortening/Ejection Fraction 2D/MM LV Fractional Shortening (2D) 38 % 27-45 LV EF (2D Teichholz) 68 % LV Diastolic Volume (4C MOD) 65 ml LV EF (4C MOD) 68 % LV Diastolic Volume (2C MOD) 63 ml LV EF (2C MOD) 68 % LV Diastolic Volume (BP MOD) 65 ml 46-106 LV Diastolic Volume Index (BP MOD) 36 ml/m2 29-61 LV Systolic Volume (BP MOD) 21 ml 14-42 LV Systolic Volume Index (BP MOD) 12 ml/m2 8-24 LV EF (BP MOD) 67 % 54-74 LV Diastolic Length (4C) 8.1 cm LV Systolic Length (4C) 6.5 cm LV Stroke Volume (4C MOD) 44 ml Atria Name Value Normal LA Dimensions LA Dimension (MM) 3.7 cm 2.7-3.8 LA Volume (4C A-L) 21 ml LA Volume (BP A-L) 24 ml RA Dimensions RA Area (4C) 12.6 cm2 <=18.0 Report Signatures
== END 2024-12-16 09:38 | disposition home or self-care (01) ==
LOC: ANHCARD 09:43
PROVIDERS: Visit Provider Nurse Practitioner
DX: I07.1 Rheumatic tricuspid insufficiency (principal); I37.8 Other nonrheumatic pulmonary valve disorders; R06.09 Other forms of dyspnea; E55.9 Vitamin D deficiency, unspecified
CPT/HCPCS: 36415; 82306; 93306

== ENCOUNTER 2025-01-05 14:42 | Outpatient (CLI) | payer OTHER, SELFPAY ==
--- NOTE | ~2025-01-05 | US_ITS ---
PROCEDURE(S): Limited ultrasound of the soft tissues of the right upper extremity INDICATION(S): Palpable abnormality COMPARISON(S): None TECHNIQUE: Grayscale and color Doppler FINDINGS: In the palpable area is a circumscribed, heterogeneous, ovoid mass with maximum dimension of 8 mm. IMPRESSION: In the area of palpable clinical concern, a circumscribed mass is seen as described. This is probably a ganglion cyst. Correlate clinically, and obtain MR if there is continued concern regarding musculoskeletal masses. Reviewed, dictated and finalized at location A. IMPRESSION: In the area of palpable clinical concern, a circumscribed mass is s een as described. This is probably a ganglion cyst. Correlate clinically, and o btain MR if there is continued concern regarding musculoskeletal masses.
--- OUTSIDE RECORDS SUMMARY | 2025-01-05 15:07 | XMS_ITS | Clinical Summary ---
Author Organization [facility] Health Address [address] [address] Care Team Providers Care Card Punching Machine Operator Name Role Phone Gustavo Owens MD Unavailable [phone] Supriya Elizondo Primary Care Provider [phone] Source Comments [facility] [employer],non-owned Affiliates and Associated Physician Practices is amultiple site organization consisting of ambulatory clinics and hospital sitesin [place], [place], [place] and [place]. This disclosure is being madepursuant to the Care Everywhere program and may not contain all information available regarding this patient. Last updated 17.[facility] [employer] Allergies No known active allergies Medications * Be aware that medications may not be up to date on this document. Alwaysverify current medications with the patient. cyanocobalamin (VITAMIN B-12) 1000 MCG tablet Take 1 (one) tablet by mouth once daily Active HYDROcodone-acet aminophen ([place]) 5-325 MG tablet Take 1 (one) tablet by mouth every 4 hours as needed Active Nurtec 75 MG tabletIndication s:Intractable migraine with aura with status migrainosus DISSOLVE 1 TABLET ON THE TONGUE EVERY DAY NEEDED FOR MIGRAINE 8 tablet 11 5 Active meclizine (Antivert) 25 MG tabletIndication s:Benign paroxysmal positional vertigo, unspecified laterality Take 1 (one) tablet by mouth 2 times daily 180 tablet 3 5 Active topiramate (Topamax) 25 MG tabletIndication s:Intractable migraine with aura with status migrainosus Take 1 (one) tablet by mouth 2 times daily 180 tablet 4 5 Active donepezil (Aricept) 5 MG tabletIndication s:Memory changes,MCI (mild cognitive impairment) Take 1 (one) tablet by mouth once daily 90 tablet 3 5 Active Apixaban (Eliquis DVT/PE Starter Pack) 5 MG tablet Take 10 mg by mouth twice daily for one week, then 5 mg mouth twice daily there after 74 tablet 5 Active amitriptyline (Elavil) 25 MG tabletIndication s:Intractable migraine with aura with status migrainosus TAKE 1 TABLET BY MOUTH EVERY EVENING 90 tablet 4 5 Active Active Problems Problem Noted Date Diagnosed [...] Encounters Date Type Department Care Team Description 12/26/2024 Travel from Last 3 Months Family History Medical [...] = 0.6 oz pur e alcohol) Comments Unknown Sex and Gender Information Value Date Recorded Sex Assigned at Not on file Legal Sex Female 2:58 PM SPACER TYPE BAR AND SEGMENT Gender Identity Not on file Sexual Orientation Not on file Last Filed Vital Signs Vital Sign Reading Time Taken Comments Blood Pressure 135/80 08/08/2024 9:56 PM CDT Pulse 66 08/08/2024 9:56 PM CDT Temperature 36.6 C (97.8 F) 08/08/2024 6:00 PM CDT Respiratory Rate 16 08/08/2024 9:56 PM CDT Oxygen Saturation 98% 08/08/2024 9:56 PM CDT Inhaled Oxygen Concentration - - Weight 68 kg (150 lb) 08/08/2024 6:00 PM CDT Height 152.4 cm (5') 08/08/2024 6:00 PM CDT Body Mass Index 29.29 08/08/2024 6:00 PM CDT Plan of Treatment Upcoming Encounters Date Type Department Care Team (Late st Contact Info) Description 02/08/2025 10:30 AM SPACER TYPE BAR AND SEGMENT Office Visit [facility] - Neurology [address] [place] [address], [place] [address] Arleen Rodriguez APRN-SALESPERSON [employer] [address] [place] [address] [place] [address] Health Maintenance Due Date Last Done Comments COLON MONITORING 1975 COLONOSCOPY - COLON CA SCREENING 1975 CT COLONOGRAPHY - COLON CA SCREENING 1975 FIT - COLON CA SCREENING 1975 FLEX SIG - COLON CA SCREENING 1975 LIPID TESTING 1975 MAMMOGRAM 1975 HIV SCREENING 1992 HEPATITIS C SCREENING 06/29/1995 DTAP/TDAP/TD VACCINES (1 - Tdap) 1996 HEPATITIS B VACCINE (1 of 3 - 19+ 3-dose series) 1996 PNEUMOCOCCAL VACCINE (1 of 2 - PCV) 1996 PAP with HPV 07/04/2007 DEPRESSION SCREENING 03/09/2024 COVID-19 VACCINE (1 - 2023-2 5 season) 2024 INFLUENZA VACCINE (#1) 2024 COLOGUARD (AGES 45-75) - COL ON CA SCREENING 06/11/2027 06/10/2024 Colorectal Cancer Screening 06/11/2027 ZOSTER VACCINE (1 of 2) 07/04/2027 SCREENING FOR DIABETES 08/09/2027 08/08/2024 HIB VACCINE Aged Out No longer eligi [...] Procedure Name Priority Date/Time Associated Diagnosis Comments COMPREHENSIVE METABOLIC PANEL STAT 08/08/2024 8:02 PM CDT from Last 3 Months or Most Recently Relevant to Health Maintenance Results * (ABNORMAL) COMPREHENSIVE METABOLIC PANEL (08/08/2024 8:02 PM CDT) Glucose 113(H) 70 - 99 mg/dL 08/08/2024 8:25 PM CDT [facility] Sodium 138 136 - 145 mmol/L 08/08/2024 8:25 PM CDT [facility] Potassium 3.7 3.5 - 5.1 mmol/L 08/08/2024 8:25 PM CDT [facility] Chloride 109(H) 98 - 107 mmol/L 08/08/2024 8:25 PM CDT [facility] CO2 23 22 - 29 mmol/L 08/08/2024 8:25 PM CDT [facility] Calcium 8.9 8.4 - 10.4 mg/dL 08/08/2024 8:25 PM CDT [facility] Anion Gap 6 6 - 16 mmol/L 08/08/2024 8:25 PM CDT [facility] BUN 7 5.3 - 18.7 mg/dL 08/08/2024 8:25 PM CDT [facility] Creatinine 0.74 0.57 - 1.11 mg/dL 08/08/2024 8:25 PM CDT [facility] Alkaline Phosphatase 68 40 - 150 U/L 08/08/2024 8:25 PM CDT [facility] ALT 21 6 - 57 U/L 08/08/2024 8:25 PM CDT [facility] AST 19 10 - 48 U/L 08/08/2024 8:25 PM CDT [facility] Protein Total 6.8 6.4 - 8.3 gm/dL 08/08/2024 8:25 PM CDT [facility] Albumin 4.4 3.1 - 4.5 gm/dL 08/08/2024 8:25 PM CDT [facility] Bilirubin Total 0.3 0.2 - 1.2 mg/dL 08/08/2024 8:25 PM CDT [facility] eGFR by CKD-EPI >90 >=90 mL/min/1.7 3 m2 08/08/2024 8:25 PM CDT [facility] Blood BLOOD SPECIMEN / Unknown Venipuncture / Unknown 08/08/2024 8:02 PM CDT 08/08/2024 8:06 PM CDT [facility] - CHEMISTRY ORDERABLES Fi nal Result Performing Organization Address [facility]/State/[facility] Co de Phone Number [facility] [address] [place] [address] from Last 3 Months or Most Recently Relevant to Health Maintenance Insurance [facility] Care Teams Card Punching Machine Operator Relationship Specialty Start Date End Date Supriya Elizondo [address] [place] [address] [place] [phone] PCP - General 06/27/24 Gustavo Owens MD [address] OF NEUROLOGY [place], [place] Resident Neurology 03/28/21
--- OUTSIDE RECORDS SUMMARY | 2025-01-05 15:07 | XMS_ITS | Encounter Summary ---
Author Organization [facility] Address [address] [place] [address] Phone Care Team Providers Care Coating Mixer Supervisor Name Role Phone Magdalena Walden Primary Care Provider [phone] Supriya Elizondo DELIVERY REP Primary Care Provider Encounter Details Date Type Department Care Team [...] file Legal Sex Female 6:14 PM SENIOR MAINTENANCE MACHINIST Gender Identity Female 06/14/2024 3:39 PM CDT Sexual Orientation Straight 06/14/2024 3: 39 PM CDT documented as of this encounter Plan of Treatment Not on file documented as of this encounter Procedures Procedure Name Priority Date/Time Associated Diagnosis Comments SCAN - RADIOLOGY/IMAGING 07/07/2022 documented in this encounter Results * SCAN - RADIOLOGY/IMAGING (07/07/2022) Anatomical Region Laterality Modality Other us Provider Scanning Final Result documented in this encounter Visit Diagnoses Not on filedocumented in this encounter Care Teams Coating Mixer Supervisor Relationship Specialty Start Date End Date Magdalena Walden PA [address] [place] [address] PCP - General 05/19/22 11/29/24 Supriya Elizondo NP [address] [place] [address] PCP - General Nurse Practitioner 11/30/24 documented as of this encounter
--- OUTSIDE RECORDS SUMMARY | 2025-01-05 15:07 | XMS_ITS | Encounter Summary ---
Author Organization [facility] Healthcare Address [address] [place] [id number] Care Team Providers Care Ice Puller Name Role Phone Unavailable Primary Care Provider Unavailabl e Reason for Visit * MRI/CAT/PET Scan (Routine) - Closed Specialty Diagnoses / Procedures Referred By Yokasta t Referred To Contact Procedures MSK MR Outside Reference Transcribed Order, Provider Referral ID Status Reason Start Date Expiration Date Visits Re quested Visits Authorized [id number] Closed 10/14/2021 11/13/2022 1 1 Encounter Details Date Type Department Care Team (Late st Contact Info) Description 1975 Ancillary Procedure [facility] Outside Films [address] [facility] [place] [address] Social History Tobacco Use Types Packs/Day Years Used Date Smoking Tobacco: Never Assessed Comments Unknown Sex and Gender Information Value Date Recorded Sex Assigned at Not on file Legal Sex Female 6:14 PM BILINGUAL INTERPRETER Gender Identity Female 06/14/2024 3:39 PM CDT Sexual Orientation Straight 06/14/2024 3: 39 PM CDT documented as of this encounter Plan of Treatment Not on file documented as of this encounter Procedures Procedure Name Priority Date/Time Associated Diagnosis Comments MSK MR OUTSIDE REFERENCE Routine 1977 12:00 AM BILINGUAL INTERPRETER documented in this encounter Results * MSK MR Outside Reference (1975 12:00 AM BILINGUAL INTERPRETER) Narrative [email or web address] - 10/14/2021 2:49 PM CDT This order has been auto-finalized and does not contain a result. us Provider Transcribed Order IMG MRI PROCEDURES Fi nal Result Performing Organization Address City/State/[facility] Co de Phone Number [email or web address] documented in this encounter Visit Diagnoses Not on filedocumented in this encounter
--- OUTSIDE RECORDS SUMMARY | 2025-01-05 15:07 | XMS_ITS | Clinical Summary ---
Author Organization [facility] Address [address] [place] [id number] Phone Care Team Providers Care Chiropractic Teacher Name Role Phone Carlos Shah MD Primary Care Provider [phone] Allergies No known active allergies Medications VIT/FE [...] on file Legal Sex Female 6:03 AM CERTIFIED PROSTHETIST VICE PRESIDENT Gender Identity Not on file Sexual Orientation Not on file Last Filed Vital Signs Vital Sign Reading Time Taken Comments Blood Pressure 113/64 03/06/2018 9:32 AM CERTIFIED PROSTHETIST VICE PRESIDENT Pulse 80 03/05/2018 4:15 PM CERTIFIED PROSTHETIST VICE PRESIDENT Temperature 36.9 C (98.5 F) 03/06/2018 9:32 AM CERTIFIED PROSTHETIST VICE PRESIDENT Respiratory Rate 17 03/06/2018 9:32 AM CERTIFIED PROSTHETIST VICE PRESIDENT Oxygen Saturation - - Inhaled Oxygen Concentration - - Weight 68 kg (150 lb) 03/05/2018 4:15 PM CERTIFIED PROSTHETIST VICE PRESIDENT Height 152.4 cm (5') 03/05/2018 4:15 PM CERTIFIED PROSTHETIST VICE PRESIDENT Body Mass Index 29.29 03/05/2018 4:15 PM CERTIFIED PROSTHETIST VICE PRESIDENT Plan of Treatment Health Maintenance Due Date Last Done Comments DTAP/TDAP/TD VACCINES (1 - Tdap) 1996 HEPATITIS B VACCINES (1 of 3 - 19+ 3-dose series) 06/08 HPV/Cotest (21-29) 1998 CERVICAL CANCER SCREENING 07/04/2007 HPV/Cotest (30-65) 07/04/2007 PAP SMEAR 07/04/2007 BREAST CANCER SCREENING 2017 COLORECTAL SCREENING 2022 Colorectal Cancer Screening 2022 FIT-DNA Q 3 years 2022 FIT/FOBT Q 1 year 2022 Flex Sig/CT Colonography Q 5 years 2022 INFLUENZA VACCINE (#1) 2024 Insurance Advance Directives For more information, please contact: [phone] * Full Code (Latest Code Status on File) Date Activated Date Inactivated Comments 03/05/2018 3:46 PM 03/06/2018 2:55 PM Care Teams Chiropractic Teacher Relationship Specialty Start Date End Date Carlos Shah MD [address] [place] [address] PCP - General Family Practice 10/18/10
--- OUTSIDE RECORDS SUMMARY | 2025-01-05 15:07 | XMS_ITS | Encounter Summary ---
Author Organization [facility] Address [address] [place] [address] Phone Care Team Providers Care Size Stamper Name Role Phone Saleem Mckeon MD Primary Care Provider [phone] Magdalena Walden Primary Care Provider [phone] Supriya Elizondo NP Primary Care Provider Encounter Details Date Type [...] on file Legal Sex Female 6:14 PM TRACTOR TECHNICIAN Gender Identity Female 06/14/2024 3:39 PM CDT [...] on filedocumented in this encounter Care Teams Size Stamper Relationship Specialty Start Date End Date Saleem Mckeon MD PCP - General Emergency Medicine 05/21/21 05/18/22 Magdalena Walden PA [address] [place] [address] [place] [address] PCP - General 05/19/22 11/29/24 Supriya Elizondo NP [facility] [place] [address] PCP - General Nurse Practitioner 11/30/24 documented as of this encounter
--- OUTSIDE RECORDS SUMMARY | 2025-01-05 15:07 | XMS_ITS | Clinical Summary ---
Author Organization [facility] Address [address] [place] [address] Phone Care Team Providers Care Commercial Attorney Name Role Phone Supriya Elizondo POCKET STITCHER Primary Care Provider Allergies No known active allergies Medications gabapentin (NEURONTIN) 100 mg capsule Take 100 mg by mouth 3 (three) times a day 1 Active HYDROcodone-nathalia taminophen (NORCO) 5-325 mg per tablet Take 1 tablet by mouth every 4 (four) hours as needed for pain 2 Active cyanocobalamin (Vitamin B-12) 1,000 mcg tablet Take 1 tablet (1,000 mcg total) by mouth daily Active FeroSuL 325 mg (65 mg iron) tablet Take 1 tablet by mouth daily 2 Active rimegepant (Nurtec ODT) tablet,disinteg rating Take 1 tablet (75 mg total) by mouth daily as needed 1 Active pregabalin (LYRICA) 50 mg capsule Take 50 mg by mouth 2 (two) times a day 2 Active topiramate (TOPAMAX) 25 mg tablet Take 25 mg by mouth 2 (two) times a day 2 Active umeclidinium-vi lanteroL (Anoro Ellipta) 62.5-25 mcg/actuation blister with deviceIndicatio ns:Centrilobula r emphysema Inhale 1 puff daily 1 each 11 5 04/25/19 26 Active cholecalciferol (VITAMIN D-3) 50,000 unit capsule Take 1 capsule (50,000 Units total) by mouth once a week 8 capsule Active Additional Information Patient not taking.Reported on 11/30/2024 albuterol HFA (Ventolin HFA) 90 mcg/actuation inhaler Inhale 2 puffs every 4 (four) hours as needed for wheezing or shortness of breath 8 g 11 5 09/20/19 26 Active donepeziL (ARICEPT) 5 mg tablet Take 1 tablet (5 mg total) by mouth daily Active meclizine (ANTIVERT) 25 mg tablet Take 1 tablet (25 mg total) by mouth 2 (two) times a day 5 Active Active Problems Problem Noted Date Diagnosed Date Vitamin D deficiency 06/02/2024 Assessment & Plan (11/30/2024 3:44 PM CDT): She has completed 8 weeks of high dose replacement therapy I will recheck levels today Assessment & Plan (09/07/2024 1:01 PM CDT): I have sent for 8 weeks of high dose replacement therapy and will recheck levels in 9 weeks Assessment & Plan (06/02/2024 12:13 PM CDT): Likely a contributor to her fatigue Check levels today Iron deficiency 06/02/2024 Assessment & Plan (06/02/2024 12:13 PM CDT): She is no longer taking an additional Fe supplement Check Iron panel Interstitial lung disease 06/02/2024 Chronic obstructive pulmonary disease, unspecifi ed 04/25/2024 Assessment & Plan (11/30/2024 3:43 PM CDT): Continue Anoro Ellipta 1 puff daily at the same time Albuterol 2 puffs every 4-6 hours as needed only, she is aware of indications for use She does not exacerbate frequently and does not have peripheral eosinophilia. Avoid triggers and increase exercise as tolerated We have discussed signs and symptoms that would require earlier evaluation or change to her plan of care Assessment & Plan (09/07/2024 1:00 PM CDT): Continue Anoro Ellipta 1 puff daily at the same time Albuterol 2 puffs every 4-6 hours as needed only, she is aware of indications for use She does not exacerbate frequently and does not have peripheral eosinophilia. Need alpha1 buccal swab We have discussed signs and symptoms that would require earlier evaluation or change to her plan of care Assessment & Plan (06/02/2024 12:09 PM CDT): [...] care Assessment & Plan (04/25/2024 2:30 PM COACH OPERATOR): Emphysematous changes via CT chest Pulmonary [...] without complicati on 04/25/2024 Assessment & Plan (11/30/2024 3:44 PM CDT): - Smoking cessation counseling and techniques reviewed at length - Avoid triggers and use distraction techniques - Information given regarding [place] Tobacco Quit line: 6-161-HYOK-YES for free services - 5 minutes spent discussing cessation She does not qualify for annual lung cancer screening Her last CT chest was 04/2024 Assessment & Plan (09/07/2024 1:00 PM CDT): - Smoking cessation counseling and techniques reviewed at length - Avoid triggers and use distraction techniques - Information given regarding [place] Tobacco Quit line: 2-363-UJEQ-YES for free services - 4 minutes spent discussing cessation She does not qualify for annual lung cancer screening Her last CT chest was 04/2024 Assessment & Plan (06/02/2024 12:12 PM CDT): - Smoking cessation counseling and techniques reviewed at length - Avoid triggers and use distraction techniques - Information given regarding [place] Tobacco Quit line: 5-784-CROJ-YES for free services - 5 minutes spent discussing cessation She is currently pre contemplative about quitting and I have strongly encouraged her to call the quit line for free NRT She does not qualify for annual lung cancer screening, her last CT chest was 04/2024 Assessment & Plan (04/25/2024 2:29 PM COACH OPERATOR): - Smoking cessation counseling and techniques reviewed at length - Avoid triggers and use distraction techniques - Participate in support groups - Information given regarding [place] Tobacco Quit line: 0-552-FYQL-YES for free services - 5 minutes spent discussing cessation She was currently pre contemplative about quitting She does not qualify for annual lung cancer screening Fibromyalgia 07/23/2022 Migraines 07/23/[address] of the chest Resolved Problems Problem Noted Date Diagnosed Date Resolved Date Current smoker 07/23/2022 04/25/2024 Encounters Date Type Department Care Team Description 12/20/2024 Telephone [facility] Pulmonary at [address] [place] [address] Lizbet Kimbrough LPN Echo and lab results 12/02/2024 Telephone [facility] Pulmonary at [address] [place] [address] Tasha Valdez LPN Abnormal Echo 11/30/2024 11:30 AM CDT Office Visit [facility] Pulmonary at [address] [place] [address] Lucia Multani NP Dyspnea on exertion (Primary Dx); Vitamin D deficiency; Cigarette nicotine dependence without complication; Centrilobular emphysema (HCC) 10/12/2024 12:15 PM CDT Office Visit [facility] Cardiology [address] [facility] [address] [place] [address] Dav Wall MD Palpitations (Primary Dx); SOLIS (dyspnea on exertion); Tobacco abuse from Last 3 Months Surgical History Surgery Date Site/Laterality Comments CHOLECYSTECTOMY SECTION Medical History Medical History Date Comments 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 Patient does not drink Frequency of Binge Drinking Not on file 11/08 Comments Unknown Sex and Gender Information Value Date Recorded Sex Assigned at Not on file Legal Sex Female 6:14 PM COACH OPERATOR Gender Identity Female 06/14/2024 3:39 PM CDT Sexual Orientation Straight 06/14/2024 3: 39 PM CDT Obstetrics History Last Filed Vital Signs Vital Sign Reading Time Taken Comments Blood Pressure 120/64 11/30/2024 11:16 AM CDT Pulse 64 11/30/2024 11:16 AM CDT Temperature 36.6 C (97.8 F) 11/30/2024 11:16 AM CDT Respiratory Rate 16 11/30/2024 11:16 AM CDT Oxygen Saturation 97% 11/30/2024 11:16 AM CDT Inhaled Oxygen Concentration - - Weight 75.4 kg (166 lb 4.8 oz) 11/30/2024 11:16 AM CDT Height 152.4 cm (5') 11/30/2024 11:16 AM CDT Body Mass Index 32.48 11/30/2024 11:16 AM CDT Plan of Treatment Health Maintenance Due Date Last Done Comments Breast Cancer Screening-Mammogram 1977 Cervical Cancer Screening 1977 Colon Cancer Screening-Colonoscopy 1977 Depression Screening 1977 Regular Well Visit/Exam 18-64 07/04/1995 Pneumococcal vaccine <65 (1 of 2 - PCV) 1996 Influenza Vaccine (#1) 2024 DTaP/Tdap/Td Vaccine (4 - Td or Tdap) 08/16/2028 08/16/2018, 04/29/2016, 04/29/2016 Hepatitis B Screening Completed 05/12/2016 Hepatitis C Screening Completed 05/12/2016 Procedures Procedure Name Priority Date/Time Associated Diagnosis Comments ECG 12-LEAD Routine 10/12/2024 1:07 PM CDT Palpitations HEPATITIS PANEL, ACUTE Routine 05/12/2016 9:59 PM COACH OPERATOR from Last 3 Months or Most Recently Relevant to Health Maintenance Results * ECG 12 lead (10/12/2024 1:07 PM CDT) us Dav Wall MD ECG ORDERABLES Edited Result - Final * Hepatitis panel, acute (05/12/2016 9:59 PM COACH OPERATOR) HepBsAg NONREACT NONREACTIVE 05/12/2016 11:58 PM COACH OPERATOR [place] HISTORICAL RESULTS Comment: Siemens CentaurXP using VIJAYA (chemiluminescent immunoassay) technology. NONREACTIVE: IgM antibodies to Hepatitis B Surface antigen not detected. REACTIVE: IgM antibodies to Hepatitis B Surface antigen detected. Reactive results will be confirmed by neutralization testing. HBsAb qn < 3.10 mIU/mL 05/12/2016 11:48 PM COACH OPERATOR [place] HISTORICAL RESULTS Comment: Siemens CentaurXP using VIJAYA (chemiluminescent immunoassay) technology. 9.99 IU/L or less.....NONREACTIVE: IgM antibodies to Hepatitis B Surface antibody are not detected. 10.00 IU/L or greater..REACTIVE: IgM antibodies to Hepatitis B Surface antibody are detected. Hep B core IgM NONREACT NONREACTIVE 12:24 AM COACH OPERATOR [place] HISTORICAL RESULTS Comment: Siemens CentaurXP using VIJAYA (chemiluminescent immunoassay) technology. NONREACTIVE: IgM antibodies to Hepatitis B Core antigen not detected. EQUIVOCAL: IgM antibodies to Hepatitis B Core antigen may or may not be present. Obtain a new specimen and retest. REACTIVE: IgM antibodies to Hepatitis B Core antigen detected. Hep A IgM NONREACT NONREACTIVE 05/13/2016 12:25 AM COACH OPERATOR [place] HISTORICAL RESULTS Comment: Siemens CentaurXP using VIJAYA (chemiluminescent immunoassay) technology. NONREACTIVE: IgM antibodies to Hepatitis A not detected. This does not exclude possibility of exposure to Hepatitis A or early acute infection. EQUIVOCAL:IgM antibodies to Hepatitis A may or may not be present. Suggest recollection and retest. REACTIVE: Antibodies to Hepatitis A detected. Hep C Ab NONREACT NONREACTIVE Comment: Siemens CentaurXP using VIJAYA (chemiluminescent immunoassay) [...] to Hepatitis C detected. 05/12/2016 9:59 PM COACH OPERATOR 05/12/2016 10:01 PM COACH OPERATOR Luis Hernandez DO LAB MICROBIOLOGY - GENERAL ORDERABLES Final Result [facility] HISTORICAL RESULTS from Last 3 Months or Most Recently Relevant to Health Maintenance Insurance [facility] Care Teams Commercial Attorney Relationship Specialty Start Date End Date Supriya Elizondo NP [address] [facility] [place] [address] PCP - General Nurse Practitioner 11/30/24
--- OUTSIDE RECORDS SUMMARY | 2025-01-05 15:07 | XMS_ITS | Clinical Summary ---
Author Organization [facility] Care Team Providers Care Channel Partners Name Role Phone Unavailable Primary Care Provider Unavailabl e Social History Tobacco Use Types Packs/Day Years Used Date Smoking Tobacco: Never Assessed Comments Unknown Sex and Gender Information Value Date Recorded Sex Assigned at Not on file Legal Sex Female 1:44 PM OUTREACH COUNSELOR Gender Identity Not on file Sexual Orientation Not on file Plan of Treatment Health Maintenance Due Date Last Done Comments Hepatitis C Virus (HCV) Screening 1977 Hepatitis B Immunization (1 of 3 - 19+ 3-dose series) 1996 Pap Smear 1998 Cervical Cancer Screening (CCS) 07/04/2007 HPV/Cotest 07/04/2007 Cologuard 2022 Colonoscopy 2022 Colorectal Cancer Screening 2022 Immunochemical Fecal Occult Blood 2022 Influenza Immunization (#1) 2024 SARS-COV-2 Immunization ( season) 2024 Respiratory Syncytial Virus (RSV) Immunization (Adult) (1 - 1-dose 75+ series) 2052 DTaP/Tdap/Td Immunization Discontinued 2018, 04/29/2016 TdaP Immunization Completed 08/16/2018, 04/29/2016 Human Papillomavirus (HPV) Immunization Aged Out No longer eligible based on patient's age to complete this topic Meningococcal Immunization (ACWY) Aged Out No longer eligible based on patient's age to complete this topic Pneumococcal Immunization Combined Aged Out No longer eligible based on patient's age to complete this topic Rotavirus Immunization Aged Out No lo nger eligible based on patient's age to complete this topic
== END 2025-01-05 14:43 | disposition home or self-care (01) ==
DX: R22.31 Localized swelling, mass and lump, right upper limb (principal)
CPT/HCPCS: 76882